=== PATIENT | male | born 1960 | race Caucasian/White ===

== ENCOUNTER 2022-10-16 19:53 | Inpatient (IN) ==
--- NOTE | 2022-10-16 20:25 | XRay Report ---
SINGLE VIEW CHEST CLINICAL HISTORY: Atypical chest pain. FINDINGS: An AP, portable, upright chest radiograph is obtained. No prior studies are available for c omparison at the time of dictation. The patient is status post midline sternotomy. The heart is enlar ged noting atherosclerotic calcification of the thoracic aorta. The pulmonary vasculature is nonconge sted. The lungs and pleural spaces are clear noting bibasilar scarring/atelectasis. No pneumothorax i s seen. The skeletal structures are osteopenic. The bony thorax is grossly intact. IMPRESSION: Cardiomegaly with no acute cardiopulmonary abnormality. ACT 112: Negative or not required by law. Electronically signed by: Willian Landon M.D. 10/16/2022 8:22 PM
[2022-10-16 20:28] LABS: Basophils # (auto) 0.02 K/uL (0-0.2); Basophils % (auto) 0.3 %; Eosinophils # (auto) 0.25 K/uL (0-0.50); Eosinophils % (auto) 3.4 %; Hematocrit (blood only) 34.3 % (40.1-51.0); Hemoglobin 11.5 g/dl (14.0-18.0); Immature Granulocytes # (auto) 0.01 K/uL (0.00-0.02); Immature Granulocytes % (auto) 0.1 %; Lymphocytes # (auto) 0.98 K/uL (1.2-3.4); Lymphocytes % (auto) 13.3 %; Mean Corpuscular Hemoglobin 31.8 pg (25.0-34.0); Mean Corpuscular Hgb Conc 33.5 g/dL (32.0-36.0); Mean Corpuscular Volume 94.8 fL (80.0-100.0); Mean Platelet Volume 10.2 fL (9.4-12.4); Monocytes # (auto) 0.79 K/uL (0.24-0.82); Monocytes % (auto) 10.7 %; Neutrophils # (auto) 5.32 K/uL (1.4-6.5); Neutrophils % (auto) 72.2 %; Platelet Count 237 K/uL (130-400); RDW Coefficient of Variation 17.4 % (11.5-14.5); RDW Standard Deviation 60.7 fL (36.4-46.3); Red Blood Count 3.62 M/uL (4.63-6.08); White Blood Count 7.37 K/ul (4.8-10.8)
[2022-10-16 20:40] LABS: D Dimer 370 ug/L FEU (0-500); INR 1.3 (0.9-1.1); Partial Thromboplastin Ratio 1.5; Partial Thromboplastin Time 40.3 Seconds (21.0-31.0); Prothrombin Time 13.8 Seconds (9.0-12.0)
[2022-10-16 20:46] LABS: Alanine Aminotransferase 18 U/L (7-52); Albumin Level 3.6 gm/dl (3.4-5.0); Alkaline Phosphatase 73 U/L (34-104); Anion Gap 6 (3-11); Aspartate Aminotransferase 25 U/L (13-39); BUN Creatinine Ratio 13.9 (10-20); Bilirubin,Total 0.4 mg/dl (0.2-1.0); Blood Urea Nitrogen 14 mg/dl (6-23); Carbon Dioxide 28 mmol/L (21-32); Chloride 104 mmol/L (98-107); Est GFR (Non-African American) 79.3 ml/min; Globulin 3.7 gm/dl (2.5-4.0); Glucose 101 mg/dl (70-99(Fasting)); Potassium 4.2 mmol/L (3.5-5.1); Sodium 138 mmol/L (136-145); Total Protein 7.3 gm/dl (6.0-8.3)
[2022-10-16 20:52] LABS: Troponin I High Sensitivity 19.6 pg/ml (0-20)
--- NOTE | 2022-10-16 20:57 | CT Scan Report ---
CT SCAN OF THE BRAIN WITHOUT IV CONTRAST CLINICAL HISTORY: Fall. COMPARISON STUDY: No priors. TECHNIQUE: Unenhanced axial CT scan of the brain is performed from the vertex to the skull base. A do se lowering technique was utilized adhering to the principles of ALARA. CT DOSE: 884.08 mGy.cm FINDINGS: Brain parenchyma: There is age-related involutional change noting mild subcortical and periventricula r microangiopathic disease. There is no hemorrhage, mass effect, or evidence of acute territorial isc hemia by CT criteria. Amaral-white matter differentiation is preserved. No extra-axial fluid collection is seen. Ventricles, sulci, cisterns: Prominent secondary to involutional change. Intracranial vasculature: There is atherosclerotic calcification of the cavernous carotid and vertebr al arteries. Calvarium: The skeletal structures are osteopenic. No depressed calvarial fracture is identified. Sinuses and mastoids: There is trace mucosal thickening in the right maxillary antrum. The remaining paranasal sinuses are clear. There is trace right mastoid effusion. The left mastoid air cells are we ll pneumatized. Cerumen is noted in the external auditory canals. Orbits: The bony orbits are grossly intact. IMPRESSION: There is no hemorrhage, mass effect, or evidence of acute territorial ischemia by CT crit trell. ACT 112: Negative or not required by law. Electronically signed by: Willian Landon M.D. 10/16/2022 8:54 PM
[2022-10-16 22:37] LABS: Acetaminophen < 3 ug/ml (10-30); Salicylate < 3.0 mg/dl (3.0-30)
[2022-10-16] MEDS ORDERED: NALOXONE HCL 0.4 MG/1 ML VIAL/CARP ONE (23:16)
--- NOTE | 2022-10-16 23:29 | Emergency Department Note ---
History of Present Illness General Chief complaint: Chest Pain Stated complaint: CHEST PAIN, SOB Time Seen by Provider: 10/16/22 20:08 History of Present Illness Provider complaint: Chest pain shortness of breath Onset (ago): day(s) 1 Maximum Pain Intensity: 7 62-year-old male presents emergency department for chest pain shortness of breat h. Patient reports he recently took a bus from [facility] to here to stay with friends and when he got here they kicked him out. Patient states he is now homeless and is having chest pain and difficulty breathing. Patient states he takes Xarelto for A. fib. He states pain is located in the center of his chest. Patient states he recently fell and hit his head. Patient reports that he is also having thoughts of wanting to kill himself with thoughts to overdose on his Seroquel. Past Med/Surg History Medical History (Updated 10/16/22 @ 23:38 by Walter Chase) Atrial fibrillation HTN (hypertension) No pertinent family history Surgical History (Updated 10/16/22 @ 23:27 by Walter Chase) No pertinent past surgical history Social History Smoking Status: Current every day smoker Preferred Language: Citizen Of [place] Feels Safe at Home: Yes Physical Exam Vital Signs Vital Signs - 24 hr 10/16/22 19:58 10/16/22 21:16 10/16/22 23:07 Temperature 36.5 C Temperature Source Temporal Artery Scan Pulse Rate 86 Pulse Rate [Apical] 67 75 Pulse Rate from SpO2 Sensor Pulse Rhythm Regular Pulse Rhythm [Apical] Regular Pulse Strength Normal Pulse Strength [Apical] Normal Respiratory Rate 18 16 20 Respiratory Effort / Characteristics Non-Labored Spontaneous Non-Labored Respiratory Depth Normal Normal Respiratory Pattern Regular Regular Blood Pressure 139/101 H Blood Pressure [Right Arm] 91/65 L 89/61 L Blood Pressure Mean 113 Blood Pressure Mean [Right Arm] 73 70 Blood Pressure Position Sitting Pulse Oximetry 96 98 Oxygen Delivery Method Room Air Room Air Sepsis Recent Fever Within 48 Hours No Sepsis New/Unexplained Change in Mental Status N/A Sepsis Action Taken by Nursing No Action Required 10/16/22 23:20 10/16/22 20:48 10/16/22 20:50 Temperature Temperature Source Pulse Rate 72 74 Pulse Rate [Apical] 72 Pulse Rate from SpO2 Sensor Pulse Rhythm Pulse Rhythm [Apical] Pulse Strength Pulse Strength [Apical] Respiratory Rate 20 19 16 Respiratory Effort / Characteristics Respiratory Depth Respiratory Pattern Blood Pressure Blood Pressure [Right Arm] 114/77 Blood Pressure Mean Blood Pressure Mean [Right Arm] 89 Blood Pressure Position Pulse Oximetry 96 Oxygen Delivery Method Room Air Sepsis Recent Fever Within 48 Hours Sepsis New/Unexplained Change in Mental Status Sepsis Action Taken by Nursing 10/16/22 21:00 10/16/22 21:10 10/16/22 21:18 Temperature Temperature Source Pulse Rate 71 71 Pulse Rate [Apical] Pulse Rate from SpO2 Sensor Pulse Rhythm Pulse Rhythm [Apical] Pulse Strength Pulse Strength [Apical] Respiratory Rate 17 17 Respiratory Effort / Characteristics Respiratory Depth Respiratory Pattern Blood Pressure 91/65 L Blood Pressure [Right Arm] Blood Pressure Mean 73 Blood Pressure Mean [Right Arm] Blood Pressure Position Pulse Oximetry Oxygen Delivery Method Sepsis Recent Fever Within 48 Hours Sepsis New/Unexplained Change in Mental Status Sepsis Action Taken by Nursing 10/16/22 21:18 10/16/22 21:20 10/16/22 21:30 Temperature Temperature Source Pulse Rate 79 78 77 Pulse Rate [Apical] Pulse Rate from SpO2 Sensor Pulse Rhythm Pulse Rhythm [Apical] Pulse Strength Pulse Strength [Apical] Respiratory Rate 20 20 15 Respiratory Effort / Characteristics Respiratory Depth Respiratory Pattern Blood Pressure Blood Pressure [Right Arm] Blood Pressure Mean Blood Pressure Mean [Right Arm] Blood Pressure Position Pulse Oximetry Oxygen Delivery Method Sepsis Recent Fever Within 48 Hours Sepsis New/Unexplained Change in Mental Status Sepsis Action Taken by Nursing 10/16/22 21:40 10/16/22 21:50 10/16/22 22:00 Temperature Temperature Source Pulse Rate 66 71 Pulse Rate [Apical] Pulse Rate from SpO2 Sensor Pulse Rhythm Pulse Rhythm [Apical] Pulse Strength Pulse Strength [Apical] Respiratory Rate 12 19 Respiratory Effort / Characteristics Respiratory Depth Respiratory Pattern Blood Pressure 88/63 L Blood Pressure [Right Arm] Blood Pressure Mean 71 Blood Pressure Mean [Right Arm] Blood Pressure Position Pulse Oximetry Oxygen Delivery Method Sepsis Recent Fever Within 48 Hours Sepsis New/Unexplained Change in Mental Status Sepsis Action Taken by Nursing 10/16/22 22:00 10/16/22 22:10 10/16/22 22:20 Temperature Temperature Source Pulse Rate 81 73 74 Pulse Rate [Apical] Pulse Rate from SpO2 Sensor 40 L Pulse Rhythm Pulse Rhythm [Apical] Pulse Strength Pulse Strength [Apical] Respiratory Rate 20 16 19 Respiratory Effort / Characteristics Respiratory Depth Respiratory Pattern Blood Pressure Blood Pressure [Right Arm] Blood Pressure Mean Blood Pressure Mean [Right Arm] Blood Pressure Position Pulse Oximetry 80 L Oxygen Delivery Method Sepsis Recent Fever Within 48 Hours Sepsis New/Unexplained Change in Mental Status Sepsis Action Taken by Nursing 10/16/22 22:30 10/16/22 22:40 10/16/22 22:50 Temperature Temperature Source Pulse Rate 78 85 67 Pulse Rate [Apical] Pulse Rate from SpO2 Sensor Pulse Rhythm Pulse Rhythm [Apical] Pulse Strength Pulse Strength [Apical] Respiratory Rate 18 13 16 Respiratory Effort / Characteristics Respiratory Depth Respiratory Pattern Blood Pressure Blood Pressure [Right Arm] Blood Pressure Mean Blood Pressure Mean [Right Arm] Blood Pressure Position Pulse Oximetry Oxygen Delivery Method Sepsis Recent Fever Within 48 Hours Sepsis New/Unexplained Change in Mental Status Sepsis Action Taken by Nursing 10/16/22 23:00 10/16/22 23:00 10/16/22 23:10 Temperature Temperature Source Pulse Rate 65 Pulse Rate [Apical] Pulse Rate from SpO2 Sensor Pulse Rhythm Pulse Rhythm [Apical] Pulse Strength Pulse Strength [Apical] Respiratory Rate 16 Respiratory Effort / Characteristics Respiratory Depth Respiratory Pattern Blood Pressure 89/61 L 114/77 Blood Pressure [Right Arm] Blood Pressure Mean 70 89 Blood Pressure Mean [Right Arm] Blood Pressure Position Pulse Oximetry Oxygen Delivery Method Sepsis Recent Fever Within 48 Hours Sepsis New/Unexplained Change in Mental Status Sepsis Action Taken by Nursing 10/16/22 23:10 10/16/22 23:20 Temperature Temperature Source Pulse Rate 70 73 Pulse Rate [Apical] Pulse Rate from SpO2 Sensor 72 Pulse Rhythm Pulse Rhythm [Apical] Pulse Strength Pulse Strength [Apical] Respiratory Rate 15 17 Respiratory Effort / Characteristics Respiratory Depth Respiratory Pattern Blood Pressure Blood Pressure [Right Arm] Blood Pressure Mean Blood Pressure Mean [Right Arm] Blood Pressure Position Pulse Oximetry 99 Oxygen Delivery Method Sepsis Recent Fever Within 48 Hours Sepsis New/Unexplained Change in Mental Status Sepsis Action Taken by Nursing Labs show physical Exam GENERAL: He is oriented to person, place, and time. He appears well-developed and well-nourished. HENT: Exam performed. - Head: Normocephalic and atraumatic. - Right Ear: External ear normal. No mastoid tenderness. - Left Ear: External ear normal. No mastoid tenderness. - Mouth/Throat: The oropharynx is clear and moist. No trismus in the jaw. No dental abscesses or uvula swelling. No oropharyngeal exudate or tonsillar abscesses. EYES: Conjunctivae and EOM are normal. Pupils are equal, round, and reactive to light. Right eye exhibits no discharge. Left eye exhibits no discharge. No scle ral icterus. NECK: Normal range of motion. Neck supple. No JVD present. No spinous process tenderness present. No carotid bruit present. No rigidity. No tracheal deviation and normal range of motion present. No Brudzinski's sign and no Kernig's sign noted. CV: Normal rate, irregular rhythm, normal heart sounds and intact distal pulses. There is no peripheral edema. Palpable radial pulses bue. PULM/CHEST: Effort normal and breath sounds normal. No respiratory distress. No stridor. He has no wheezes. He has no rales. - Chest Wall: He exhibits no tenderness. ABD: The abdomen is soft. MUSC/SKEL: Normal range of motion. There is no peripheral edema, tenderness or deformity. LYMPH: No cervical adenopathy. NEURO: He is alert and oriented to person, place, and time. He has normal strength. No cranial nerve deficit or sensory deficit. Coordination and gait normal. GCS eye subscore is 4. GCS verbal subscore is 5. GCS motor subscore is 6. Cerebellar tests wnl. SKIN: Skin is warm and dry. He is not diaphoretic. PSYCH: Patient endorsing suicidal ideation. Course Course 2008: The patient was evaluated in room B4. A complete history and physical exam was performed Administered Medications Discontinued Medications Naloxone HCl (Naloxone Hcl 0.4 Mg/1 Ml Vial/Carp) Confirm Administered Dose 0.4 mg .ROUTE .STK-MED ONE Stop: 10/16/22 23:17 Last Admin: 10/16/22 23:22 Dose: 0.4 mg Documented By: [facility] Medical Decision Making Laboratory Data Attestation: I reviewed the patient's lab results. 10/16/22 20:10 10/16/22 20:10 Lab Results 10/16/22 10/16/22 10/16/22 Range/Units 20:10 20:10 20:10 WBC 7.37 (4.8-10.8) K/ul RBC 3.62 L (4.63-6.08) M/uL Hgb 11.5 L (14.0-18.0) g/dl Hct 34.3 L (40.1-51.0) % MCV 94.8 (80.0-100.0) fL MCH 31.8 (25.0-34.0) pg MCHC 33.5 (32.0-36.0) g/dL RDW Std Deviation 60.7 H (36.4-46.3) fL RDW Coeff of Spencer 17.4 H (11.5-14.5) % Plt Count 237 (130-400) K/uL MPV 10.2 (9.4-12.4) fL Immature Gran % (Auto) 0.1 % Neut % (Auto) 72.2 % Lymph % (Auto) 13.3 % [place] % (Auto) 10.7 % Eos % (Auto) 3.4 % Baso % (Auto) 0.3 % Neut # (Auto) 5.32 (1.4-6.5) K/uL Lymph # (Auto) 0.98 L (1.2-3.4) K/uL [place] # (Auto) 0.79 (0.24-0.82) K/uL Eos # (Auto) 0.25 (0-0.50) K/uL Baso # (Auto) 0.02 (0-0.2) K/uL Immature Gran # (Auto) 0.01 (0.00-0.02) K/uL PT 13.8 H (9.0-12.0) Seconds INR 1.3 H (0.9-1.1) APTT 40.3 H (21.0-31.0) Seconds PTT Ratio 1.5 D-Dimer 370 (0-500) ug/L FEU Sodium 138 (136-145) mmol/L Potassium 4.2 (3.5-5.1) mmol/L Chloride 104 (98-107) mmol/L Carbon Dioxide 28 (21-32) mmol/L Anion Gap 6 (3-11) BUN 14 (6-23) mg/dl Creatinine 1.01 (0.6-1.4) mg/dl Est Cr Clr Drug Dosing Not Reportable Est GFR ( Amer) 92.0 ml/min Est GFR (Non-Af Amer) 79.3 ml/min BUN/Creatinine Ratio 13.9 (10-20) Glucose 101 H (70-99(Fasting)) mg/dl POC Glucose (70-99) mg/dl Calcium 9.0 (8.5-10.1) mg/dl Total Bilirubin 0.4 (0.2-1.0) mg/dl AST 25 (13-39) U/L ALT 18 (7-52) U/L Alkaline Phosphatase 73 (34-104) U/L Troponin I High Sens 19.6 (0-20) pg/ml Total Protein 7.3 (6.0-8.3) gm/dl Albumin 3.6 (3.4-5.0) gm/dl Globulin 3.7 (2.5-4.0) gm/dl Albumin/Globulin Ratio 1.0 (0.9-2) Salicylates Acetaminophen Ethyl Alcohol mg/dL 10/16/22 10/16/22 10/16/22 Range/Units 20:27 20:27 21:49 WBC (4.8-10.8) K/ul RBC (4.63-6.08) M/uL Hgb (14.0-18.0) g/dl Hct (40.1-51.0) % MCV (80.0-100.0) fL MCH (25.0-34.0) pg MCHC (32.0-36.0) g/dL RDW Std Deviation (36.4-46.3) fL RDW Coeff of Spencer (11.5-14.5) % Plt Count (130-400) K/uL MPV (9.4-12.4) fL Immature Gran % (Auto) % Neut % (Auto) % Lymph % (Auto) % [place] % (Auto) % Eos % (Auto) % Baso % (Auto) % Neut # (Auto) (1.4-6.5) K/uL Lymph # (Auto) (1.2-3.4) K/uL [place] # (Auto) (0.24-0.82) K/uL Eos # (Auto) (0-0.50) K/uL Baso # (Auto) (0-0.2) K/uL Immature Gran # (Auto) (0.00-0.02) K/uL PT (9.0-12.0) Seconds INR (0.9-1.1) APTT (21.0-31.0) Seconds PTT Ratio D-Dimer (0-500) ug/L FEU Sodium (136-145) mmol/L Potassium (3.5-5.1) mmol/L Chloride (98-107) mmol/L Carbon Dioxide (21-32) mmol/L Anion Gap (3-11) BUN (6-23) mg/dl Creatinine (0.6-1.4) mg/dl Est Cr Clr Drug Dosing Est GFR ( Amer) ml/min Est GFR (Non-Af Amer) ml/min BUN/Creatinine Ratio (10-20) Glucose (70-99(Fasting)) mg/dl POC Glucose (70-99) mg/dl Calcium (8.5-10.1) mg/dl Total Bilirubin (0.2-1.0) mg/dl AST (13-39) U/L ALT (7-52) U/L Alkaline Phosphatase (34-104) U/L Troponin I High Sens (0-20) pg/ml Total Protein (6.0-8.3) gm/dl Albumin (3.4-5.0) gm/dl Globulin (2.5-4.0) gm/dl Albumin/Globulin Ratio (0.9-2) Salicylates Cancelled Acetaminophen Cancelled Ethyl Alcohol mg/dL Cancelled < 10.0 10/16/22 10/16/22 Range/Units 21:49 23:18 WBC (4.8-10.8) K/ul RBC (4.63-6.08) M/uL Hgb (14.0-18.0) g/dl Hct (40.1-51.0) % MCV (80.0-100.0) fL MCH (25.0-34.0) pg MCHC (32.0-36.0) g/dL RDW Std Deviation (36.4-46.3) fL RDW Coeff of Spencer (11.5-14.5) % Plt Count (130-400) K/uL MPV (9.4-12.4) fL Immature Gran % (Auto) % Neut % (Auto) % Lymph % (Auto) % [place] % (Auto) % Eos % (Auto) % Baso % (Auto) % Neut # (Auto) (1.4-6.5) K/uL Lymph # (Auto) (1.2-3.4) K/uL [place] # (Auto) (0.24-0.82) K/uL Eos # (Auto) (0-0.50) K/uL Baso # (Auto) (0-0.2) K/uL Immature Gran # (Auto) (0.00-0.02) K/uL PT (9.0-12.0) Seconds INR (0.9-1.1) APTT (21.0-31.0) Seconds PTT Ratio D-Dimer (0-500) ug/L FEU Sodium (136-145) mmol/L Potassium (3.5-5.1) mmol/L Chloride (98-107) mmol/L Carbon Dioxide (21-32) mmol/L Anion Gap (3-11) BUN (6-23) mg/dl Creatinine (0.6-1.4) mg/dl Est Cr Clr Drug Dosing Est GFR ( Amer) ml/min Est GFR (Non-Af Amer) ml/min BUN/Creatinine Ratio (10-20) Glucose (70-99(Fasting)) mg/dl POC Glucose 95 (70-99) mg/dl Calcium (8.5-10.1) mg/dl Total Bilirubin (0.2-1.0) mg/dl AST (13-39) U/L ALT (7-52) U/L Alkaline Phosphatase (34-104) U/L Troponin I High Sens (0-20) pg/ml Total Protein (6.0-8.3) gm/dl Albumin (3.4-5.0) gm/dl Globulin (2.5-4.0) gm/dl Albumin/Globulin Ratio (0.9-2) Salicylates < 3.0 L Acetaminophen < 3 L Ethyl Alcohol mg/dL Imaging Data Radiologist's Impression: Chest X-Ray 10/16/22 20:02 SINGLE VIEW CHEST CLINICAL HISTORY: Atypical chest pain. FINDINGS: An AP, portable, upright chest radiograph is obtained. No prior studies are available for comparison at the time of dictation. The patient is status post midline sternotomy. The heart is enlarged noting atherosclerotic calcification of the thoracic aorta. The pulmonary vasculature is noncongested. The lungs and pleural spaces are clear noting bibasilar scarring/atelectasis. No pneumothorax is seen. The skeletal structures are osteopenic. The bony thorax is grossly intact. IMPRESSION: Cardiomegaly with no acute cardiopulmonary abnormality. ACT 112: Negative or not required by law. Electronically signed by: Willian Landon M.D. 10/16/2022 8:[address] 10/16/22 20:23 CT SCAN OF THE BRAIN WITHOUT IV CONTRAST CLINICAL HISTORY: Fall. COMPARISON STUDY: No priors. TECHNIQUE: Unenhanced axial CT scan of the brain is performed from the vertex to the skull base. A dose lowering technique was utilized adhering to the principles of ALARA. CT DOSE: 884.08 mGy.cm FINDINGS: Brain parenchyma: There is age-related involutional change noting mild subcortical and periventricular microangiopathic disease. There is no hemorrhage, mass effect, or evidence of acute territorial ischemia by CT criteria. Amaral-white matter differentiation is preserved. No extra-axial fluid collection is seen. Ventricles, sulci, cisterns: Prominent secondary to involutional change. Intracranial vasculature: There is atherosclerotic calcification of the cavernous carotid and vertebral arteries. Calvarium: The skeletal structures are osteopenic. No depressed calvarial fracture is identified. Sinuses and mastoids: There is trace mucosal thickening in the right maxillary antrum. The remaining paranasal sinuses are clear. There is trace right mastoid effusion. The left mastoid air cells are well pneumatized. Cerumen is noted in the external auditory canals. Orbits: The bony orbits are grossly intact. IMPRESSION: There is no hemorrhage, mass effect, or evidence of acute territorial ischemia by CT criteria. ACT 112: Negative or not required by law. Electronically signed by: Willian Landon M.D. 10/16/2022 8:54 PM MDM Narrative Cardiac monitoring: An order was placed for continuous cardiac monitoring. The monitor shows a rate of 80 with atrial fibrilation rhythm Patient was moved back to the mental health area. Vital signs stable. Labs and imaging are within normal limits. While in the mental health area that the patient became more somnolent and did state he took her Seroquel prior to arrival in the emergency department and he is not sure how many he took. Patient will be admitted to the [facility] spitalist team Dr. Elliott notified. Impression & Plan Chest pain, Suicidal ideation Discharge Plan Visit Data Chief Complaint: Chest Pain Stated Complaint: CHEST PAIN, SOB ED Provider: Walter Chase Discharge Problem: Chest pain, Suicidal ideation Patient Disposition: Being Evaluated by Hospitalist Forms Stand Alone Forms: My [facility] Referrals Referrals: PCP,NO [Primary Care Provider] -
--- NOTE | 2022-10-17 02:28 | History & Physical Report ---
Date of Service October 17, 2022 Assessment & Plan (1) Chest pain: Plan: Troponin and EKG do not suggest ischemic origin -Telemetry monitoring -Trend troponin (2) Suicidal ideation: Plan: Patient reports persistent SI. Unable to ascertain if he has plan at this time -Suicide precautions, safe tray -1:1 sitter -Psychiatry evaluation (3) Atrial fibrillation: Plan: Rate controlled. Uncertain which medications he takes -Monitor for now -Attempt to obtain additional medical information F/E/N - LR at 125mL/hr x 1 liter, electroltyes WNL, Heart healthy diet as tolerated Ppx - Lovenox Code - Full Dispo -Admit to medical with telemetry History of Present Illness Chief Complaint: chest pain Primary Care Provider: NO PCP Patient is poor historian. Unable to provide details of events prior to arrival. Is somnolent during exam. Does not answer questions freely or participate with exam. History obtained predominantly through chart review and discussion with ER staff. Patient is a 62yo male with history of AF presenting with chest pain. Patient is from [place], [place]. He took a bus to [place] to visit friends. During the trip he developed chest pain. He then reported suicidal ideation. When asked about the chest pain he was unable to provide specific details. He reports his chest pain is now mostly resolved. Regarding the suicidal ideations - he reports that he always feels like killing himself and he has tried before but did not expand on this. He was unable to tell me if he has any formal psychiatric diagnoses. He did mention taking Seroquel but is unable to tell me if he takes any additional psychiatric medications. He did not have a formal plan for suicide. Unable to be verbally contracted for safety. Allergies Allergy/AdvReac Type Severity Reaction Status Date / Time No Known Allergies Allergy Unverified 10/17/22 02:22 Past Med/Surg History Medical History (Updated 10/17/22 @ 02:22 by Amber Elliott DO) Atrial fibrillation HTN (hypertension) Surgical History No pertinent past surgical history Social History Smoking Status: Current every day smoker Preferred Language: Citizen Of [place] Feels Safe at Home: Yes Review of Systems Review of Systems: Unobtainable due to mental health condition Physical Exam Physical Exam: General: patient somnolent, does not freely answer questions or participate with exam, non-toxic Skin: warm, dry, intact, no rashes or lesions HEENT: NC/AT, PERRL, EOMI, anicteric sclera, conjunctiva without injection, external ear normal to inspection and nontender, nares patent, dry mucus membranes, dentition intact, no oropharyngeal lesions, neck supple, trachea midline, no LAD, no thyromegaly, no JVD Heart: +S1/S2, irregularly irregular, no m/r/g Lungs: equal air entry bilaterally, no rales/rhonchi/wheezes Abd: +BS, soft, NT/ND, no masses/organomegaly/ascites Ext: warm, 2+ pulses in UE/LE bilaterally, no clubbing/cyanosis or edema Neuro: nonfocal, moving all extremities with equal strength Results & Data Results & Data ([facility]) Vital Signs (Past 12 Hours) Vital Signs Temp Pulse Pulse Resp BP BP Pulse Ox 10/17/22 02:00 63 12 10/17/22 02:00 97/70 L 10/17/22 01:50 71 21 10/17/22 01:46 87/58 L 10/17/22 01:46 71 16 10/17/22 01:45 98/70 L 10/17/22 01:45 70 17 10/17/22 01:40 77 15 10/17/22 01:37 81/53 L 10/17/22 01:37 72 14 10/17/22 01:36 80/50 L 10/17/22 01:36 65 15 10/17/22 01:32 85/54 L 10/17/22 01:32 73 14 10/17/22 01:30 67 14 90 10/17/22 01:20 71 14 100 10/17/22 01:10 68 15 96 10/17/22 01:00 69 15 95 10/17/22 01:00 97/60 L 10/17/22 00:50 71 15 99 10/17/22 00:40 78 15 99 10/17/22 00:30 78 13 95 10/17/22 00:20 71 16 95 10/17/22 00:10 76 15 10/17/22 00:00 83 16 10/17/22 00:00 121/97 10/16/22 23:50 84 24 10/16/22 23:40 69 16 10/16/22 23:30 79 12 92 10/17/22 00:34 83 L 10/17/22 00:15 64 20 121/97 97 10/16/22 23:20 73 17 99 10/16/22 23:10 70 15 10/16/22 23:10 114/77 10/16/22 23:00 65 16 10/16/22 23:00 89/61 L 10/16/22 22:50 67 16 10/16/22 22:40 85 13 10/16/22 22:30 78 18 10/16/22 22:20 74 19 10/16/22 22:10 73 16 80 L 10/16/22 22:00 81 20 10/16/22 22:00 88/63 L 10/16/22 21:50 71 19 10/16/22 21:40 66 12 10/16/22 21:30 77 15 10/16/22 21:20 78 20 10/16/22 21:18 79 20 10/16/22 21:18 91/65 L 10/16/22 21:10 71 17 10/16/22 21:00 71 17 10/16/22 20:50 74 16 10/16/22 20:48 72 19 10/16/22 23:20 72 20 114/77 96 10/16/22 23:07 75 20 89/61 L 98 10/16/22 21:16 67 16 91/65 L 10/16/22 19:58 36.5 C 86 18 139/101 H 96 O2 Del Method O2 Flow Rate 10/17/22 02:00 10/17/22 02:00 10/17/22 01:50 10/17/22 01:46 10/17/22 01:46 10/17/22 01:45 10/17/22 01:45 10/17/22 01:40 10/17/22 01:37 10/17/22 01:37 10/17/22 01:36 10/17/22 01:36 10/17/22 01:32 10/17/22 01:32 10/17/22 01:30 10/17/22 01:20 10/17/22 01:10 10/17/22 01:00 10/17/22 01:00 10/17/22 00:50 10/17/22 00:40 10/17/22 00:30 10/17/22 00:20 10/17/22 00:10 10/17/22 00:00 10/17/22 00:00 10/16/22 23:50 10/16/22 23:40 10/16/22 23:30 10/17/22 00:34 Nasal Cannula 4 10/17/22 00:15 Room Air 10/16/22 23:20 10/16/22 23:10 10/16/22 23:10 10/16/22 23:00 10/16/22 23:00 10/16/22 22:50 10/16/22 22:40 10/16/22 22:30 10/16/22 22:20 10/16/22 22:10 10/16/22 22:00 10/16/22 22:00 10/16/22 21:50 10/16/22 21:40 10/16/22 21:30 10/16/22 21:20 10/16/22 21:18 10/16/22 21:18 10/16/22 21:10 10/16/22 21:00 10/16/22 20:50 10/16/22 20:48 10/16/22 23:20 Room Air 10/16/22 23:07 Room Air 10/16/22 21:16 10/16/22 19:58 Room Air Laboratory Results Laboratory Results WBC 7.37 K/ul (4.8-10.8) 10/16/22 20:10 RBC 3.62 M/uL (4.63-6.08) L 10/16/22 20:10 Hgb 11.5 g/dl (14.0-18.0) L 10/16/22 20:10 Hct 34.3 % (40.1-51.0) L 10/16/22 20:10 MCV 94.8 fL (80.0-100.0) 10/16/22 20:10 MCH 31.8 pg (25.0-34.0) 10/16/22 20:10 MCHC 33.5 g/dL (32.0-36.0) 10/16/22 20:10 RDW Std Deviation 60.7 fL (36.4-46.3) H 10/16/22 20:10 RDW Coeff of Spencer 17.4 % (11.5-14.5) H 10/16/22 20:10 Plt Count 237 K/uL (130-400) 10/16/22 20:10 MPV 10.2 fL (9.4-12.4) 10/16/22 20:10 Immature Gran % (Auto) 0.1 % 10/16/22 20:10 Neut % (Auto) 72.2 % 10/16/22 20:10 Lymph % (Auto) 13.3 % 10/16/22 20:10 [place] % (Auto) 10.7 % 10/16/22 20:10 Eos % (Auto) 3.4 % 10/16/22 20:10 Baso % (Auto) 0.3 % 10/16/22 20:10 Neut # (Auto) 5.32 K/uL (1.4-6.5) 10/16/22 20:10 Lymph # (Auto) 0.98 K/uL (1.2-3.4) L 10/16/22 20:10 [place] # (Auto) 0.79 K/uL (0.24-0.82) 10/16/22 20:10 Eos # (Auto) 0.25 K/uL (0-0.50) 10/16/22 20:10 Baso # (Auto) 0.02 K/uL (0-0.2) 10/16/22 20:10 Immature Gran # (Auto) 0.01 K/uL (0.00-0.02) 10/16/22 20:10 PT 13.8 Seconds (9.0-12.0) H 10/16/22 20:10 INR 1.3 (0.9-1.1) H 10/16/22 20:10 APTT 40.3 Seconds (21.0-31.0) H 10/16/22 20:10 PTT Ratio 1.5 10/16/22 20:10 D-Dimer 370 ug/L FEU (0-500) 10/16/22 20:10 Sodium 138 mmol/L (136-145) 10/16/22 20:10 Potassium 4.2 mmol/L (3.5-5.1) 10/16/22 20:10 Chloride 104 mmol/L (98-107) 10/16/22 20:10 Carbon Dioxide 28 mmol/L (21-32) 10/16/22 20:10 Anion Gap 6 (3-11) 10/16/22 20:10 BUN 14 mg/dl (6-23) 10/16/22 20:10 Creatinine 1.01 mg/dl (0.6-1.4) 10/16/22 20:10 Est Cr Clr Drug Dosing Not Reportable 10/16/22 20:10 Est GFR ( Amer) 92.0 ml/min 10/16/22 20:10 Est GFR (Non-Af Amer) 79.3 ml/min 10/16/22 20:10 BUN/Creatinine Ratio 13.9 (10-20) 10/16/22 20:10 Glucose 101 mg/dl (70-99(Fasting)) H 10/16/22 20:10 POC Glucose 95 mg/dl (70-99) 10/16/22 23:18 Calcium 9.0 mg/dl (8.5-10.1) 10/16/22 20:10 Total Bilirubin 0.4 mg/dl (0.2-1.0) 10/16/22 20:10 AST 25 U/L (13-39) 10/16/22 20:10 ALT 18 U/L (7-52) 10/16/22 20:10 Alkaline Phosphatase 73 U/L (34-104) 10/16/22 20:10 Troponin I High Sens 19.6 pg/ml (0-20) 10/16/22 20:10 Total Protein 7.3 gm/dl (6.0-8.3) 10/16/22 20:10 Albumin 3.6 gm/dl (3.4-5.0) 10/16/22 20:10 Globulin 3.7 gm/dl (2.5-4.0) 10/16/22 20:10 Albumin/Globulin Ratio 1.0 (0.9-2) 10/16/22 20:10 Salicylates < 3.0 mg/dl (3.0-30) L 10/16/22 21:49 Acetaminophen < 3 ug/ml (10-30) L 10/16/22 21:49 Ethyl Alcohol mg/dL < 10.0 mg/dl (<10.0) 10/16/22 21:49 SARS-CoV-2, RNA, NAAT NEGATIVE (NEGATIVE) 10/16/22 23:34 Impressions Chest X-Ray 10/16/22 20:02 SINGLE VIEW CHEST CLINICAL HISTORY: Atypical chest pain. FINDINGS: An AP, portable, upright chest radiograph is obtained. No prior studies are available for comparison at the time of dictation. The patient is status post midline sternotomy. The heart is enlarged noting atherosclerotic calcification of the thoracic aorta. The pulmonary vasculature is noncongested. The lungs and pleural spaces are clear noting bibasilar scarring/atelectasis. No pneumothorax is seen. The skeletal structures are osteopenic. The bony thorax is grossly intact. IMPRESSION: Cardiomegaly with no acute cardiopulmonary abnormality. ACT 112: Negative or not required by law. Electronically signed by: Willian Landon M.D. 10/16/2022 8:[address] 10/16/22 20:23 CT SCAN OF THE BRAIN WITHOUT IV CONTRAST CLINICAL HISTORY: Fall. COMPARISON STUDY: No priors. TECHNIQUE: Unenhanced axial CT scan of the brain is performed from the vertex to the skull base. A dose lowering technique was utilized adhering to the principles of ALARA. CT DOSE: 884.08 mGy.cm FINDINGS: Brain parenchyma: There is age-related involutional change noting mild subcortical and periventricular microangiopathic disease. There is no hemorrhage, mass effect, or evidence of acute territorial ischemia by CT criteria. Amaral-white matter differentiation is preserved. No extra-axial fluid collection is seen. Ventricles, sulci, cisterns: Prominent secondary to involutional change. Intracranial vasculature: There is atherosclerotic calcification of the cavernous carotid and vertebral arteries. Calvarium: The skeletal structures are osteopenic. No depressed calvarial fracture is identified. Sinuses and mastoids: There is trace mucosal thickening in the right maxillary antrum. The remaining paranasal sinuses are clear. There is trace right mastoid effusion. The left mastoid air cells are well pneumatized. Cerumen is noted in the external auditory canals. Orbits: The bony orbits are grossly intact. IMPRESSION: There is no hemorrhage, mass effect, or evidence of acute territorial ischemia by CT criteria. ACT 112: Negative or not required by law. Electronically signed by: Willian Landon M.D. 10/16/2022 8:54 PM PG Care Time/CCT Total # of Minutes Spent Total Time Spent with Patient: Total time spent is greater than 50% in coordination of care (as documented) at patient's floor/unit and/or counseling patient: Coding Level of Care Code 01817 INT INP/OBS CARE 2/55MIN Diagnoses Chest pain R07.9 Chest pain type: unspecified Suicidal ideation R45.851 Atrial fibrillation I48.91 (1) Chest pain Chest pain type: unspecified Qualified Code(s): R07.9 - Chest pain, unspecified
[2022-10-17] MEDS ORDERED: ACETAMINOPHEN 325 MG TAB PO PRN (03:18)
[2022-10-17] MEDS: LACTATED RINGER'S 1,000 ML IV SCH ×3 (03:29→17:58)
[2022-10-17 04:11] LABS: Hematocrit (blood only) 34.3 % (40.1-51.0); Hemoglobin 11.6 g/dl (14.0-18.0); Mean Corpuscular Hemoglobin 31.8 pg (25.0-34.0); Mean Corpuscular Hgb Conc 33.8 g/dL (32.0-36.0); Mean Platelet Volume 10.2 fL (9.4-12.4); Platelet Count 230 K/uL (130-400); RDW Coefficient of Variation 17.8 % (11.5-14.5); RDW Standard Deviation 61.2 fL (36.4-46.3); Red Blood Count 3.65 M/uL (4.63-6.08)
[2022-10-17 04:34] LABS: BUN Creatinine Ratio 16.3 (10-20); Calcium 8.5 mg/dl (8.5-10.1); Creatinine Clr Calc Pharmacy 83.2 ml/min; Est GFR (African American) 95.4 ml/min; Est GFR (Non-African American) 82.3 ml/min; Potassium 3.5 mmol/L (3.5-5.1)
[2022-10-17 04:38] LABS: Troponin I High Sensitivity 16.7 pg/ml (0-20)
[2022-10-17 06:05] LABS: Appearance Urine Clear (Clear); Bacteria Urine Automated Negative (Negative); Bilirubin Urine Negative (Negative); Blood Urine Negative (Negative); Color Urine Dark Yellow; Glucose Urine UA Negative (Negative); Ketones Urine Trace (Negative); Leukocyte Esterase Urine Trace (Negative); Nitrite Urine Negative (Negative); Protein Urine 1+ (Negative); RBC Urine Automated 0-4 /hpf (0-4); Specific Gravity Urine 1.022 (1.000-1.030); Urobilinogen Urine Negative (Negative)
[2022-10-17 06:28] LABS: Amphetamines+Metham, Urine Neg (Neg); Barbiturates, Urine Neg (Neg); Benzodiazepine, Urine Neg (Neg); Cocaine, Urine Neg (Neg); MDMA (Ecstacy), Urine Neg (Neg); Methadone, Urine Neg (Neg); Opiate, Urine Neg (Neg); Phencyclidine, Urine Neg (Neg)
[2022-10-17] MEDS ORDERED: ENOXAPARIN INJ 40 MG/0.4 ML SYR SQ SCH (09:00)
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
[2022-10-17] MEDS: PANTOprazole 40 MG TAB PO SCH (12:48)
--- NOTE | 2022-10-17 15:27 | Hospitalist Progress Note ---
Date of Service October 17, 2022 Assessment & Plan (1) Chest pain: Plan: Troponin and EKG do not suggest ischemic origin -Now resolved -Telemetry monitoring -Normal trops (2) Suicidal ideation: Plan: Patient reports persistent SI. -evaluated by Psych, deemed not a danger to self or society -Discontinue 1:1 sitter (3) Atrial fibrillation: Plan: Rate controlled. Uncertain which medications he takes -Monitor for now -Attempt to obtain additional medical information -Elevated [id number] score, will start Eliquis 5mg BID (4) Anxiety disorder, unspecified: Plan: evaluated by psych patient has a long history of unspecified anxiety disorder recently relocated from [place] for better psych facility mgt Will start Seroquel and escitalopram per Psych (5) HTN (hypertension): Plan: BP 150/87 will start on Amlodipine (6) Trauma and stressor-related disorder: Plan F/E/N - Heart healthy diet as tolerated Ppx - Lovenox Code - Full Dispo -patient will need placement or longterm, mireya is currently homeless Admission and Anticipated Discharge Date Admission Date: October 16, 2022 Results & Data Results & Data ([facility]) Vital Signs (Past 12 Hours) Vital Signs Temp Pulse Pulse Resp BP Pulse Ox O2 Del Method 10/17/22 11:03 98.2 F 74 18 150/87 H 98 Room Air 10/17/22 07:24 98.1 F 65 18 130/78 95 Room Air 10/17/22 07:13 67 10/17/22 03:27 59 L 10/17/22 03:48 Room Air PG Care Time/CCT Total # of Minutes Spent Total Time Spent with Patient: Total time spent is greater than 50% in coordination of care (as documented) at patient's floor/unit and/or counseling patient: Coding Level of Care Code 12963 SUB INP/OBS CARE 2/35MIN Diagnoses Chest pain R07.9 Chest pain type: unspecified Suicidal ideation R45.851 Atrial fibrillation I48.91 Anxiety disorder, unspecified F41.9 HTN (hypertension) I10 Trauma and stressor-related disorder F43.9 Time Spent (min) 35 (1) Chest pain Chest pain type: unspecified Qualified Code(s): R07.9 - Chest pain, unspeci fied
[2022-10-17] MEDS ORDERED: amLODIPine BESYLATE 5 MG TAB PO ONE (15:30)
[2022-10-17] MEDS: QUEtiapine FUMARATE 300 MG TABLET PO SCH (21:18)
[2022-10-17] MEDS: APIXABAN 5 MG TABLET PO SCH (21:18)
--- NOTE | 2022-10-17 21:48 | Electrocardiogram Report ---
Test Reason : Blood Pressure : / mmHG Vent. Rate : 078 BPM Atrial Rate : 241 BPM P-R Int : 000 ms QRS Dur : 090 ms QT Int : 376 ms P-R-T Axes : 000 099 067 degrees QTc Int : 428 ms Atrial fibrillation Rightward axis Abnormal ECG No previous ECGs available Confirmed by Alejandro Ruvalcaba ([id number]) on 10/17/2022 9:48:40 PM Referred By: REFERRED SELF Confirmed By:Alejandro Ruvalcaba
[2022-10-18] MEDS: LACTATED RINGER'S 1,000 ML IV SCH ×2 (01:45→10:58)
[2022-10-18 08:00] LABS: BUN Creatinine Ratio 14.1 (10-20); Calcium 8.3 mg/dl (8.5-10.1); Creatinine Clr Calc Pharmacy 104.6 ml/min; Est GFR (African American) 112.1 ml/min; Est GFR (Non-African American) 96.7 ml/min; Potassium 3.6 mmol/L (3.5-5.1)
[2022-10-18] MEDS: amLODIPine BESYLATE 5 MG TAB PO SCH (09:16)
[2022-10-18] MEDS: PANTOprazole 40 MG TAB PO SCH (09:16)
[2022-10-18] MEDS: ESCITALOPRAM OXALATE 20 MG TAB PO SCH (09:16)
[2022-10-18] MEDS: APIXABAN 5 MG TABLET PO SCH ×2 (09:16→20:50)
--- NOTE | 2022-10-18 14:23 | Hospitalist Progress Note ---
Date of Service October 18, 2022 Assessment & Plan (1) Chest pain: Plan: Troponin and EKG do not suggest ischemic origin -Now resolved -Telemetry monitoring -Normal trops (2) Suicidal ideation: Plan: Patient reports persistent SI. -evaluated by Psych, deemed not a danger to self or society -Discontinue 1:1 sitter -Patient came from [place] to [place] to get better psych care -However, he is currently homeless and the shelters here are at capacity (3) Atrial fibrillation: Plan: Rate controlled. Uncertain which medications he takes -Monitor for now -Attempt to obtain additional medical information -Elevated [id number] score, will start Eliquis 5mg BID (4) Anxiety disorder, unspecified: Plan: evaluated by psych patient has a long history of unspecified anxiety disorder recently relocated from [place] for better psych facility mgt Will start Seroquel and escitalopram per Psych (5) HTN (hypertension): Plan: BP 142/100 Increase dose of amlodipine to 10mg (6) Trauma and stressor-related disorder: Plan F/E/N - Heart healthy diet as tolerated Ppx - Lovenox Code - Full Dispo -patient will need placement or snf, he is currently homeless Admission and Anticipated Discharge Date Admission Date: October 16, 2022 Subjective patient seen and examined, no new complaints Review of Systems Review of Systems: All systems reviewed are negative, apart from the ones contained in the history. Physical Exam Physical Exam: The patient is awake, alert and oriented 3, well developed and well nourished, normocephalic and atraumatic, lying in bed and in no acute distress. HEENT--PERRL, EOMI, mucous membranes and oropharynx mildly dry Neck--supple. No JVD. No bruits. Thyroid normal, trachea midline, no adenopathy. Heart--normal S1 and S2. No murmurs, rubs or gallops. Lungs--clear bilaterally, no respiratory distress, no accessory muscle use. Abdomen--normal bowel sounds and soft. Mild epigastric and left sided abdominal pain Extremities--no cyanosis or clubbing. No edema. Dermatologic--normal skin turgor, normal color, no abnormal lymph nodes, no rash. Neurologic--cranial nerves II through XII grossly intact. Rheumatologic--normal range of motion. Psychiatric--normal affect. Results & Data Results & Data ([facility]) Vital Signs (Past 12 Hours) Vital Signs Temp Pulse Pulse Resp BP BP Pulse Ox 10/18/22 11:02 98.1 F 83 19 142/100 H 97 10/18/22 07:34 97.5 F L 84 19 149/96 H 99 10/18/22 02:45 97.9 F 88 18 135/96 97 O2 Del Method 10/18/22 11:02 Room Air 10/18/22 07:34 Room Air 10/18/22 02:45 Room Air PG Care Time/CCT Total # of Minutes Spent Total Time Spent with Patient: Total time spent is greater than 50% in coordination of care (as documented) at patient's floor/unit and/or counseling patient: Coding Level of Care Code 04239 SUB INP/OBS CARE 2/35MIN Diagnoses Chest pain R07.9 Chest pain type: unspecified Suicidal ideation R45.851 Atrial fibrillation I48.91 Anxiety disorder, unspecified F41.9 HTN (hypertension) I10 Trauma and stressor-related disorder F43.9 Time Spent (min) 35 (1) Chest pain Chest pain type: unspecified Qualified Code(s): R07.9 - Chest pain, u nspecified
[2022-10-18] MEDS: QUEtiapine FUMARATE 300 MG TABLET PO SCH (20:50)
[2022-10-19] MEDS: PANTOprazole 40 MG TAB PO SCH (08:43)
[2022-10-19] MEDS: APIXABAN 5 MG TABLET PO SCH ×2 (08:43→20:23)
[2022-10-19] MEDS: ESCITALOPRAM OXALATE 20 MG TAB PO SCH (08:43)
[2022-10-19] MEDS: amLODIPine BESYLATE 5 MG TAB PO SCH (08:43)
--- NOTE | 2022-10-19 11:10 | Hospitalist Progress Note ---
Date of Service October 19, 2022 Assessment & Plan (1) Chest pain: Plan: Troponin and EKG do not suggest ischemic origin -Now resolved -Telemetry monitoring -Normal trops (2) Suicidal ideation: Plan: Patient reports persistent SI. -evaluated by Psych, deemed not a danger to self or society -Discontinue 1:1 sitter -Patient came from [place] to [place] to get better psych care -However, he is currently homeless and the shelters here are at capacity (3) Atrial fibrillation: Plan: Rate controlled. Uncertain which medications he takes -Monitor for now -Attempt to obtain additional medical information -Elevated [id number] score, will start Eliquis 5mg BID (4) Anxiety disorder, unspecified: Plan: evaluated by psych patient has a long history of unspecified anxiety disorder recently relocated from [place] for better psych facility mgt Will start Seroquel and escitalopram per Psych (5) HTN (hypertension): Plan: BP 142/100 Increase dose of amlodipine to 10mg (6) Trauma and stressor-related disorder: Plan F/E/N - Heart healthy diet as tolerated Ppx - Lovenox Code - Full Dispo -patient will need placement or residential, he is currently homeless and the shelters here are at capacity Admission and Anticipated Discharge Date Admission Date: October 18, 2022 Subjective patient seen and examined, no new complaints, he is homeless, no open shelters available Review of Systems Review of Systems: All systems reviewed are negative, apart from the ones contained in the history. Physical Exam Physical Exam: The patient is awake, alert and oriented 3, well developed and well nourished, normocephalic and atraumatic, lying in bed and in no acute distress. HEENT--PERRL, EOMI, mucous membranes and oropharynx mildly dry Neck--supple. No JVD. No bruits. Thyroid normal, trachea midline, no adenopathy. Heart--normal S1 and S2. No murmurs, rubs or gallops. Lungs--clear bilaterally, no respiratory distress, no accessory muscle use. Abdomen--normal bowel sounds and soft. Mild epigastric and left sided abdominal pain Extremities--no cyanosis or clubbing. No edema. Dermatologic--normal skin turgor, normal color, no abnormal lymph nodes, no rash. Neurologic--cranial nerves II through XII grossly intact. Rheumatologic--normal range of motion. Psychiatric--normal affect. Results & Data Results & Data ([facility]) Vital Signs (Past 12 Hours) Vital Signs Temp Pulse Pulse Resp BP Pulse Ox O2 Del Method 10/19/22 07:40 79 10/19/22 07:05 97.9 F 85 18 154/91 H 97 Room Air 10/19/22 02:38 97.9 F 78 18 148/85 H 94 Room Air 10/19/22 00:00 94 H PG Care Time/CCT Total # of Minutes Spent Total Time Spent with Patient: Total time spent is greater than 50% in coordination of care (as documented) at patient's floor/unit and/or counseling patient: Coding Level of Care Code 82853 SUB INP/OBS CARE 2/35MIN Diagnoses Chest pain R07.9 Chest pain type: unspecified Suicidal ideation R45.851 Atrial fibrillation I48.91 Anxiety disorder, unspecified F41.9 HTN (hypertension) I10 Trauma and stressor-related disorder F43.9 Time Spent (min) 35 (1) Chest pain Chest pain type: unspecified Qualified Code(s): R07.9 - Chest pain, unspecified
[2022-10-19 11:48] LABS: Marijuana Quant, GCMS Urine 522 ng/mL (<5)
[2022-10-19] MEDS: QUEtiapine FUMARATE 300 MG TABLET PO SCH (20:23)
[2022-10-20] MEDS: amLODIPine BESYLATE 5 MG TAB PO SCH (10:48)
[2022-10-20] MEDS: PANTOprazole 40 MG TAB PO SCH (10:49)
[2022-10-20] MEDS: ESCITALOPRAM OXALATE 20 MG TAB PO SCH (10:49)
[2022-10-20] MEDS: APIXABAN 5 MG TABLET PO SCH ×2 (10:49→20:00)
--- NOTE | 2022-10-20 11:13 | Hospitalist Progress Note ---
Date of Service October 20, 2022 Assessment & Plan (1) Chest pain: Plan: Troponin and EKG do not suggest ischemic origin -Now resolved -Telemetry monitoring -Normal trops (2) Suicidal ideation: Plan: Patient reported persistent SI. -evaluated by Psych, deemed not a danger to self or society -Discontinue 1:1 sitter -Patient came from [place] to [place] to get better psych care -However, he is currently homeless and the shelters here are at capacity -SW exploring options for jail (3) Atrial fibrillation: Plan: -Rate controlled. -On Eliquis -Will also add a small dose beta jackie (4) Anxiety disorder, unspecified: Plan: evaluated by psych patient has a long history of unspecified anxiety disorder recently relocated from [place] for better psych facility mgt Will start Seroquel and escitalopram per Psych (5) HTN (hypertension): Plan: BP 135/83 On amlodipine 10mg (6) Trauma and stressor-related disorder: Plan F/E/N - Heart healthy diet as tolerated Ppx - Lovenox Code - Full Dispo -patient will need placement or jail, he is currently homeless and the shelters here are at capacity Admission and Anticipated Discharge Date Admission Date: October 18, 2022 Subjective patient seen and examined, in no distress, no new complaints, still exploring options for jail Review of Systems Review of Systems: All systems reviewed are negative, apart from the ones contained in the history. Physical Exam Physical Exam: The patient is awake, alert and oriented 3, well developed and well nourished, normocephalic and atraumatic, lying in bed and in no acute distress. HEENT--PERRL, EOMI, mucous membranes and oropharynx mildly dry Neck--supple. No JVD. No bruits. Thyroid normal, trachea midline, no adenopathy. Heart--normal S1 and S2. No murmurs, rubs or gallops. Lungs--clear bilaterally, no respiratory distress, no accessory muscle use. Abdomen--normal bowel sounds and soft. Mild epigastric and left sided abdominal pain Extremities--no cyanosis or clubbing. No edema. Dermatologic--normal skin turgor, normal color, no abnormal lymph nodes, no rash. Neurologic--cranial nerves II through XII grossly intact. Rheumatologic--normal range of motion. Psychiatric--normal affect. Results & Data Results & Data ([facility]) Vital Signs (Past 12 Hours) Vital Signs Temp Pulse Pulse Resp BP Pulse Ox O2 Del Method 10/20/22 08:04 97.5 F L 89 19 135/83 99 Room Air 10/20/22 02:55 97.9 F 81 16 133/87 96 Room Air PG Care Time/CCT Total # of Minutes Spent Total Time Spent with Patient: Total time spent is greater than 50% in coordination of care (as documented) at patient's floor/unit and/or counseling patient: Coding Level of Care Code 88819 SUB INP/OBS CARE 2/35MIN Diagnoses Chest pain R07.9 Chest pain type: unspecified Suicidal ideation R45.851 Atrial fibrillation I48.91 Anxiety disorder, unspecified F41.9 HTN (hypertension) I10 Trauma and stressor-related disorder F43.9 Time Spent (min) 35 (1) Chest pain Chest pain type: unspecified Qualified Code(s): R07.9 - Chest pain, unspecified
[2022-10-20] MEDS: QUEtiapine FUMARATE 300 MG TABLET PO SCH (20:00)
[2022-10-20] MEDS: METOPROLOL TARTRATE 25 MG TAB PO SCH (20:00)
[2022-10-21] MEDS: APIXABAN 5 MG TABLET PO SCH (07:37)
[2022-10-21] MEDS: amLODIPine BESYLATE 5 MG TAB PO SCH (07:37)
[2022-10-21] MEDS: METOPROLOL TARTRATE 25 MG TAB PO SCH (07:37)
[2022-10-21] MEDS: PANTOprazole 40 MG TAB PO SCH (07:38)
[2022-10-21] MEDS: ESCITALOPRAM OXALATE 20 MG TAB PO SCH (07:38)
--- NOTE | 2022-10-21 14:05 | Discharge Summary ---
Date of Service October 21, 2022 Principal Diagnosis anxiety, afib Discharge Exam The patient is awake, alert and oriented 3, well developed and well nourished, normocephalic and atraumatic, lying in bed and in no acute distress. HEENT--PERRL, EOMI, mucous membranes and oropharynx mildly dry Neck--supple. No JVD. No bruits. Thyroid normal, trachea midline, no adenopathy. Heart--normal S1 and S2. No murmurs, rubs or gallops. Lungs--clear bilaterally, no respiratory distress, no accessory muscle use. Abdomen--normal bowel sounds and soft. Mild epigastric and left sided abdominal pain Extremities--no cyanosis or clubbing. No edema. Dermatologic--normal skin turgor, normal color, no abnormal lymph nodes, no rash. Neurologic--cranial nerves II through XII grossly intact. Rheumatologic--normal range of motion. Psychiatric--normal affect. Discharge Data Allergies Allergy/AdvReac Type Severity Reaction Status Date / Time No Known Allergies Allergy Unverified 10/17/22 02:22 Consultations 10/16/22 22:57 ED Decision to Admit Stat 10/17/22 03:18 Consult Psychiatry Routine Ordered Studies 10/16/22 20:23 CT head/brain wo con Stat Hospital Course (1) Chest pain: Troponin and EKG do not suggest ischemic origin -Now resolved -Telemetry monitoring -Normal trops (2) Suicidal ideation: Patient reported persistent SI. -evaluated by Psych, deemed not a danger to self or society -Discontinue 1:1 sitter -Patient came from [place] to [place] to get better psych care -However, he is currently homeless and the shelters here are at capacity -SW exploring options for care home -However, patient insisted he wanted discharged, that he found a walk in clinic that will accept him (3) Atrial fibrillation: -Rate controlled. -On Eliquis -Will also add a small dose beta jackie (4) Anxiety disorder, unspecified: evaluated by psych patient has a long history of unspecified anxiety disorder recently relocated from [place] for better psych facility mgt Will start Seroquel and escitalopram per Psych (5) HTN (hypertension): BP 135/92 On amlodipine 10mg (6) Trauma and stressor-related disorder: Plan F/E/N - Heart healthy diet as tolerated Ppx - Lovenox Code - Full Dispo -discharged to a walk in clinic Total Time Total Time Spent Total Time Spent (In Minutes): 35 Discharge Plan Discharge Items Patient Disposition: Home - Self-Care Reason For Visit: CHEST PAIN, SI Discharge Diagnosis: chest pain-resolved, Afib Activity: Resume your previous activity Non-emergency contact: Primary Care Provider and Psychiatrist Call non-emergency contact if: you have any medication questions and your symptoms worsen Follow-up/Referrals: PCP,NO [Primary Care Provider] - Diet: Regular Addtl Attending Provider Instructions: please follow up with the walk in clinic as you suggetsed Pending Studies at Discharge: No Stand-Alone Forms: My [employer], Smoking Cessation Medications and DC Order Prescriptions: New quetiapine 300 mg Tablet 300 mg PO HS 30 Days Qty: 30 0RF amlodipine [Norvasc] 5 mg Tablet 5 mg PO QAM 30 Days Qty: 30 0RF escitalopram oxalate 20 mg Tablet 20 mg PO QAM 30 Days Qty: 30 0RF metoprolol tartrate 25 mg Tablet 12.5 mg PO BID 30 Days Qty: 30 0RF Eliquis 5 mg Tablet 5 mg PO BID 30 Days Qty: 60 0RF Discharge Orders: Discharge Order (Routine); Ordered 10/21/22 Ordered By: Marcus Herrera Admission Data Admit Date/Time: 10/18/22 14:15 Attending Provider: Marcus Herrera Admit Provider: Amber Elliott Primary Care Provider: PCP,NO Other Providers: Amber Elliott ; Blossom Vanessa ; Henny Kwong Other Interventions: Discharge Summary Assessment (RN) Last Done: 10/21/22 12:25 Coding Level of Care Code HOSP INP/OBS DISCH >30 MIN Diagnoses Chest pain R07.9 Chest pain type: unspecified Suicidal ideation R45.851 Atrial fibrillation I48.91 Anxiety disorder, unspecified F41.9 HTN (hypertension) I10 Trauma and stressor-related disorder F43.9 Time Spent (min) 35
== END 2022-10-21 13:34 | disposition home or self-care (01) | DRG 309 ==
LOC: ED 19:53 → 2S 19:53 → SUATTDRO 23:25 → 2S 10-17 02:52
DX: R45.851 Suicidal ideations; I48.91 Unspecified atrial fibrillation; Z59.00 Homelessness unspecified; Z79.899 Other long term (current) drug therapy; F41.9 Anxiety disorder, unspecified; F17.200 Nicotine dependence, unspecified, uncomplicated; F43.9 Reaction to severe stress, unspecified; I10 Essential (primary) hypertension

== ENCOUNTER 2023-08-10 18:21 | Inpatient (IN) ==
[2023-08-10] MEDS ORDERED: SODIUM CHLORIDE 0.9% 1,000 ML IV SCH (18:30)
[2023-08-10] MEDS ORDERED: dilTIAZem HCl 5 MG/ML 5 ML VIAL IV STA (18:32)
[2023-08-10 18:58] LABS: Basophils # (auto) 0.02 K/uL (0.00-0.20); Basophils % (auto) 0.3 %; Eosinophils # (auto) 0.15 K/uL (0.00-0.50); Eosinophils % (auto) 2.4 %; Hematocrit (blood only) 38.8 % (42.0-52.0); Hemoglobin 13.2 g/dl (14.0-18.0); Immature Granulocytes # (auto) 0.02 K/uL (0.01-0.20); Immature Granulocytes % (auto) 0.3 %; Lymphocytes # (auto) 1.05 K/uL (1.20-3.40); Lymphocytes % (auto) 16.9 %; Mean Corpuscular Hemoglobin 33.4 pg (25.0-34.0); Mean Corpuscular Volume 98.2 fL (80.0-100.0); Mean Platelet Volume 10.1 fL (9.4-12.4); Monocytes # (auto) 0.67 K/uL (0.11-0.59); Monocytes % (auto) 10.8 %; Neutrophils % (auto) 69.3 %; Platelet Count 164 K/uL (130-400); RDW Coefficient of Variation 14.9 % (11.5-14.5); RDW Standard Deviation 54.4 fL (36.4-46.3); Red Blood Count 3.95 M/uL (4.70-6.10); White Blood Count 6.21 K/ul (4.8-10.8)
[2023-08-10 19:13] LABS: Albumin Globulin Ratio 1.1 (0.9-2); Albumin Level 3.9 gm/dl (3.4-5.0); BUN Creatinine Ratio 16.9 (10-20); Bilirubin,Total 0.7 mg/dl (0.2-1.0); Calcium 8.8 mg/dl (8.6-10.3); Creatinine Clr Calc Pharmacy 98.3 ml/min; Est GFR (African American) 109.3 ml/min; Est GFR (Non-African American) 94.3 ml/min; Globulin 3.7 gm/dl (2.5-4.0); Magnesium 1.7 mg/dl (1.7-2.4); Potassium 3.3 mmol/L (3.5-5.1); Total Protein 7.6 gm/dl (6.0-8.3)
[2023-08-10 19:18] LABS: Acetaminophen < 3 ug/ml (10-30); Salicylate < 3.0 mg/dl (3.0-30)
[2023-08-10 19:20] LABS: Troponin I High Sensitivity 14.7 pg/ml (0-20)
[2023-08-10 19:23] LABS: Appearance Urine Clear (Clear); Bacteria Urine Automated Negative (Negative); Bilirubin Urine Negative (Negative); Blood Urine Trace (Negative); Cast Urine Automated 0 /lpf (0-5); Color Urine Yellow; Epithelial Cell Urine Auto 0-5 /lpf (0-5); Glucose Urine UA Negative (Negative); Ketones Urine Negative (Negative); Leukocyte Esterase Urine Negative (Negative); Nitrite Urine Negative (Negative); Protein Urine 2+ (Negative); Specific Gravity Urine 1.014 (1.000-1.030); Urobilinogen Urine Negative (Negative)
--- NOTE | 2023-08-10 19:23 | XRay Report ---
XR chest 1V portable CLINICAL HISTORY: arrythmia TECHNIQUE: Single frontal radiograph of the chest was obtained. Comparison: Comparison is made to chest radiograph 07/14/2020 FINDINGS: Median sternotomy wires are unchanged. Cardiomegaly is noted. The aortic arch is calcified. The lungs are clear. No evidence of pleural effusion or pneumothorax. IMPRESSION: No acute chest disease. Cardiomegaly is noted. ACT 112: Negative or not required by law. Electronically signed by: Andrea Whitman M.D. 08/10/2023 7:22 PM
[2023-08-10 19:29] LABS: Thyroid Stimulating Hormone 2.476 uIu/ml (0.300-4.500)
[2023-08-10] MEDS ORDERED: STAT IV Infusion **Titration per Protocol STA (19:46)
[2023-08-10 19:54] LABS: INR 1.1 (0.9-1.1); Partial Thromboplastin Ratio 1.1; Partial Thromboplastin Time 30.6 Seconds (21.0-31.0); Prothrombin Time 12.1 Seconds (9.0-12.0)
[2023-08-10 19:58] LABS: Amphetamines+Metham, Urine Neg (Neg); Barbiturates, Urine Neg (Neg); Benzodiazepine, Urine Neg (Neg); Cocaine, Urine Neg (Neg); MDMA (Ecstacy), Urine Neg (Neg); Methadone, Urine Neg (Neg); Opiate, Urine Neg (Neg); Phencyclidine, Urine Neg (Neg)
[2023-08-10] MEDS ORDERED: dilTIAZem HCL 125 MG in DEXTROSE 5% 100 ML IV SCH (20:00)
--- NOTE | 2023-08-10 20:30 | CT Scan Report ---
Exam(s): CT HEAD Without Contrast EXAM: CT Head Without Intravenous Contrast CLINICAL HISTORY: Reason for exam: od. TECHNIQUE: Axial computed tomography images of the head/brain without intravenous contrast. CTDI is 35.22 mGy and DLP is 702.46 mGy-cm. Automated exposure control was utilized for the study. A dose lowering technique was utilized adhering to the principles of ALARA. COMPARISON: No relevant prior studies available. FINDINGS: No acute intracranial hemorrhage. No midline shift or mass effect. The territorial perea-white matter differentiation is maintained throughout. Age-related cerebral volume loss. Periventricular and subcortical white matter hypoattenuation, consistent with chronic microangiopathy. The visualized orbits appear grossly unremarkable. The calvarium is intact. The visualized paranasal sinuses and mastoid air cells are grossly clear. IMPRESSION: No acute intracranial hemorrhage, midline shift, or mass effect. Electronically signed by: Arturo Bennett MD 08/10/23 20:30 PM
--- NOTE | 2023-08-10 21:41 | History & Physical Report ---
Date of Service August 10, 2023 Assessment & Plan (1) Suicide attempt by drug overdose: Plan: Intentional overdose on 08/10 using Seroquel (reportedly 1800 mg) Patient is lethargic, snoring, and does not respond to questioning/waking on physical exam Patient is reportedly homeless 1:1 ordered Appreciate psychiatry consult Suicide precautions in place Safe tray with meals Tox screen: Positive for marijuana, negative for acetaminophen/salicylates/alcohol Head CT NAF CXR NAF Treatment for atypical antipsychotic overdose is primarily supportive Continue IVF resus; NSS with 20mEq K Monitor electrolytes daily; keep K>4, Mag>2 Magnesium sulfate 2g started in the ED A.m. CBC, BMP (2) Atrial fibrillation with RVR: Plan: EKG showed atrial fibrillation with RVR at 116 bpm; was 141bpm per EMS TSH WNL at 2.476 On Xarelto for anticoag; unknown when patient last took 1 dose of Lovenox 40 mg SQ ordered in the ED Continue Xarelto QPM Continue metoprolol Hold lisinopril Discontinue diltiazem drip Lopressor 5 mg IV q6h as needed for HR >110 Continuous telemetry monitoring (3) Hypokalemia: Plan: K 3.3 on arrival Krider 10mEq IV x 2 bags NSS with 20mEq to be given after Kriders Monitor with a.m. BMP (4) Depression: Plan: Hx of suicidal ideations Continue escitalopram (5) CAD, multiple vessel: (6) Bipolar disorder: (7) Anxiety disorder, unspecified: (8) GERD (gastroesophageal reflux disease): (9) HTN (hypertension): Plan Disposition: Admit to PCU telemetry Full code 1:1 precautions AHA diet, safe tray VTE PPx: Xarelto History of Present Illness Chief Complaint: Overdose (intentional) Primary Care Provider: DO Timmy Tse is a 62-year-old male with PMH of suicidal ideations, CAD s/p CABG x3, bipolar disorder, GERD, dyslipidemia, anxiety, depression, HTN, and A-fib. He presented via EMS following an intentional overdose at 1740 on 08/10 of Seroquel 1800 mg. Patient is somnolent, lethargic, snoring and does not respond to questioning. Hx of suicidal ideations; [facility] admssion 10/2022. Patient is reportedly homeless. EKG en route showed atrial fibrillation with RVR in the 140bpms. Patient exhibited tachycardia peaking at 143 bpm in the ED; other vitals stable at time of admission. ED course: Diltiazem 125 mg IV, IVF ROS: Unable to to obtain as patient is sleeping, unresponsive Please see Dr. Esquivel's attestation for any changes to treatment plan. Allergies Allergy/AdvReac Type Severity Reaction Status Date / Time haloperidol [From Haldol] AdvReac Intermediate muscle Verified 08/02/23 08:56 cramping Home Medications Medication Instructions Recorded Confirmed Type nitroglycerin 0.4 mg sublingual 0.4 mg sublingual Q5M PRN Chest 12/23/22 08/10/23 History tablet Pain Medical Marijuana 1 dose inhalation UD 02/02/23 08/10/23 History atorvastatin 40 mg tablet 40 mg PO QAM 07/11/23 08/10/23 History metoprolol tartrate 50 mg tablet 50 mg PO BID 90 days #60 tabs 07/17/23 08/10/23 Rx pantoprazole 40 mg tablet,delayed See Rx Instructions .Route 07/17/23 08/10/23 Rx release .COMPLEX #30 tabs quetiapine 300 mg tablet (Seroquel) 300 mg PO HS #30 tabs 07/17/23 08/10/23 Rx escitalopram oxalate 10 mg tablet 15 mg PO QAM 08/10/23 08/10/23 History lisinopril 10 mg tablet 10 mg PO QAM 08/10/23 08/10/23 History rivaroxaban 20 mg tablet (Xarelto) 20 mg PO QPM 08/10/23 08/10/23 History Past Med/Surg History Medical History Medical marijuana use Lives in homeless alf History of COVID-19 11/2022- home test done at homeless alf- no symptoms Seasonal allergies COPD (chronic obstructive pulmonary disease) Hx of myocardial infarction 2013 Poor historian Dyslipidemia Depression GERD (gastroesophageal reflux disease) Trauma and stressor-related disorder Anxiety disorder, unspecified HTN (hypertension) Atrial fibrillation managed w/ xarelto- unsure who cardio is Surgical History Hx of colonoscopy History of open reduction and internal fixation (ORIF) procedure elbow Hx of cardiac catheterization x2 stents - unsure when; sometime after 2014 in [place], [place] S/P CABG x 3 2014- unsure who cardio is- done in [place], [place] Family History Mother Cancer Myocardial infarction Ovarian cancer Father Prostate cancer Myocardial infarction Denies family history of Diabetes Breast cancer Lung cancer Colorectal cancer Stroke Social History Smoking Status: Current every day smoker Tobacco Type: Cigarettes packs per day: 1; Cigarettes Per Day: 20; Second Hand Exposure: Yes; Do You Dip or Chew Tobacco: No; Tobacco Cessation Education Requested by Patient: No Hx Alcohol Use: No Hx Substance Use: Yes Prescribed Medications: Marijuana Last Used Substance: Unknown Substance Use Type Other:: medical marijuana Preferred Language: Sammarinese Communication Ability: Effective Visual Impairment: Diminished Hearing Ability: Normal Garland Maker Required: No Beliefs That Will Affect Care: None marital status: Single Current Living Situation: Other Current Living Situation Comment: out of the cold current occupational status: disabled How many Children do You have: 0 Other Information That Helps Us Care for You: No Feels Safe at Home: Yes Safety Concerns: Feels Safe At This Time Childhood Exposure to Second-Hand Smoke: Yes caffeine: Yes Dental Care, Regularly: No Physical Activity Frequency: Daily Seatbelt Use: always Sunscreen Use: Yes Assistive Devices: Denture - Upper, Denture - Lower and Glasses Review of Systems Review of Systems: See HPI above Physical Exam Physical Exam: General: Patient sleeping; unresponsive to questioning; does not open eyes; snoring; no acute distress; 90 bpm in a fib during exam; 100% SPO2 on RA HEENT: normocephalic, atraumatic; dry mucus membrane Neck: supple; no lymphadenopathy; trachea midline Skin: warm, dry without signs of tenting; no cyanosis CV: chest wall NTP; irregularly irregular rhythm; S1/S2 normal; no murmurs/rubs/gallops; pulses intact and symmetric at radial, DP, and PT Lungs: no acute respiratory distress; symmetrical chest wall expansion; clear breath sounds across all lung black w/o adventitious sounds; no wheezing ABD: Soft, NTP; BS present; no rebound/guarding; no distention MSK: no tics or fasciculations; no edema noted in the LEs b/l Neuro: Unable to assess orientation; lethargic; somnolent; unresponsive to questioning Results & Data Results & Data Vital Signs (Past 12 Hours) Vital Signs Temp Pulse Pulse Resp BP BP Pulse Ox 08/10/23 21:10 121 H 15 155/90 H 99 08/10/23 21:00 107 H 27 H 98 08/10/23 20:45 97 H 20 100 08/10/23 20:30 112 H 18 98 08/10/23 20:17 121/88 08/10/23 20:17 122 H 18 100 08/10/23 20:16 98 08/10/23 19:45 110 H 18 96 08/10/23 19:30 116/86 08/10/23 19:30 118 H 19 96 08/10/23 19:15 130 H 18 97 08/10/23 19:13 102 H 16 109/65 100 08/10/23 19:12 143 H 19 98 08/10/23 19:12 109/65 08/10/23 19:00 100 H 12 99 08/10/23 19:00 98/67 L 08/10/23 18:53 108 H 16 107/78 99 08/10/23 18:52 117 H 18 99 08/10/23 18:52 107/78 08/10/23 18:45 105 H 19 94 08/10/23 18:42 112 H 12 96/75 L 97 08/10/23 18:41 98 H 14 94 08/10/23 18:41 96/75 L 08/10/23 18:30 105/72 08/10/23 18:30 124 H 15 95 08/10/23 18:27 138 H 16 96 08/10/23 18:26 129 H 21 95 08/10/23 18:25 119/78 08/10/23 18:25 116 H 08/10/23 18:21 36.6 C 132 H 18 119/78 95 O2 Del Method 08/10/23 21:10 08/10/23 21:00 08/10/23 20:45 08/10/23 20:30 08/10/23 20:17 08/10/23 20:17 08/10/23 20:16 08/10/23 19:45 08/10/23 19:30 08/10/23 19:30 08/10/23 19:15 08/10/23 19:13 Room Air 08/10/23 19:12 08/10/23 19:12 08/10/23 19:00 08/10/23 19:00 08/10/23 18:53 Room Air 08/10/23 18:52 08/10/23 18:52 08/10/23 18:45 08/10/23 18:42 08/10/23 18:41 08/10/23 18:41 08/10/23 18:30 08/10/23 18:30 08/10/23 18:27 Room Air 08/10/23 18:26 08/10/23 18:25 08/10/23 18:25 08/10/23 18:21 Room Air Laboratory Results Abnormal lab results 08/10/23 08/10/23 08/10/23 Range/Units 18:31 19:10 Unknown RBC 3.95 L (4.70-6.10) M/uL Hgb 13.2 L (14.0-18.0) g/dl Hct 38.8 L (42.0-52.0) % RDW Std Deviation 54.4 H (36.4-46.3) fL RDW Coeff of Spencer 14.9 H (11.5-14.5) % Lymph # (Auto) 1.05 L (1.20-3.40) K/uL [place] # (Auto) 0.67 H (0.11-0.59) K/uL PT 12.1 H (9.0-12.0) Seconds Potassium 3.3 L (3.5-5.1) mmol/L Glucose 112 H (70-99(Fasting)) mg/dl Urine Protein 2+ H (Negative) Urine Blood Trace H (Negative) Urine RBC (Auto) 5-10 H (0-4) /hpf Salicylates < 3.0 L (3.0-30) mg/dl Acetaminophen < 3 L (10-30) ug/ml U Marijuana (THC) Screen Pos H (Neg) Diagnostic Findings Head CT 08/10/23 18:26 Exam(s): CT HEAD Without Contrast EXAM: CT Head Without Intravenous Contrast CLINICAL HISTORY: Reason for exam: od. TECHNIQUE: Axial computed tomography images of the head/brain without intravenous contrast. CTDI is 35.22 mGy and DLP is 702.46 mGy-cm. Automated exposure control was utilized for the study. A dose lowering technique was utilized adhering to the principles of ALARA. COMPARISON: No relevant prior studies available. FINDINGS: No acute intracranial hemorrhage. No midline shift or mass effect. The territorial perea-white matter differentiation is maintained throughout. Age-related cerebral volume loss. Periventricular and subcortical white matter hypoattenuation, consistent with chronic microangiopathy. The visualized orbits appear grossly unremarkable. The calvarium is intact. The visualized paranasal sinuses and mastoid air cells are grossly clear. IMPRESSION: No acute intracranial hemorrhage, midline shift, or mass effect. Electronically signed by: Arturo Bennett MD 08/10/23 20:30 PM Chest X-Ray 08/10/23 18:27 XR chest 1V portable CLINICAL HISTORY: arrythmia TECHNIQUE: Single frontal radiograph of the chest was obtained. Comparison: Comparison is made to chest radiograph 07/14/2020 FINDINGS: Median sternotomy wires are unchanged. Cardiomegaly is noted. The aortic arch is calcified. The lungs are clear. No evidence of pleural effusion or pneumothorax. IMPRESSION: No acute chest disease. Cardiomegaly is noted. ACT 112: Negative or not required by law. Electronically signed by: Andrea Whitman M.D. 08/10/2023 7:22 PM Code Status & VTE Plan Code Status Full code VTE Prophylaxis Plan VTE Prophylaxis will be ordered: Yes Supervising Physician Co-Signing Physician Notes Attending addendum: I have physically seen this patient, have supervised the ERIC's activities, and agree with the H&P unless as otherwise noted. Assessment and Plan: Suicide attempt/intentional drug overdose- Patient reportedly took a total of 1800 mg of Seroquel Patient is lethargic and unresponsive One-to-one observation ordered Suicide precautions Consult psychiatry Urine drug screen positive for marijuana, negative for acetaminophen, salicylates and alcohol CT head negative Chest x-ray negative Placed on IV fluids normal saline with 20 mEq of potassium at 80 mils per hour x1 L Atrial fibrillation with RVR/hypertension- The patient will be admitted to telemetry for serial cardiac enzymes, serial EKG's, cardiac rhythm monitoring and a 2-D echocardiogram with Dopplers. Hold oral medications until patient is more alert Lovenox 80 mg subcu therapeutic dose this evening, and will hopefully be able to resume Xarelto in the morning Lopressor 5 mg IV every 6 hours as needed for heart rate greater than 110 Discontinue diltiazem drip Continue metoprolol and lisinopril when patient is more responsive Electrolyte disturbances/hypokalemia/hypomagnesemia- Potassium 3.3 on admission Magnesium 1.7 on admission Give potassium chloride 10 mEq IV riders x2 Give magnesium sulfate 1 g IV Recheck laboratories in a.m. PG Care Time/CCT Total # of Minutes Spent Total Time Spent with Patient: Total time spent is greater than 50% in coordination of care (as documented) at patient's floor/unit and/or counseling patient: Coding [place] [address] INT INP/OBS CARE 3/75MIN Patient Type Established Medical Decision Making Moderate Complexity Diagnoses Suicide attempt by drug overdose T50.902A Atrial fibrillation with RVR I48.91 Hypokalemia E87.6 Depression F32.A CAD, multiple vessel I25.10 Bipolar disorder F31.9 Anxiety disorder, unspecified F41.9 GERD (gastroesophageal reflux disease) K21.9 HTN (hypertension) I10
[2023-08-10] MEDS ORDERED: ENOXAPARIN INJ 40 MG/0.4 ML SYR SQ ONE (23:00)
[2023-08-10] MEDS ORDERED: ENOXAPARIN 80 MG/0.8 ML SYR SQ ONE (23:12)
--- NOTE | 2023-08-10 23:32 | Emergency Department Note ---
History of Present Illness General Chief complaint: Overdose (Intentional) Stated complaint: OVERDOSE Time Seen by Provider: 08/10/23 18:24 History of Present Illness Provider complaint: Overdose 62-year-old male presents emergency department for intentional overdose. Patient states "his life sucks" and he wants to . Patient states that at 1740 he attempted to take 6 tablets of his 300 mg Seroquel. EMS confirms this. EMS brought the patient's medications and there are multiple medications in a pillbox that are not labeled. Home Medications Medication Instructions Recorded Confirmed Type nitroglycerin 0.4 mg sublingual 0.4 mg sublingual Q5M PRN Chest 12/23/22 08/10/23 History tablet Pain Medical Marijuana 1 dose inhalation UD 02/02/23 08/10/23 History atorvastatin 40 mg tablet 40 mg PO QAM 07/11/23 08/10/23 History metoprolol tartrate 50 mg tablet 50 mg PO BID 90 days #60 tabs 07/17/23 08/10/23 Rx pantoprazole 40 mg tablet,delayed See Rx Instructions .Route 07/17/23 08/10/23 Rx release .COMPLEX #30 tabs quetiapine 300 mg tablet (Seroquel) 300 mg PO HS #30 tabs 07/17/23 08/10/23 Rx escitalopram oxalate 10 mg tablet 15 mg PO QAM 08/10/23 08/10/23 History lisinopril 10 mg tablet 10 mg PO QAM 08/10/23 08/10/23 History rivaroxaban 20 mg tablet (Xarelto) 20 mg PO QPM 08/10/23 08/10/23 History Allergies Allergy/AdvReac Type Severity Reaction Status Date / Time haloperidol [From Haldol] AdvReac Intermediate muscle Verified 08/02/23 08:56 cramping Past Med/Surg History Medical History Medical marijuana use Lives in homeless half-way History of COVID-19 11/2022- home test done at homeless half-way- no symptoms Seasonal allergies COPD (chronic obstructive pulmonary disease) Hx of myocardial infarction 2013 Poor historian Dyslipidemia Depression GERD (gastroesophageal reflux disease) Trauma and stressor-related disorder Anxiety disorder, unspecified HTN (hypertension) Atrial fibrillation managed w/ xarelto- unsure who cardio is Surgical History Hx of colonoscopy History of open reduction and internal fixation (ORIF) procedure elbow Hx of cardiac catheterization x2 stents - unsure when; sometime after 2013 in [place], [place] S/P CABG x 3 2014- unsure who cardio is- done in [place], [place] Family History Mother Cancer Myocardial infarction Ovarian cancer Father Prostate cancer Myocardial infarction Denies family history of Diabetes Breast cancer Lung cancer Colorectal cancer Stroke Social History Smoking Status: Unknown if ever smoked Tobacco Type: Cigarettes packs per day: 1; Cigarettes Per Day: 40; Second Hand Exposure: No; Do You Dip or Chew Tobacco: No; Hx Alcohol Use: No Hx Substance Use: Yes Prescribed Medications: Marijuana Last Used Substance: Unknown Substance Use Type Other:: med marijuana- vape daily-advised Preferred Language: Danish Communication Ability: Effective Visual Impairment: Diminished Hearing Ability: Normal Oyster Culler Required: No Beliefs That Will Affect Care: None marital status: Single Current Living Situation: Homeless Current Living Situation Comment: currently living at a half-way current occupational status: disabled How many Children do You have: 0 Feels Safe at Home: Yes Childhood Exposure to Second-Hand Smoke: Yes caffeine: Yes Dental Care, Regularly: No Physical Activity Frequency: Daily Seatbelt Use: always Sunscreen Use: Yes Assistive Devices: Denture - Upper, Denture - Lower and Glasses Physical Exam Vital Signs Vital Signs - 24 hr 08/10/23 18:21 08/10/23 18:25 08/10/23 18:25 Temperature 36.6 C Temperature Source Rectal Pulse Rate 132 H 116 H Pulse Rate [Right Finger] Pulse Rate from SpO2 Sensor Respiratory Rate 18 Respiratory Effort / Characteristics Non-Labored Blood Pressure 119/78 119/78 Blood Pressure [Right Arm] Blood Pressure Mean 91 90 Blood Pressure Mean [Right Arm] Pulse Oximetry 95 Oxygen Delivery Method Room Air Sepsis Recent Fever Within 48 Hours No Sepsis New/Unexplained Change in Mental Status N/A Sepsis Action Taken by Nursing No Action Required 08/10/23 18:26 08/10/23 18:27 08/10/23 18:30 Temperature Temperature Source Pulse Rate 129 H 138 H 124 H Pulse Rate [Right Finger] Pulse Rate from SpO2 Sensor 119 H 122 H Respiratory Rate 21 16 15 Respiratory Effort / Characteristics Blood Pressure Blood Pressure [Right Arm] Blood Pressure Mean Blood Pressure Mean [Right Arm] Pulse Oximetry 95 96 95 Oxygen Delivery Method Room Air Sepsis Recent Fever Within 48 Hours Sepsis New/Unexplained Change in Mental Status Sepsis Action Taken by Nursing 08/10/23 18:30 08/10/23 18:41 08/10/23 18:41 Temperature Temperature Source Pulse Rate 98 H Pulse Rate [Right Finger] Pulse Rate from SpO2 Sensor 107 H Respiratory Rate 14 Respiratory Effort / Characteristics Blood Pressure 105/72 96/75 L Blood Pressure [Right Arm] Blood Pressure Mean 78 81 Blood Pressure Mean [Right Arm] Pulse Oximetry 94 Oxygen Delivery Method Sepsis Recent Fever Within 48 Hours Sepsis New/Unexplained Change in Mental Status Sepsis Action Taken by Nursing 08/10/23 18:42 08/10/23 18:45 08/10/23 18:52 Temperature Temperature Source Pulse Rate 105 H Pulse Rate [Right Finger] 112 H Pulse Rate from SpO2 Sensor 102 H Respiratory Rate 12 19 Respiratory Effort / Characteristics Blood Pressure 107/78 Blood Pressure [Right Arm] 96/75 L Blood Pressure Mean 94 Blood Pressure Mean [Right Arm] 82 Pulse Oximetry 97 94 Oxygen Delivery Method Sepsis Recent Fever Within 48 Hours Sepsis New/Unexplained Change in Mental Status Sepsis Action Taken by Nursing 08/10/23 18:52 08/10/23 18:53 08/10/23 19:00 Temperature Temperature Source Pulse Rate 117 H Pulse Rate [Right Finger] 108 H Pulse Rate from SpO2 Sensor 109 H Respiratory Rate 18 16 Respiratory Effort / Characteristics Non-Labored Blood Pressure 98/67 L Blood Pressure [Right Arm] 107/78 Blood Pressure Mean 80 Blood Pressure Mean [Right Arm] 87 Pulse Oximetry 99 99 Oxygen Delivery Method Room Air Sepsis Recent Fever Within 48 Hours Sepsis New/Unexplained Change in Mental Status Sepsis Action Taken by Nursing 08/10/23 19:00 08/10/23 19:12 08/10/23 19:12 Temperature Temperature Source Pulse Rate 100 H 143 H Pulse Rate [Right Finger] Pulse Rate from SpO2 Sensor 104 H 129 H Respiratory Rate 12 19 Respiratory Effort / Characteristics Blood Pressure 109/65 Blood Pressure [Right Arm] Blood Pressure Mean 87 Blood Pressure Mean [Right Arm] Pulse Oximetry 99 98 Oxygen Delivery Method Sepsis Recent Fever Within 48 Hours Sepsis New/Unexplained Change in Mental Status Sepsis Action Taken by Nursing 08/10/23 19:13 08/10/23 19:15 08/10/23 19:30 Temperature Temperature Source Pulse Rate 130 H 118 H Pulse Rate [Right Finger] 102 H Pulse Rate from SpO2 Sensor 117 H 131 H Respiratory Rate 16 18 19 Respiratory Effort / Characteristics Blood Pressure Blood Pressure [Right Arm] 109/65 Blood Pressure Mean Blood Pressure Mean [Right Arm] 79 Pulse Oximetry 100 97 96 Oxygen Delivery Method Room Air Sepsis Recent Fever Within 48 Hours Sepsis New/Unexplained Change in Mental Status Sepsis Action Taken by Nursing 08/10/23 19:30 08/10/23 19:45 08/10/23 20:16 Temperature Temperature Source Pulse Rate 110 H Pulse Rate [Right Finger] Pulse Rate from SpO2 Sensor 114 H 143 H Respiratory Rate 18 Respiratory Effort / Characteristics Blood Pressure 116/86 Blood Pressure [Right Arm] Blood Pressure Mean 101 Blood Pressure Mean [Right Arm] Pulse Oximetry 96 98 Oxygen Delivery Method Sepsis Recent Fever Within 48 Hours Sepsis New/Unexplained Change in Mental Status Sepsis Action Taken by Nursing 08/10/23 20:17 08/10/23 20:17 08/10/23 20:30 Temperature Temperature Source Pulse Rate 122 H 112 H Pulse Rate [Right Finger] Pulse Rate from SpO2 Sensor 124 H 102 H Respiratory Rate 18 18 Respiratory Effort / Characteristics Blood Pressure 121/88 Blood Pressure [Right Arm] Blood Pressure Mean 106 Blood Pressure Mean [Right Arm] Pulse Oximetry 100 98 Oxygen Delivery Method Sepsis Recent Fever Within 48 Hours Sepsis New/Unexplained Change in Mental Status Sepsis Action Taken by Nursing 08/10/23 20:45 08/10/23 21:00 08/10/23 21:10 Temperature Temperature Source Pulse Rate 97 H 107 H 121 H Pulse Rate [Right Finger] Pulse Rate from SpO2 Sensor 101 H 104 H 116 H Respiratory Rate 20 27 H 15 Respiratory Effort / Characteristics Blood Pressure 155/90 H Blood Pressure [Right Arm] Blood Pressure Mean 111 Blood Pressure Mean [Right Arm] Pulse Oximetry 100 98 99 Oxygen Delivery Method Sepsis Recent Fever Within 48 Hours Sepsis New/Unexplained Change in Mental Status Sepsis Action Taken by Nursing 08/10/23 21:15 08/10/23 21:30 08/10/23 21:45 Temperature Temperature Source Pulse Rate 101 H 100 H Pulse Rate [Right Finger] 90 Pulse Rate from SpO2 Sensor 92 H 97 H Respiratory Rate 16 17 22 Respiratory Effort / Characteristics Blood Pressure Blood Pressure [Right Arm] 106/79 Blood Pressure Mean Blood Pressure Mean [Right Arm] 88 Pulse Oximetry 98 95 95 Oxygen Delivery Method Sepsis Recent Fever Within 48 Hours Sepsis New/Unexplained Change in Mental Status Sepsis Action Taken by Nursing 08/10/23 21:45 08/10/23 22:00 08/10/23 22:15 Temperature Temperature Source Pulse Rate 93 H 94 H 87 Pulse Rate [Right Finger] Pulse Rate from SpO2 Sensor 92 H 93 H 90 Respiratory Rate 16 19 13 Respiratory Effort / Characteristics Blood Pressure 106/79 124/78 Blood Pressure [Right Arm] Blood Pressure Mean 88 93 Blood Pressure Mean [Right Arm] Pulse Oximetry 94 98 98 Oxygen Delivery Method Sepsis Recent Fever Within 48 Hours Sepsis New/Unexplained Change in Mental Status Sepsis Action Taken by Nursing 08/10/23 22:22 08/10/23 23:00 Temperature Temperature Source Pulse Rate 81 95 H Pulse Rate [Right Finger] Pulse Rate from SpO2 Sensor 91 H Respiratory Rate 16 Respiratory Effort / Characteristics Blood Pressure 125/82 Blood Pressure [Right Arm] Blood Pressure Mean 96 Blood Pressure Mean [Right Arm] Pulse Oximetry 96 Oxygen Delivery Method Room Air Sepsis Recent Fever Within 48 Hours Sepsis New/Unexplained Change in Mental Status Sepsis Action Taken by Nursing Physical Exam HENT: Exam performed. - Head: Normocephalic and atraumatic. EYES: Conjunctivae and EOM are normal. Pupils are equal, round, and reactive to light. Right eye exhibits no discharge. Left eye exhibits no discharge. No scleral icterus. NECK: Normal range of motion. Neck supple. No JVD present. CV: Tachycardic rate rate, irregular rhythm, normal heart sounds and intact distal pulses. There is no peripheral edema. Palpable radial pulses bue. PULM/CHEST: Effort normal and breath sounds normal. No respiratory distress. No stridor. He has no wheezes. He has no rales. ABD: The abdomen is soft. MUSC/SKEL: Normal range of motion. There is no peripheral edema, tenderness or deformity. LYMPH: No cervical adenopathy. NEURO: He is alert and oriented to person, place, and time. He has normal strength. GCS eye subscore is 3. GCS verbal subscore is 5. GCS motor subscore is 6. Cerebellar tests wnl. PSYCH: Bizarre affect depression suicidal ideation. Course Course 182: The patient was evaluated in room A4. A complete history and physical exam was performed Cardiac monitoring: An order was placed for continuous cardiac monitoring. The monitor shows a rate of 130-150 with atrial fibrilation rhythm interpreted by me 183: Spoke with Alana from poison control. Metoprolol is listed in the patient's home medications. Will avoid metoprolol at the advice of poison control in case there is any coingestions with that although unlikely given the patient's A-fib RVR. Will give Cardizem to control ventricular rate, small dose given 10 mg. Care and poison control is in agreement with Robertam. 1844: Status post Cardizem 10 mg IV push the patient's ventricular rate improved. 1999: Nursing informs me that the patient ventricular rate is going up into the 130s. Patient was started on Cardizem drip. 2134: Vital signs stable on Cardizem drip. Patient labs and imaging are within normal limits. [facility] and intentional overdose. Dr. Mackenzie's team notified. Administered Medications Discontinued Medications Diltiazem HCl (Diltiazem Hcl 5 Mg/Ml 5 Ml Vial) 10 mg IV NOW STA Stop: 08/10/23 18:33 Last Admin: 08/10/23 18:36 Dose: 10 mg Documented By: SHIRA Co-signed By: CAMMIE Enoxaparin Sodium (Enoxaparin Inj 40 Mg/0.4 Ml Syr) 40 mg SQ NOW ONE Stop: 08/10/23 23:01 Last Admin: 08/10/23 23:15 Dose: Not Given Documented By: LILY Sodium Chloride (Nss) 1,000 mls @ 999 mls/hr IV .Q1H1M [facility] Stop: 08/10/23 19:30 Last Infusion: 08/10/23 19:48 Dose: Infused Documented By: Admin: 08/10/23 18:41 Dose: 999 mls/hr Documented By: SHIRA Diltiazem HCl 125 mg/ Dextrose 125 mls @ 5 mls/hr IV .Q24H [facility]; Protocol Stop: 09/09/23 19:59 Last Admin: 08/10/23 20:18 Dose: 5 mg/hr, 5 mls/hr Documented By: YANETH Co-signed By: SELINA Miscellaneous (Stat Iv Infusion Titration Per Protocol) 1 each N/A NOW STA Stop: 08/10/23 19:47 Last Admin: 08/10/23 21:11 Dose: Not Given Documented By: ROBERT Critical Care Time Critical Care Time: Yes Total Critical Care Time: 62 I have personally spent greater than 62 minutes of critical care time in the direct management of this patient. This includes bedside care, interpretation of diagnostic studies, and testing, discussion with consultants, patient, and family members, and other required patient management activities. This 62 minutes is in excess of all separately billable procedures. Medical Decision Making Laboratory Data Attestation: I reviewed the patient's lab results. 08/10/23 18:31 08/10/23 18:31 Lab Results 08/10/23 08/10/23 08/10/23 Range/Units 18:31 19:10 19:12 WBC 6.21 (4.8-10.8) K/ul RBC 3.95 L (4.70-6.10) M/uL Hgb 13.2 L (14.0-18.0) g/dl Hct 38.8 L (42.0-52.0) % MCV 98.2 (80.0-100.0) fL MCH 33.4 (25.0-34.0) pg MCHC 34.0 (32.0-36.0) g/dL RDW Std Deviation 54.4 H (36.4-46.3) fL RDW Coeff of Spencer 14.9 H (11.5-14.5) % Plt Count 164 (130-400) K/uL MPV 10.1 (9.4-12.4) fL Immature Gran % (Auto) 0.3 % Neut % (Auto) 69.3 % Lymph % (Auto) 16.9 % [place] % (Auto) 10.8 % Eos % (Auto) 2.4 % Baso % (Auto) 0.3 % Neut # (Auto) 4.30 (1.40-6.50) K/uL Lymph # (Auto) 1.05 L (1.20-3.40) K/uL [place] # (Auto) 0.67 H (0.11-0.59) K/uL Eos # (Auto) 0.15 (0.00-0.50) K/uL Baso # (Auto) 0.02 (0.00-0.20) K/uL Immature Gran # (Auto) 0.02 (0.01-0.20) K/uL PT 12.1 H (9.0-12.0) Seconds INR 1.1 (0.9-1.1) APTT 30.6 (21.0-31.0) Seconds PTT Ratio 1.1 Sodium 137 (136-145) mmol/L Potassium 3.3 L (3.5-5.1) mmol/L Chloride 106 (98-107) mmol/L Carbon Dioxide 23 (21-32) mmol/L Anion Gap 8 (3-11) BUN 14 (6-23) mg/dl Creatinine 0.83 (0.6-1.4) mg/dl Est Cr Clr Drug Dosing 98.3 ml/min Est GFR ( Amer) 109.3 ml/min Est GFR (Non-Af Amer) 94.3 ml/min BUN/Creatinine Ratio 16.9 (10-20) Glucose 112 H (70-99(Fasting)) mg/dl Calcium 8.8 (8.6-10.3) mg/dl Magnesium 1.7 (1.7-2.4) mg/dl Total Bilirubin 0.7 (0.2-1.0) mg/dl AST 23 (13-39) U/L ALT 19 (7-52) U/L Alkaline Phosphatase 83 (34-104) U/L Troponin I High Sens 14.7 (0-20) pg/ml Total Protein 7.6 (6.0-8.3) gm/dl Albumin 3.9 (3.4-5.0) gm/dl Globulin 3.7 (2.5-4.0) gm/dl Albumin/Globulin Ratio 1.1 (0.9-2) TSH 2.476 (0.300-4.500) uIu/ml Urine Color Yellow Urine Appearance Clear (Clear) Urine pH 7.0 (4.5-7.5) Ur Specific [place] 1.014 (1.000-1.030) Urine Protein 2+ H (Negative) Urine Glucose (UA) Negative (Negative) Urine Ketones Negative (Negative) Urine Blood Trace H (Negative) Urine Nitrite Negative (Negative) Urine Bilirubin Negative (Negative) Urine Urobilinogen Negative (Negative) Ur Leukocyte Esterase Negative (Negative) Urine WBC (Auto) 1-5 (0-5) /hpf Urine RBC (Auto) 5-10 H (0-4) /hpf U Hyaline Cast (Auto) 0 (0-5) /lpf U Epithel Cells (Auto) 0-5 (0-5) /lpf Urine Bacteria (Auto) Negative (Negative) Salicylates < 3.0 L (3.0-30) mg/dl Urine Opiates Screen (Neg) Ur Methadone, Qual (Neg) Acetaminophen < 3 L (10-30) ug/ml Urine Barbiturates (Neg) Ur Phencyclidine (PCP) (Neg) U Amphetamin/Meth Scrn (Neg) MDMA (Ecstasy) Screen (Neg) U Benzodiazepines Scrn (Neg) Ur Cocaine Metabolite (Neg) U Marijuana (THC) Screen (Neg) Ethyl Alcohol mg/dL < 10.0 (<10.0) mg/dl SARS-CoV-2, RNA, NAAT NEGATIVE (NEGATIVE) 08/10/23 Range/Units Unknown WBC (4.8-10.8) K/ul RBC (4.70-6.10) M/uL Hgb (14.0-18.0) g/dl Hct (42.0-52.0) % MCV (80.0-100.0) fL MCH (25.0-34.0) pg MCHC (32.0-36.0) g/dL RDW Std Deviation (36.4-46.3) fL RDW Coeff of Spencer (11.5-14.5) % Plt Count (130-400) K/uL MPV (9.4-12.4) fL Immature Gran % (Auto) % Neut % (Auto) % Lymph % (Auto) % [place] % (Auto) % Eos % (Auto) % Baso % (Auto) % Neut # (Auto) (1.40-6.50) K/uL Lymph # (Auto) (1.20-3.40) K/uL [place] # (Auto) (0.11-0.59) K/uL Eos # (Auto) (0.00-0.50) K/uL Baso # (Auto) (0.00-0.20) K/uL Immature Gran # (Auto) (0.01-0.20) K/uL PT (9.0-12.0) Seconds INR (0.9-1.1) APTT (21.0-31.0) Seconds PTT Ratio Sodium (136-145) mmol/L Potassium (3.5-5.1) mmol/L Chloride (98-107) mmol/L Carbon Dioxide (21-32) mmol/L Anion Gap (3-11) BUN (6-23) mg/dl Creatinine (0.6-1.4) mg/dl Est Cr Clr Drug Dosing ml/min Est GFR ( Amer) ml/min Est GFR (Non-Af Amer) ml/min BUN/Creatinine Ratio (10-20) Glucose (70-99(Fasting)) mg/dl Calcium (8.6-10.3) mg/dl Magnesium (1.7-2.4) mg/dl Total Bilirubin (0.2-1.0) mg/dl AST (13-39) U/L ALT (7-52) U/L Alkaline Phosphatase (34-104) U/L Troponin I High Sens (0-20) pg/ml Total Protein (6.0-8.3) gm/dl Albumin (3.4-5.0) gm/dl Globulin (2.5-4.0) gm/dl Albumin/Globulin Ratio (0.9-2) TSH (0.300-4.500) uIu/ml Urine Color Urine Appearance (Clear) Urine pH (4.5-7.5) Ur Specific [place] (1.000-1.030) Urine Protein (Negative) Urine Glucose (UA) (Negative) Urine Ketones (Negative) Urine Blood (Negative) Urine Nitrite (Negative) Urine Bilirubin (Negative) Urine Urobilinogen (Negative) Ur Leukocyte Esterase (Negative) Urine WBC (Auto) (0-5) /hpf Urine RBC (Auto) (0-4) /hpf U Hyaline Cast (Auto) (0-5) /lpf U Epithel Cells (Auto) (0-5) /lpf Urine Bacteria (Auto) (Negative) Salicylates (3.0-30) mg/dl Urine Opiates Screen Neg (Neg) Ur Methadone, Qual Neg (Neg) Acetaminophen (10-30) ug/ml Urine Barbiturates Neg (Neg) Ur Phencyclidine (PCP) Neg (Neg) U Amphetamin/Meth Scrn Neg (Neg) MDMA (Ecstasy) Screen Neg (Neg) U Benzodiazepines Scrn Neg (Neg) Ur Cocaine Metabolite Neg (Neg) U Marijuana (THC) Screen Pos H (Neg) Ethyl Alcohol mg/dL (<10.0) mg/dl SARS-CoV-2, RNA, NAAT (NEGATIVE) Imaging Data Attestation: I personally reviewed and interpreted this imaging study as follows: My Impression: Chest x-ray negative. Airway clear. No pneumothorax. No consolidation. Mild cardiomegaly no cephalization.. No free air under the diaphragm. No fractures of the skeletal structures. Radiologist's Impression: Head CT 08/10/23 18:26 Exam(s): CT HEAD Without Contrast EXAM: CT Head Without Intravenous Contrast CLINICAL HISTORY: Reason for exam: od. TECHNIQUE: Axial computed tomography images of the head/brain without intravenous contrast. CTDI is 35.22 mGy and DLP is 702.46 mGy-cm. Automated exposure control was utilized for the study. A dose lowering technique was utilized adhering to the principles of ALARA. COMPARISON: No relevant prior studies available. FINDINGS: No acute intracranial hemorrhage. No midline shift or mass effect. The territorial perea-white matter differentiation is maintained throughout. Age-related cerebral volume loss. Periventricular and subcortical white matter hypoattenuation, consistent with chronic microangiopathy. The visualized orbits appear grossly unremarkable. The calvarium is intact. The visualized paranasal sinuses and mastoid air cells are grossly clear. IMPRESSION: No acute intracranial hemorrhage, midline shift, or mass effect. Electronically signed by: Arturo Bennett MD 08/10/23 20:30 PM Chest X-Ray 08/10/23 18:27 XR chest 1V portable CLINICAL HISTORY: arrythmia TECHNIQUE: Single frontal radiograph of the chest was obtained. Comparison: Comparison is made to chest radiograph 07/14/2020 FINDINGS: Median sternotomy wires are unchanged. Cardiomegaly is noted. The aortic arch is calcified. The lungs are clear. No evidence of pleural effusion or pneumothorax. IMPRESSION: No acute chest disease. Cardiomegaly is noted. ACT 112: Negative or not required by law. Electronically signed by: Andrea Whitman M.D. 08/10/2023 7:22 PM ECG Data Attestation: I personally reviewed and interpreted this ECG as follows: Prescription Drug Monitoring Prescription Drug Findings: EKG #1 at 1825: Atrial fibrillation with a rate of 137. QRS and QTc intervals within normal limits. No ST elevation or ST depression. EKG #2 at 184 status post Cardizem 10 mg IV bolus: Atrial fibrillation with rate 116. QRS [address] elevation or ST depression. [facility] Narrative 1823: The patient was evaluated in room A4. A complete history and physical exam was performed Cardiac monitoring: An order was placed for continuous cardiac monitoring. The monitor shows a rate of 130-150 with atrial fibrilation rhythm interpreted by me 183: Spoke with Alana from poison control. Metoprolol is listed in the patient's home medications. Will avoid metoprolol at the advice of poison control in case there is any coingestions with that although unlikely given the patient's A-fib RVR. Will give Cardizem to control ventricular rate, small dose given 10 mg. Care and poison control is in agreement with Cardizem. 1844: Status post Cardizem 10 mg IV push the patient's ventricular rate improved. 1999: Nursing informs me that the patient ventricular rate is going up into the 130s. Patient was started on Cardizem drip. 2134: Vital signs stable on Cardizem drip. Patient labs and imaging are within normal limits. Patient be admitted to the [facility] hospitalist team for A- fib RVR and intentional overdose. Dr. Mackenzie's team notified. Impression & Plan Atrial fibrillation, Suicide attempt by drug overdose Discharge Plan Visit Data Chief Complaint: Overdose (Intentional) Stated Complaint: OVERDOSE ED Provider: Walter Chase Discharge Problem: Atrial fibrillation, Suicide attempt by drug overdose Patient Disposition: Admitted As Inpatient Forms Stand Alone Forms: [facility], Suicide Prevention Resources Prescriptions Prescriptions: No Action nitroglycerin 0.4 mg tablet, sublingual 0.4 mg sublingual Q5M PRN (Reason: Chest Pain) Rx Instructions: do not exceed 3 doses per episode metoprolol tartrate 50 mg tablet 50 mg PO BID 90 Days Qty: 60 2RF pantoprazole 40 mg tablet,delayed release (DR/EC) See Rx Instructions .ROUTE .COMPLEX Qty: 30 2RF Dose Instruction: TAKE 1 TABLET BY MOUTH EVERY DAY Rx Instructions: TAKE 1 TABLET BY MOUTH EVERY MORNING quetiapine [Seroquel] 300 mg tablet 300 mg PO HS Qty: 30 2RF atorvastatin 40 mg tablet 40 mg PO QAM escitalopram oxalate 10 mg tablet 15 mg PO QAM Rx Instructions: TAKE 1 & 1/2 TABLETS BY MOUTH EVERY MORNING lisinopril 10 mg tablet 10 mg PO QAM Rx Instructions: TAKE 1 TABLET BY MOUTH EVERY QAM Xarelto 20 mg tablet 20 mg PO QPM Rx Instructions: TAKE 1 TABLET ORALLY DAILY FOR 30 DAYS MUST ADMINISTER WITH EVENING MEAL Medical Marijuana 1 dose inhalation UD Referrals Referrals: Riley Ernst DO [Primary Care Provider] -
[2023-08-11] MEDS ORDERED: METOPROLOL TARTRATE 1 MG/ML VIAL IV PRN (00:48)
[2023-08-11] MEDS ORDERED: NITROGLYCERIN SL 0.4 MG/TAB TAB SL PRN (00:48)
[2023-08-11] MEDS ORDERED: ACETAMINOPHEN 325 MG TAB PO PRN (00:48)
[2023-08-11] MEDS: MAGNESIUM SULFATE / D5W 1 GM/100 ML BAG IV SCH ×5 (01:34→21:42)
[2023-08-11] MEDS: POTASSIUM CHLORIDE / WTR 10 MEQ/100 ML PLCT IV SCH ×2 (01:35→02:44)
[2023-08-11] MEDS: NSS + 20MEQ KCL 20 MEQ/1,000 ML BAG IV SCH ×2 (03:37→15:27)
[2023-08-11 05:08] LABS: Basophils # (auto) 0.02 K/uL (0.00-0.20); Basophils % (auto) 0.3 %; Eosinophils # (auto) 0.21 K/uL (0.00-0.50); Eosinophils % (auto) 3.2 %; Hematocrit (blood only) 37.6 % (42.0-52.0); Hemoglobin 12.8 g/dl (14.0-18.0); Immature Granulocytes # (auto) 0.02 K/uL (0.01-0.20); Immature Granulocytes % (auto) 0.3 %; Lymphocytes # (auto) 1.22 K/uL (1.20-3.40); Lymphocytes % (auto) 18.7 %; Mean Corpuscular Hemoglobin 33.3 pg (25.0-34.0); Mean Corpuscular Volume 97.9 fL (80.0-100.0); Monocytes # (auto) 0.64 K/uL (0.11-0.59); Monocytes % (auto) 9.8 %; Neutrophils % (auto) 67.7 %; Platelet Count 160 K/uL (130-400); RDW Coefficient of Variation 15.2 % (11.5-14.5); RDW Standard Deviation 54.8 fL (36.4-46.3); Red Blood Count 3.84 M/uL (4.70-6.10); White Blood Count 6.51 K/ul (4.8-10.8)
[2023-08-11 05:20] LABS: Calcium 8.5 mg/dl (8.6-10.3); Creatinine Clr Calc Pharmacy 108.8 ml/min; Est GFR (African American) 113.9 ml/min; Est GFR (Non-African American) 98.3 ml/min; Potassium 3.6 mmol/L (3.5-5.1)
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
[2023-08-11] MEDS ORDERED: POTASSIUM CHLORIDE CRTAB 20 MEQ TABCR PO STA (09:46)
[2023-08-11] MEDS: PANTOprazole 40 MG TAB PO SCH (09:58)
[2023-08-11] MEDS: ATORVASTATIN 40 MG TAB PO SCH (09:58)
[2023-08-11] MEDS: METOPROLOL TARTRATE 50 MG TAB PO SCH ×3 (09:58→23:01)
[2023-08-11] MEDS: ESCITALOPRAM OXALATE 10 MG TAB PO SCH (09:59)
[2023-08-11] MEDS: FOLIC ACID 1 MG TAB PO SCH (10:58)
[2023-08-11] MEDS: THIAMINE HCL 100 MG TAB PO SCH (10:58)
--- NOTE | 2023-08-11 12:58 | Electrocardiogram Report ---
Test Reason : Blood Pressure : / mmHG Vent. Rate : 137 BPM Atrial Rate : 000 BPM P-R Int : 000 ms QRS Dur : 084 ms QT Int : 320 ms P-R-T Axes : 000 095 -75 degrees QTc Int : 483 ms Poor data quality, interpretation may be adversely affected Atrial fibrillation with rapid ventricular response Rightward axis Marked ST abnormality, possible inferolateral subendocardial injury Abnormal ECG When compared with ECG of 14-JUL-2023 15:36, Significant changes have occurred Confirmed by Koko Woodard ([id number]) on 08/11/2023 12:57:34 PM Referred By: REFERRED SELF Confirmed By:Koko Woodard
--- NOTE | 2023-08-11 13:00 | Electrocardiogram Report ---
Test Reason : Blood Pressure : / mmHG Vent. Rate : 116 BPM Atrial Rate : 000 BPM P-R Int : 000 ms QRS Dur : 094 ms QT Int : 362 ms P-R-T Axes : 000 104 -37 degrees QTc Int : 503 ms Atrial fibrillation with rapid ventricular response Rightward axis Abnormal ECG When compared with ECG of 14-JUL-2023 15:36, Inverted T waves have replaced nonspecific T wave abnormality in Inferior leads Confirmed by Koko Woodard ([id number]) on 08/11/2023 1:00:05 PM Referred By: REFERRED SELF Confirmed By:Koko Woodard
--- NOTE | 2023-08-11 13:02 | Electrocardiogram Report ---
Test Reason : Blood Pressure : / mmHG Vent. Rate : 083 BPM Atrial Rate : 000 BPM P-R Int : 000 ms QRS Dur : 092 ms QT Int : 398 ms P-R-T Axes : 000 102 058 degrees QTc Int : 467 ms Atrial fibrillation Rightward axis Abnormal ECG When compared with ECG of 10-AUG-2023 18:43, (unconfirmed) ST no longer depressed in Lateral leads T wave inversion no longer evident in Inferior leads Confirmed by Koko Woodard ([id number]) on 08/11/2023 1:02:04 PM Referred By: REFERRED SELF Confirmed By:Koko Woodard
--- NOTE | 2023-08-11 13:09 | Electrocardiogram Report ---
Test Reason : Blood Pressure : / mmHG Vent. Rate : 081 BPM Atrial Rate : 053 BPM P-R Int : 000 ms QRS Dur : 096 ms QT Int : 400 ms P-R-T Axes : 000 104 031 degrees QTc Int : 464 ms Atrial fibrillation Rightward axis Septal infarct , age undetermined Abnormal ECG When compared with ECG of 11-AUG-2023 00:01, (unconfirmed) Septal infarct is now Present Nonspecific T wave abnormality now evident in Inferior leads Confirmed by Koko Woodard ([id number]) on 08/11/2023 1:08:55 PM Referred By: REFERRED SELF Confirmed By:Koko Woodard
[2023-08-11] MEDS: ACETAMINOPHEN 500 MG TAB PO SCH (16:42)
[2023-08-11] MEDS: CHOLECALCIFEROL 5,000 UNITS 125 MCG TAB PO SCH (17:20)
[2023-08-11] MEDS: DICLOFENAC SOD 1% GEL 100 GM TUBE EXT SCH ×2 (17:20→23:12)
[2023-08-11] MEDS: LACTATED RINGER'S 1,000 ML IV SCH (18:19)
--- NOTE | 2023-08-11 20:04 | Billing Data ---
Date of Service August 11, 2023 Coding Level of Care Code 57414 SUB INP/OBS CARE MIN
--- NOTE | 2023-08-11 20:05 | Hospitalist Progress Note ---
Date of Service August 11, 2023 Assessment & Plan Admission and Anticipated Discharge Date Admission Date: August 10, 2023 Results & Data Results & Data Vital Signs (Past 12 Hours) Vital Signs Temp Pulse Pulse Pulse Resp BP Pulse Ox 08/11/23 19:12 98.1 F 65 18 117/85 98 08/11/23 15:00 97.5 F L 64 14 120/85 100 08/11/23 14:54 67 08/11/23 11:00 98.4 F 76 23 129/92 96 08/11/23 09:39 83 08/11/23 08:23 96.6 F L 89 20 168/128 H 99 08/11/23 08:20 96.6 F L 82 16 150/121 H 99 O2 Del Method 08/11/23 19:12 Room Air 08/11/23 15:00 Room Air 08/11/23 14:54 08/11/23 11:00 Room Air 08/11/23 09:39 08/11/23 08:23 Room Air 08/11/23 08:20 Room Air PG Care Time/CCT Total # of Minutes Spent Total Time Spent with Patient: Total time spent is greater than 50% in coordination of care (as documented) at patient's floor/unit and/or counseling patient: Coding Level of Care Code None CPT Codes Musculoskeletal - Musculoskeletal: [address] 1-2 Body regions ([id number])
[2023-08-11] MEDS: CALCIUM 600MG + VIT D 400 IU TAB PO SCH (20:52)
[2023-08-11] MEDS: RIVAROXABAN 20 MG TAB PO SCH (20:52)
[2023-08-11] MEDS: diazePAM 5 MG TABLET PO SCH (23:11)
[2023-08-12] MEDS: MAGNESIUM SULFATE / D5W 1 GM/100 ML BAG IV SCH (00:25)
[2023-08-12] MEDS: ACETAMINOPHEN 500 MG TAB PO SCH ×4 (00:33→23:37)
[2023-08-12] MEDS: LACTATED RINGER'S 1,000 ML IV SCH (02:03)
--- NOTE | 2023-08-12 06:54 | Hospitalist Progress Note ---
Date of Service August 12, 2023 Assessment & Plan (1) Suicide attempt by drug overdose: Plan: #Intentional Drug Overdose #Suicidal Ideations #Depression #History of Suicide Attempts Patient reportedly physically removed from homeless retirement. Took 1800 mg Seroquel 08/10 with intent to as he was unhoused with no where to go. Regretted his actions. Tox screen + marijuana, negative for EtOH, salicylates, acetaminophen. CXR and Head CT - no acute findings. Continued suicidal ideation. Supportive care, monitor for somnolence Psych on board, appreciate recs Suicide precautions - safe tray, 1:1 #Malnutrition #Dehydration Patient malnourished and osteopenic. Start thiamine, folate, vit D, and calcium. Monitor refeeding labs - Mg, Phos, K. Fluid status significantly improved. Cut fluids to maintenance, d/c if adequate PO. Vitamin repletion Mg supplementation #A fib with RVR #Pauses EKG showed a fib with RVR likely in the setting of acute overdose and dehydration. Now in NSR after dilt drip. Unclear on timing of last dose of Xarelto so Lovenox was given on admission. Continue home anticoagulation. TSH WNL. Hold lisinopril for now can restart if persistently hypertensive. Patient with frequent pauses, longest 3.1 seconds. Electrolytes without significant abnormality. EKG without obvious heart block or Mobitz II. Tele reviewed - non- diagnostic. May need eval for pacer. Cardiology consult - appreciate recs. Lopressor 5 mg IV Q6H PRN for HR >110 Tele #Right Finger Fracture Patient reportedly fell when removed from the homeless retirement he had been living at. He injured his right wrist at this time. Probable proximal 5th digit fracture Consult ortho for splinting #Piriformis Syndrome, Left Side OMT while inpatient. Voltaren gel. Diazepam 10 mg QHS for muscle relaxant properties. Tylenol 1 g Q8H scheduled. Mag load 10 mEq x4 bags Code status: full DVT ppx: Xarelto FENGI: LR 125 mL/hr Dispo: PCU/Telemetry, inpatient psych (2) Atrial fibrillation with RVR: (3) Hypokalemia: (4) Depression: (5) CAD, multiple vessel: (6) Bipolar disorder: (7) Anxiety disorder, unspecified: (8) GERD (gastroesophageal reflux disease): (9) HTN (hypertension): Admission and Anticipated Discharge Date Admission Date: August 10, 2023 Supervising Physician Co-Signing Physician Notes I personally examined the patient and verified all byrnes points of history and exam, discussed case, and agree with decision making with Dr Ingram Tried to see 3 separate times today. First time he was sleeping, allowed him to rest. The second time he was awake but had to pee, and I told him I would be back in a little bit. The third time he was asleep again, and I allowed him to rest. Vitals noted, whenever he was awake he was pleasant no distress. HEENT normocephalic atraumatic mucous membranes moist. Breathing unlabored. Skin without overt pallor or icterus. Depression with suicidalityappears to be stable. Medically acceptable for transfer to inpatient psych. Appreciate psychiatry assistance. Hip pain/pelvic somatic dysfunction Based on yesterday's history and exam, it seems consistent with a piriformis mediated left sided biomechanical pain syndromeOMT done yesterday, Voltaren gel, magnesium givento affect greater muscle relaxation, Valium at bedtime for now while inpatient medically. Would probably benefit from ongoing OMT as an outpatient if the pain continues. On further review of old records, it seems that he has had a little bit of wandering low back and leg pain that would probably benefit from ongoing outpatient follow-up with his PCP. otherwise as above, anticoagulated for DVT proph Subjective Seen at bedside this AM. Feeling much improved. Review of Systems 2 Review of Systems: See HPI above Physical Exam 2 Physical Exam: General: Awakes to voice, no acute distress HEENT: normocephalic, atraumatic; MMM Neck: supple; trachea midline Skin: warm, no cyanosis CV: RRR; S1/S2 normal; no murmurs/rubs/gallops; clinically well perfused Lungs: no acute respiratory distress; CTAB no wheezing ABD: no distention MSK: no tics or fasciculations; no edema noted in the LEs b/l Neuro: alert and oriented Psych: poor eye contact Results & Data Results & Data Vital Signs (Past 12 Hours) Vital Signs Temp Pulse Resp BP Pulse Ox O2 Del Method 08/12/23 03:30 36.9 C 68 16 132/65 97 Room Air 08/11/23 23:02 36.7 C 70 16 134/89 96 Room Air 08/11/23 19:12 36.7 C 65 18 117/85 98 Room Air Laboratory Results 08/12/23 08:39 08/12/23 08:39 Resident Activity Tracking Resident Involvement: Resident Care Provided Care Provided: Adult Hospital Medicine
[2023-08-12] MEDS: METOPROLOL TARTRATE 50 MG TAB PO SCH ×2 (08:46→20:44)
[2023-08-12] MEDS: ESCITALOPRAM OXALATE 10 MG TAB PO SCH (08:52)
[2023-08-12] MEDS: PANTOprazole 40 MG TAB PO SCH (08:53)
[2023-08-12] MEDS: ATORVASTATIN 40 MG TAB PO SCH (08:53)
[2023-08-12] MEDS: CALCIUM 600MG + VIT D 400 IU TAB PO SCH ×2 (08:53→20:43)
[2023-08-12] MEDS: FOLIC ACID 1 MG TAB PO SCH (08:54)
[2023-08-12] MEDS: THIAMINE HCL 100 MG TAB PO SCH (08:54)
[2023-08-12] MEDS: DICLOFENAC SOD 1% GEL 100 GM TUBE EXT SCH ×4 (08:56→20:44)
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
[2023-08-12 09:26] LABS: Basophils # (auto) 0.02 K/uL (0.00-0.20); Basophils % (auto) 0.3 %; Eosinophils # (auto) 0.25 K/uL (0.00-0.50); Eosinophils % (auto) 3.7 %; Hematocrit (blood only) 40.3 % (42.0-52.0); Hemoglobin 13.1 g/dl (14.0-18.0); Immature Granulocytes # (auto) 0.03 K/uL (0.01-0.20); Immature Granulocytes % (auto) 0.4 %; Lymphocytes # (auto) 1.11 K/uL (1.20-3.40); Lymphocytes % (auto) 16.5 %; Mean Corpuscular Hemoglobin 32.6 pg (25.0-34.0); Mean Corpuscular Hgb Conc 32.5 g/dL (32.0-36.0); Mean Corpuscular Volume 100.2 fL (80.0-100.0); Mean Platelet Volume 10.7 fL (9.4-12.4); Monocytes # (auto) 0.45 K/uL (0.11-0.59); Monocytes % (auto) 6.7 %; Neutrophils # (auto) 4.85 K/uL (1.40-6.50); Neutrophils % (auto) 72.4 %; Platelet Count 177 K/uL (130-400); RDW Coefficient of Variation 15.2 % (11.5-14.5); RDW Standard Deviation 56.5 fL (36.4-46.3); Red Blood Count 4.02 M/uL (4.70-6.10); White Blood Count 6.71 K/ul (4.8-10.8)
[2023-08-12 09:27] LABS: BUN Creatinine Ratio 13.9 (10-20); Calcium 8.7 mg/dl (8.6-10.3); Creatinine Clr Calc Pharmacy 113.3 ml/min; Est GFR (African American) 115.9 ml/min; Magnesium 2.1 mg/dl (1.7-2.4); Phosphorus 2.7 mg/dl (2.5-4.9); Potassium 3.6 mmol/L (3.5-5.1)
[2023-08-12] MEDS: CHOLECALCIFEROL 5,000 UNITS 125 MCG TAB PO SCH (10:26)
[2023-08-12] MEDS ORDERED: LACTATED RINGER'S 1,000 ML IV SCH (10:45)
[2023-08-12] MEDS: RIVAROXABAN 20 MG TAB PO SCH (16:44)
--- NOTE | 2023-08-12 18:08 | Billing Data ---
Date of Service August 12, 2023 Coding Level of Care Code 49608 SUB INP/OBS CARE
[2023-08-12] MEDS: lisinopril 10 MG TAB PO SCH (18:16)
[2023-08-12] MEDS: diazePAM 5 MG TABLET PO SCH (20:43)
--- NOTE | 2023-08-13 06:44 | Hospitalist Progress Note ---
Date of Service August 13, 2023 Assessment & Plan (1) Suicide attempt by drug overdose: Plan: #Intentional Drug Overdose #Suicidal Ideations #Depression #History of Suicide Attempts Patient reportedly physically removed from homeless longterm. Took ~1800 mg Seroquel 08/10 with intent to as he was unhoused with no where to go. Regretted his actions. Tox screen + marijuana, negative for EtOH, salicylates, acetaminophen. CXR and Head CT - no acute findings. Continued suicidal ideation. Supportive care, monitor for somnolence Psych on board, appreciate recs Suicide precautions - safe tray, 1:1 #Malnutrition #Dehydration Patient malnourished and osteopenic. Start thiamine, folate, vit D, and calcium. Monitor refeeding labs - Mg, Phos, K. Fluid status significantly improved. Tolerating PO. Vitamin repletion Mg supplementation #A fib with RVR #Pauses EKG showed a fib with RVR likely in the setting of acute overdose and dehydration. Now in NSR after dilt drip. Unclear on timing of last dose of Xarelto so Lovenox was given on admission. Continue home anticoagulation. TSH WNL. Hold lisinopril for now can restart if persistently hypertensive. Patient with frequent pauses, longest 3.1 seconds. Electrolytes without significant abnormality. EKG without obvious heart block or Mobitz II. Tele reviewed - non- diagnostic. May need eval for pacer. Cardiology consult - appreciate recs. Lopressor 5 mg IV Q6H PRN for HR >110 Tele Cards consult #Right Finger Fracture Patient reportedly fell when removed from the homeless longterm he had been living at. He injured his right wrist at this time. Probable proximal 5th digit fracture. Ortho recommend kaiser tape. #Piriformis Syndrome, Left Side OMT while inpatient. Voltaren gel. Diazepam 10 mg QHS for muscle relaxant properties. Tylenol 1 g Q8H scheduled. Mag load 10 mEq x4 bags. Replete as indicated. Code status: full DVT ppx: Xarelto FENGI: LR 125 mL/hr Dispo: PCU/Telemetry, inpatient psych (2) Atrial fibrillation with RVR: (3) Hypokalemia: (4) Depression: (5) CAD, multiple vessel: (6) Bipolar disorder: (7) Anxiety disorder, unspecified: (8) GERD (gastroesophageal reflux disease): (9) HTN (hypertension): Admission and Anticipated Discharge Date Admission Date: August 10, 2023 Supervising Physician Co-Signing Physician Notes I personally examined the patient and verified all byrnes points of history and exam, discussed case, and agree with decision making with Dr Ingram feels ok hip pain better no new complaints. vitals noted nad heent nc at mmm breathing unlabored no accessory muscles good effort skin no rashes no pallor or icterus. Depression with suicidalitystable. Medically acceptable for transfer to inpatient psych. Appreciate psychiatry assistance. Hip pain/pelvic somatic dysfunction Based on prior history and exam, it seems consistent with a piriformis mediated left sided biomechanical pain syndromeOMT done prior, Voltaren gel, magnesium was given to affect greater muscle relaxation, Valium at bedtime for now while inpatient medically. Would probably benefit from ongoing OMT as an outpatient if the pain continues. On further review of old records, it seems that he has had a little bit of wandering low back and leg pain that would probably benefit from ongoing outpatient follow-up with his PCP. bradycardia w pauses - reduce beta jackie, appreciate cardiology input otherwise as above, anticoagulated for DVT proph Subjective Seen at bedside this AM. Feeling better. Continued intrusive thoughts of SI. Improved. Review of Systems 2 Review of Systems: See HPI above Physical Exam 2 Physical Exam: General: Awakes to voice, no acute distress HEENT: normocephalic, atraumatic; MMM Neck: supple; trachea midline Skin: warm, no cyanosis CV: RRR; S1/S2 normal; no murmurs/rubs/gallops; clinically well perfused Lungs: no acute respiratory distress; CTAB no wheezing ABD: no distention MSK: no tics or fasciculations; no edema noted in the LEs b/l Neuro: alert and oriented Psych: poor eye contact Results & Data Results & Data Vital Signs (Past 12 Hours) Vital Signs Temp Pulse Pulse Resp BP Pulse Ox O2 Del Method 08/13/23 02:14 36.7 C 56 L 20 131/68 97 Room Air 08/12/23 23:00 63 08/12/23 22:04 36.7 C 55 L 20 123/83 97 Room Air 08/12/23 21:00 53 L Laboratory Results 08/13/23 06:49 08/13/23 06:49 Resident Activity Tracking Resident Involvement: Resident Care Provided Care Provided: Adult [facility]
[2023-08-13 07:41] LABS: Basophils # (auto) 0.03 K/uL (0.00-0.20); Basophils % (auto) 0.4 %; Eosinophils # (auto) 0.27 K/uL (0.00-0.50); Eosinophils % (auto) 3.5 %; Hematocrit (blood only) 42.5 % (42.0-52.0); Immature Granulocytes # (auto) 0.03 K/uL (0.01-0.20); Immature Granulocytes % (auto) 0.4 %; Lymphocytes # (auto) 1.25 K/uL (1.20-3.40); Lymphocytes % (auto) 16.2 %; Mean Corpuscular Hemoglobin 32.9 pg (25.0-34.0); Mean Corpuscular Hgb Conc 32.9 g/dL (32.0-36.0); Mean Platelet Volume 10.9 fL (9.4-12.4); Monocytes # (auto) 0.72 K/uL (0.11-0.59); Monocytes % (auto) 9.4 %; Neutrophils % (auto) 70.1 %; Platelet Count 176 K/uL (130-400); Red Blood Count 4.25 M/uL (4.70-6.10)
[2023-08-13 08:04] LABS: BUN Creatinine Ratio 10.5 (10-20); Calcium 9.2 mg/dl (8.6-10.3); Creatinine Clr Calc Pharmacy 94.9 ml/min; Est GFR (African American) 107.7 ml/min; Est GFR (Non-African American) 92.9 ml/min; Magnesium 1.6 mg/dl (1.7-2.4); Phosphorus 3.6 mg/dl (2.5-4.9)
[2023-08-13] MEDS: THIAMINE HCL 100 MG TAB PO SCH (09:12)
[2023-08-13] MEDS: ESCITALOPRAM OXALATE 10 MG TAB PO SCH (09:12)
[2023-08-13] MEDS: CALCIUM 600MG + VIT D 400 IU TAB PO SCH ×2 (09:12→20:02)
[2023-08-13] MEDS: ATORVASTATIN 40 MG TAB PO SCH (09:12)
[2023-08-13] MEDS: ACETAMINOPHEN 500 MG TAB PO SCH ×2 (09:12→16:13)
[2023-08-13] MEDS: CHOLECALCIFEROL 5,000 UNITS 125 MCG TAB PO SCH (09:12)
[2023-08-13] MEDS: FOLIC ACID 1 MG TAB PO SCH (09:13)
[2023-08-13] MEDS: METOPROLOL TARTRATE 50 MG TAB PO SCH (09:13)
[2023-08-13] MEDS: DICLOFENAC SOD 1% GEL 100 GM TUBE EXT SCH ×4 (09:13→19:54)
[2023-08-13] MEDS: PANTOprazole 40 MG TAB PO SCH (09:13)
[2023-08-13] MEDS: lisinopril 10 MG TAB PO SCH (09:13)
--- NOTE | 2023-08-13 09:19 | Cardiology Consultation ---
Date of Consultation August 13, 2023 Assessment & Plan (1) Atrial fibrillation with RVR: (2) CAD, multiple vessel: (3) HTN (hypertension): (4) Dyslipidemia: Plan 1. Atrial fibrillation: He presented in atrial fibrillation with rapid heart rate, although he quickly had slowing of his heart rate and is now somewhat bradycardic. He tells me that he is compliant with his medication but also tells me that he only takes his metoprolol in the morning. I would probably reduce his beta-jackie, it would probably be better for him to be on once a day not twice a day metoprolol as well. I am going to change it to 50 mg metoprolol succinate daily. He should remain on anticoagulation which he tells me he is compliant and tells me he takes his Xarelto in the evening. This should be acceptable. 2. Coronary artery disease: He has known coronary artery disease, his prese nting electrocardiogram suggested inferolateral ischemia not present when his rate slowed. His initial cardiac enzymes were negative. He tells me that he has had progression of his disease but they wanted to treat it medically, this is consistent and his symptoms are stable so I would not further investigate. 3. Hypertension: His blood pressure appears quite labile on review of his records, but I do not know how compliant he is with medications. 4. Dyslipidemia: He has coronary artery disease and is supposed to be on atorvastatin, I do not see a cholesterol determination in his records. History of Present Illness Reason for Consultation: Atrial fibrillation, coronary artery disease Attending Physician: Kimo Wynne DO History of Present Illness This is a 62-year-old male who follows in our office with Eliceo Chao under direction of Dr. Woodard. She has a history of multivessel coronary artery disease and had bypass surgery in [place] in 2013. She also has a history of hypertension, dyslipidemia, tobacco abuse and bipolar disorder as well as a history of atrial fibrillation. He arrived here from [place] September 2022 but became homeless and although he was seen in our office December 26, 2022 he has not been seen since. He has had a number of emergency room visits. He presented August 10, 2023 with an attempted suicide attempt. At home he is supposed to be taking metoprolol tartrate 50 mg twice a day, Xarelto 20 mg daily as well as atorvastatin 40 mg daily and lisinopril 10 mg daily. He tells me that he is compliant with his medications. He thinks that he has paroxysmal atrial fibrillation but does not know when he was last in it, he does not feel palpitations so does not have a specific awareness of his arrhythmia. He does not typically get angina however with emotional upset he w ill (this occurred 3 to 4 days ago), when he does get he tries to relax and it goes away relatively quickly. He used to get angina with bicycle riding but has not been doing that lately and does not get it with other forms of exercise. It appears to be quite stable. His presenting electrocardiogram August 10, 2023 showed atrial fibrillation with a heart rate of [address] depression. By the next day his rate was very well controlled at 83 bpm. On August 12, 2023 his heart rate was little bit slower at 67 bpm, his recent electrocardiograms did not show ST depression. 1 troponin done in the emergency room on presentation was normal at 14.7. Others were not done. Chest x-ray is generally unremarkable. I do not see an echocardiogram in his records. Allergies Allergy/AdvReac Type Severity Reaction Status Date / Time haloperidol [From Haldol] AdvReac Intermediate muscle Verified 08/02/23 08:56 cramping Home Medications Medication Instructions Recorded Confirmed Type nitroglycerin 0.4 mg sublingual 0.4 mg sublingual Q5M PRN Chest 12/23/22 08/10/23 History tablet Pain Medical Marijuana 1 dose inhalation UD 02/02/23 08/10/23 History atorvastatin 40 mg tablet 40 mg PO QAM 07/11/23 08/10/23 History metoprolol tartrate 50 mg tablet 50 mg PO BID 90 days #60 tabs 07/17/23 08/10/23 Rx pantoprazole 40 mg tablet,delayed See Rx Instructions .Route 07/17/23 08/10/23 Rx release .COMPLEX #30 tabs quetiapine 300 mg tablet (Seroquel) 300 mg PO HS #30 tabs 07/17/23 08/10/23 Rx escitalopram oxalate 10 mg tablet 15 mg PO QAM 08/10/23 08/10/23 History lisinopril 10 mg tablet 10 mg PO QAM 08/10/23 08/10/23 History rivaroxaban 20 mg tablet (Xarelto) 20 mg PO QPM 08/10/23 08/10/23 History Patient History Medical History Medical marijuana use Lives in homeless [facility] History of COVID-19 11/2022- home test done at homeless [facility]- no symptoms Seasonal allergies COPD (chronic obstructive pulmonary disease) Hx of myocardial infarction 2013 Poor historian Dyslipidemia Depression GERD (gastroesophageal reflux disease) Trauma and stressor-related disorder Anxiety disorder, unspecified HTN (hypertension) Atrial fibrillation managed w/ xarelto- unsure who cardio is Surgical History Hx of colonoscopy History of open reduction and internal fixation (ORIF) procedure elbow Hx of cardiac catheterization x2 stents - unsure when; sometime after 2013 in [place], [place] S/P CABG x 3 2013- unsure who cardio is- done in [place], [place] Family History Mother Cancer Myocardial infarction Ovarian cancer Father Prostate cancer Myocardial infarction Denies family history of Diabetes Breast cancer Lung cancer Colorectal cancer Stroke Social History Smoking Status: Current every day smoker Tobacco Type: Cigarettes packs per day: 1; Cigarettes Per Day: 20; Second Hand Exposure: Yes; Do You Dip or Chew Tobacco: No; Tobacco Cessation Education Requested by Patient: No Hx Alcohol Use: No Hx Substance Use: Yes Prescribed Medications: Marijuana Last Used Substance: Unknown Substance Use Type Other:: medical marijuana Preferred Language: Andorran Communication Ability: Effective Visual Impairment: Diminished Hearing Ability: Normal 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 Beliefs That Will Affect Care: None marital status: Single Current Living Situation: Other Current Living Situation Comment: out of the cold current occupational status: disabled How many Children do You have: 0 Other Information That Helps Us Care for You: No Feels Safe at Home: Yes Safety Concerns: Feels Safe At This Time Childhood Exposure to Second-Hand Smoke: Yes caffeine: Yes Dental Care, Regularly: No Physical Activity Frequency: Daily Seatbelt Use: always Sunscreen Use: Yes Assistive Devices: Denture - Upper, Denture - Lower and Glasses Review of Systems Review of Systems: All systems reviewed & are unremarkable except as noted in HPI & below Physical Exam Physical Exam: Constitutional: Alert, cooperative and in no distress. HEENT: Unremarkable Neck: No jugular venous distention, carotid pulses are irregular but otherwise normal and equal bilaterally without bruits. Pulmonary: Clear to auscultation bilaterally. Cardiac: Irregular rhythm with no murmur, gallop or rub. Abdomen: Soft, nontender with normal bowel sounds. Extremities: No edema. Distal pulses intact. Neurologic: No focal findings. Gait is steady. Skin: No rash, ecchymoses or petechiae. Results & Data Vital Signs (Past 12 Hours) Vital Signs Temp Pulse Pulse Resp BP Pulse Ox O2 Del Method 08/13/23 07:27 61 08/13/23 07:21 36.4 C L 66 17 129/97 97 Room Air 08/13/23 02:14 36.7 C 56 L 20 131/68 97 Room Air 08/12/23 23:00 63 08/12/23 22:04 36.7 C 55 L 20 123/83 97 Room Air Diagnostic Findings CBC 08/12/23 08/13/23 Range/Units 08:39 06:49 WBC 6.71 7.70 (4.8-10.8) K/ul RBC 4.02 L 4.25 L (4.70-6.10) M/uL Hgb 13.1 L 14.0 (14.0-18.0) g/dl Hct 40.3 L 42.5 (42.0-52.0) % Plt Count 177 176 (130-400) K/uL Neut # (Auto) 4.85 5.40 (1.40-6.50) K/uL Lymph # (Auto) 1.11 L 1.25 (1.20-3.40) K/uL [place] # (Auto) 0.45 0.72 H (0.11-0.59) K/uL Eos # (Auto) 0.25 0.27 (0.00-0.50) K/uL Baso # (Auto) 0.02 0.03 (0.00-0.20) K/uL Comprehensive Metabolic Panel 08/12/23 08/13/23 Range/Units 08:39 06:49 Sodium 136 135 L (136-145) mmol/L Potassium 3.6 4.0 (3.5-5.1) mmol/L Chloride 108 H 105 (98-107) mmol/L Carbon Dioxide 23 25 (21-32) mmol/L BUN 10 9 (6-23) mg/dl Creatinine 0.72 0.86 (0.6-1.4) mg/dl Glucose 125 H 84 (70-99(Fasting)) mg/dl Calcium 8.7 9.2 (8.6-10.3) mg/dl Intake and Output 08/12/23 08/13/23 08/13/23 22:59 06:59 14:59 Intake Total 250 / 2650 1400 / 2650 Output Total 1976 Balance -551 / 673 1050 / 673 Intake: IV 1000 / 1999 Lactated Ringer's 1,000 ml @ 80 1000 / 1000 mls/hr IV .[id number] KENIA Rx#: [id number] Oral 250 / 650 400 / 650 Output: Urine 1974 # Bowel Movements Telemetry: Atrial fibrillation with a somewhat slow overall heart rate and pauses generally in the 2-second range with at least 1 of 3 seconds. No symptomatic bradycardia. PG Care Time/CCT Total # of Minutes Spent Total Time Spent with Patient: Total time spent is greater than 50% in coordination of care (as documented) at patient's floor/unit and/or counseling patient: Coding Level of Care Code 28529 INT INP/OBS CARE MIN Diagnoses Atrial fibrillation with RVR I48.91 CAD, multiple vessel I25.10 Primary hypertension I10 Hypertension type: primary hypertension Dyslipidemia E78.5 (3) HTN (hypertension) Hypertension type: primary hypertension Qualified Code(s): I10 - Essential (primary) hypertension
[2023-08-13] MEDS: MAGNESIUM SULFATE / D5W 1 GM/100 ML BAG IV SCH ×2 (09:33→11:14)
--- NOTE | 2023-08-13 14:05 | XCELERA ---
[id number]
--- NOTE | 2023-08-13 15:05 | Psychiatric Progress Note ---
Date of Service August 13, 2023 Impression / Recommendations Impression 62 yo man with long hx of chronic intermittent SI, possibly due to childhood trauma/PTSD component versus from personality traits, anxiety and now worsening depression in the context of homelessness with suicide attempt via overdose now medically stable. Diagnostically consistent with unspecified depressive disorder likely combination of worsened depression due to psychosocial stressor of lack of housing. He is now medically stable so will start inpatient psychiatry bed search given acute risk of self-harm remains elevated and high given suicide attempt requiring medical admission, history of prior attempts, impulsivity, social isolation, limited insight. Given elevated risk of harm to self they meet criteria for inpatient psychiatric care for diagnostic clarification, safety/stabilization, development of additional coping skills, medication management and disposition/safety planning. If he changes his mind about voluntary treatment they will meet criteria for 302 status based on severity of suicide attempt and ongoing modifiable risk factors. Overall, I spent a total of 60 minutes with this case including review of chart records, review of labwork, direct evaluation of the patient at bedside, counseling the patient, discussion of the patient with the Nurse and with the hospitalist provider, discussion with the psychiatric liason during clinical rounds and documentation in the electronic health record. (1) Suicide attempt by drug overdose: (2) Trauma and stressor-related disorder: (3) Depression: (4) Anxiety disorder, unspecified: Plan -Now medically stable, start inpatient psychiatry bed search -Continue 1-on-1 for risk of harm to self -Do not discharge or allow to leave AMA, would meet 302 criteria -Hold psych medications for now Interval History Identifying Information 62 yo man who who is currently homeless with a history of trauma, anxiety, depression with multiple prior suicide attempts and psychiatric hospitalizations admitted medically following suicide attempt via overdose of Seroquel. Psychiatry consulted for risk assessment. Chief Complaint "I don't like it because when all is said and done I'm going to be on the street". Subjective Subjective Patient was seen & assessed and interval progress reviewed. Timmy reports ongoing SI and feels "I don't like it" about being alive due to psychosocial stressor of losing acces to living at [facility]. 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 Describes having a rep payee to help him manage his money and wishes he did not have this person. Thinks he would like to move back toward [facility] eventually versus staying in [place]. Physical Exam Psychiatric Orientation: alert and oriented x 3 Apperance: appropriately dressed and appropriately groomed Eye Contact: good eye contact Motor Behavior: no abnormal motor movements Speech: normal rate/rhythm/volume of speech Affect: + depressed affect Mood: + depressed mood Thought Process: goal directed thought process Thought Content: reality based without delusions Suicidal Thoughts: denies suicidal plan; + reports suicidal thoughts (intermittent, ambivalent about surviving attempt) Homicidal Thoughts: denies homicidal thoughts Hallucinations: no auditory hallucinations and no visual hallucinations Cognition: attention grossly intact and language grossly intact Estimated Intelligence: consistent with education level Insight: + limited insight Judgment: + limited judgement Vital Signs (Past 24 Hours) Last Vital Signs Temp 36.4 C L 08/13/23 07:21 Pulse 49 L 08/13/23 12:50 Resp 17 08/13/23 07:21 BP 142/85 H 08/13/23 12:50 Pulse Ox 98 08/13/23 12:50 O2 Del Method Room Air 08/13/23 12:50 Results & Data ([facility]) Laboratory Results Laboratory Results - last 24 hr 08/13/23 06:49 WBC 7.70 RBC 4.25 L Hgb 14.0 Hct 42.5 MCV 100.0 MCH 32.9 MCHC 32.9 RDW Std Deviation 55.0 H RDW Coeff of [place] 15.0 H Plt Count 176 MPV 10.9 Immature Gran % (Auto) 0.4 Neut % (Auto) 70.1 Lymph % (Auto) 16.2 [place] % (Auto) 9.4 Eos % (Auto) 3.5 Baso % (Auto) 0.4 Neut # (Auto) 5.40 Lymph # (Auto) 1.25 [place] # (Auto) 0.72 H Eos # (Auto) 0.27 Baso # (Auto) 0.03 Immature Gran # (Auto) 0.03 Sodium 135 L Potassium 4.0 Chloride 105 Carbon Dioxide 25 Anion Gap 5 BUN 9 Creatinine 0.86 Est Cr Clr Drug Dosing 94.9 Est GFR ( Amer) 107.7 Est GFR (Non-Af Amer) 92.9 BUN/Creatinine Ratio 10.5 Glucose 84 Calcium 9.2 Phosphorus 3.6 Magnesium 1.6 L Current Inpatient Medications Current Inpatient Medications: Current Inpatient Medications Acetaminophen (Acetaminophen 500 Mg Tab) 1,000 mg PO Q8H [facility] Stop: 09/10/23 15:59 Last Admin: 08/13/23 09:12 Dose: 1,000 mg Atorvastatin Calcium (Atorvastatin 40 Mg Tab) 40 mg PO [facility] Stop: 09/10/23 08:59 Last Admin: 08/13/23 09:12 Dose: 40 mg Calcium/Vitamin D (Calcium 600mg + Vit D 400 Iu Tab) 1 tab PO BID [facility] Stop: 09/10/23 20:59 Last Admin: 08/13/23 09:12 Dose: 1 tab Diazepam (Diazepam 5 Mg Tablet) 10 mg PO HS [facility] Stop: 09/10/23 20:59 Last Admin: 08/12/23 20:43 Dose: 10 mg Diclofenac Sodium (Diclofenac Sod 1% Gel 100 Gm Tube) 2 gm EXT QID [facility]; Protocol Stop: 09/10/23 16:59 Last Admin: 08/13/23 13:19 Dose: Not Given Escitalopram Oxalate (Escitalopram Oxalate 10 Mg Tab) 15 mg PO [facility] Stop: 09/10/23 08:59 Last Admin: 08/13/23 09:12 Dose: 15 mg Folic Acid (Folic Acid 1 Mg Tab) 1 mg PO [facility] Stop: 09/10/23 10:14 Last Admin: 08/13/23 09:13 Dose: 1 mg Lisinopril (Lisinopril 10 Mg Tab) 10 mg PO [facility] Stop: 09/11/23 17:44 Last Admin: 08/13/23 09:13 Dose: 10 mg Metoprolol Succinate (Metoprolol Succ 50mg Ext Rel Tab) 50 mg PO [facility] Stop: 09/13/23 08:59 Metoprolol Tartrate (Metoprolol Tartrate 1 Mg/Ml Vial) 5 mg IV Q4H PRN PRN Reason: HR >110 with afib Stop: 09/10/23 00:47 Nitroglycerin (Nitroglycerin Sl 0.4 Mg/Tab Tab) 0.4 mg SL Q5M PRN PRN Reason: Chest Pain Stop: 09/10/23 00:47 [facility]oprazole S[facility] ([facility] 40 Mg Tab) [facility] Stop: 09/10/23 08:59 Last Admin: 08/13/23 09:13 Dose: 40 mg Rivaroxaban (Rivaroxaban 20 Mg Tab) 20 mg PO QDD [facility] Stop: 09/10/23 20:59 Last Admin: 08/12/23 16:44 Dose: 20 mg Thiamine HCl (Thiamine Hcl 100 Mg Tab) 100 mg PO [facility] Stop: 09/10/23 10:14 Last Admin: 08/13/23 09:12 Dose: 100 mg Vitamin D (Cholecalciferol 5,000 Units 125 Mcg Tab) [facility] Stop: 09/10/23 16:14 Last Admin: 08/13/23 09:12 Dose: 5,000 units
[2023-08-13] MEDS: RIVAROXABAN 20 MG TAB PO SCH (16:13)
--- NOTE | 2023-08-13 17:36 | Billing Data ---
Date of Service August 13, 2023 Coding Level of Care Code 02979 SUB INP/OBS CARE
--- NOTE | 2023-08-13 19:56 | Electrocardiogram Report ---
Test Reason : Blood Pressure : / mmHG Vent. Rate : 067 BPM Atrial Rate : 300 BPM P-R Int : 000 ms QRS Dur : 100 ms QT Int : 448 ms P-R-T Axes : 000 091 060 degrees QTc Int : 473 ms Atrial fibrillation Rightward axis Abnormal ECG When compared with ECG of 11-AUG-2023 09:55, Criteria for Septal infarct are no longer Present Nonspecific T wave abnormality no longer evident in Inferior leads Confirmed by Amilcar Nieves ([id number]) on 08/13/2023 7:56:13 PM Referred By: REFERRED SELF Confirmed By:Amilcar Nieves
[2023-08-13] MEDS: diazePAM 5 MG TABLET PO SCH (20:02)
[2023-08-14] MEDS: ACETAMINOPHEN 500 MG TAB PO SCH ×2 (00:12→08:13)
[2023-08-14] MEDS: MAGNESIUM SULFATE / D5W 1 GM/100 ML BAG IV SCH ×2 (08:11→09:29)
[2023-08-14] MEDS: CALCIUM 600MG + VIT D 400 IU TAB PO SCH (08:11)
[2023-08-14] MEDS: ESCITALOPRAM OXALATE 10 MG TAB PO SCH (08:12)
[2023-08-14] MEDS: THIAMINE HCL 100 MG TAB PO SCH (08:12)
[2023-08-14] MEDS: PANTOprazole 40 MG TAB PO SCH (08:12)
[2023-08-14] MEDS: lisinopril 10 MG TAB PO SCH (08:12)
[2023-08-14] MEDS: ATORVASTATIN 40 MG TAB PO SCH (08:12)
[2023-08-14] MEDS: FOLIC ACID 1 MG TAB PO SCH (08:12)
[2023-08-14] MEDS: DICLOFENAC SOD 1% GEL 100 GM TUBE EXT SCH ×2 (08:13→13:21)
[2023-08-14 08:31] LABS: BUN Creatinine Ratio 11.7 (10-20); Creatinine Clr Calc Pharmacy 86.8 ml/min; Est GFR (African American) 100.3 ml/min; Est GFR (Non-African American) 86.5 ml/min; Magnesium 1.7 mg/dl (1.7-2.4); Phosphorus 3.4 mg/dl (2.5-4.9); Potassium 4.2 mmol/L (3.5-5.1)
[2023-08-14] MEDS ORDERED: METOPROLOL SUCC 50MG EXT REL TAB PO SCH (09:00)
--- NOTE | 2023-08-14 09:05 | Cardiology Progress Note ---
Date of Service August 14, 2023 Assessment & Plan (1) Atrial fibrillation with RVR: (2) CAD, multiple vessel: (3) HTN (hypertension): (4) Dyslipidemia: Plan 1. Atrial fibrillation: He presented in atrial fibrillation with rapid heart rate, although he quickly had slowing of his heart rate and became somewhat bradycardic. He tells me that he is compliant with his medication but also tells me that he only takes his metoprolol in the morning. I did reduce his beta-jackie, it would probably be better for him to be on once a day not twice a day metoprolol as well. His heart rate is better on 50 mg metoprolol succinate daily but he received his first dose today. He should remain on anticoagulation which he tells me he is compliant and tells me he takes his Xarelto in the evening. This should be acceptable. 2. Coronary artery disease: He has known coronary artery disease, his presenting electrocardiogram suggested inferolateral ischemia not present when his rate slowed. His initial cardiac enzymes were negative. He tells me that he was told before he moved here that he has had progression of his disease but they wanted to treat it medically, this is consistent and his symptoms are stable so I would not further investigate. 3. Hypertension: His blood pressure appears quite labile on review of his records and here. If we go up on his medications I would not use AV ratna blocking medications other than the 50 mg of metoprolol succinate. 4. Dyslipidemia: He has coronary artery disease and is supposed to be on atorvastatin, I do not see a cholesterol determination in his records. He indicated that he would like to follow-up with us so I will arrange a follow- up in 1 month. Admission and Anticipated Discharge Date Admission Date: August 10, 2023 Subjective He is feeling very well today, he has no cardiovascular complaints. He remains free of atrial fibrillation symptoms. Physical Exam Physical Exam: Constitutional: Alert, cooperative and in no distress. HEENT: Unremarkable Neck: No jugular venous distention, carotid pulses are irregular but otherwise normal and equal bilaterally without bruits. Pulmonary: Clear to auscultation bilaterally. Cardiac: Irregular rhythm with no murmur, gallop or rub. Abdomen: Soft, nontender with normal bowel sounds. Extremities: No edema. Distal pulses intact. Neurologic: No focal findings. Gait is steady. Skin: No rash, ecchymoses or petechiae. Results & Data Vital Signs (Past 12 Hours) Vital Signs Temp Pulse Resp BP Pulse Ox O2 Del Method 08/14/23 07:24 36.9 C 68 20 152/106 H 94 Room Air 08/14/23 03:08 36.5 C 54 L 12 148/100 H 98 Room Air 08/13/23 23:16 36.4 C L 55 L 15 154/101 H 96 Room Air Laboratory Results Comprehensive Metabolic Panel 08/14/23 Range/Units 07:30 Sodium 135 L (136-145) mmol/L Potassium 4.2 (3.5-5.1) mmol/L Chloride 102 (98-107) mmol/L Carbon Dioxide 29 (21-32) mmol/L BUN 11 (6-23) mg/dl Creatinine 0.94 (0.6-1.4) mg/dl Glucose 87 (70-99(Fasting)) mg/dl Calcium 9.0 (8.6-10.3) mg/dl Intake and Output 08/13/23 08/14/23 08/14/23 22:59 06:59 14:59 Intake Total 150 / 550 200 / 550 Output Total 175 / 525 350 / 525 100 / 100 Balance -25 / 25 -150 / 25 -100 / -100 Intake: Oral 150 / 350 200 / 350 Output: Urine 175 / 525 350 / 525 100 / 100 Other: # Unmeasured Voids 1 1 PG Care Time/CCT Total # of Minutes Spent Total Time Spent with Patient: Total time spent is greater than 50% in coordination of care (as documented) at patient's floor/unit and/or counseling patient: Coding Level of Care Code 53582 SUB INP/OBS CARE 3/50MIN Diagnoses Atrial fibrillation with RVR I48.91 CAD, multiple vessel I25.10 Primary hypertension I10 Hypertension type: primary hypertension Dyslipidemia E78.5 (3) HTN (hypertension) Hypertension type: primary hypertension Qualified Code(s): I10 - Essential (primary) hypertension
[2023-08-14] MEDS: CHOLECALCIFEROL 5,000 UNITS 125 MCG TAB PO SCH (09:33)
[2023-08-14 10:02] LABS: Marijuana Quant, GCMS Urine 526 ng/mL (<5)
--- NOTE | 2023-08-14 11:52 | Psychiatric Progress Note ---
Date of Service August 14, 2023 Impression / Recommendations Impression 62 yo man with long hx of chronic intermittent SI, possibly due to childhood trauma/PTSD component versus from personality traits, anxiety and now worsening depression in the context of homelessness with suicide attempt via overdose now medically stable. Diagnostically consistent with unspecified depressive disorder likely combination of worsened depression due to psychosocial stressor of lack of housing. 08/14/2023: Plan for inpatient psychiatric admission on [facility] pending negative COVID test. Overall, I spent a total of 35 minutes with this case including review of chart records, review of labwork, direct evaluation of the patient at bedside, counseling the patient, discussion of the patient with the Nurse and with the hospitalist provider, discussion with the psychiatric liason during clinical rou nds and documentation in the electronic health record. (1) Suicide attempt by drug overdose: (2) Trauma and stressor-related disorder: (3) Depression: (4) Anxiety disorder, unspecified: Plan -Now medically stable, plan for [facility] admission pending negative COVID test -Continue 1-on-1 for risk of harm to self -Do not discharge or allow to leave AMA, would meet 302 criteria -Hold psych medications for now Interval History Identifying Information 62 yo man who who is currently homeless with a history of trauma, anxiety, depression with multiple prior suicide attempts and psychiatric hospitalizations admitted medically following suicide attempt via overdose of Seroquel. Psychiatry consulted for risk assessment. Chief Complaint "My heart medications were adjusted and are much better". Subjective Subjective Patient was seen & assessed and interval progress reviewed. Medically stable, agreeable to inpatient psychiatric treatment with focus on short stay to help with depression and safety planning after recent suicide attempt. Physical Exam Psychiatric Orientation: alert and oriented x 3 Apperance: appropriately dressed and appropriately groomed Eye Contact: good eye contact Motor Behavior: no abnormal motor movements Speech: normal rate/rhythm/volume of speech Affect: + constricted affect Mood: + anxious mood Thought Process: goal directed thought process Thought Content: reality based without delusions Suicidal Thoughts: denies suicidal plan and denies suicidal intent; + reports suicidal thoughts (intermittent, less today) Homicidal Thoughts: denies homicidal thoughts Hallucinations: no auditory hallucinations and no visual hallucinations Cognition: attention grossly intact and language grossly intact Estimated Intelligence: consistent with education level Insight: + limited insight Judgment: + limited judgement Vital Signs (Past 24 Hours) Last Vital Signs Temp 36.9 C 08/14/23 07:24 Pulse 68 08/14/23 07:24 Resp 20 08/14/23 07:24 BP 152/106 H 08/14/23 07:24 Pulse Ox 94 08/14/23 07:24 O2 Del Method Room Air 08/14/23 07:24 Results & Data ([facility]) Laboratory Results Laboratory Results - last 24 hr 08/10/23 08/14/23 Unknown 07:30 Sodium 135 L Potassium 4.2 Chloride 102 Carbon Dioxide 29 Anion Gap 4 BUN 11 Creatinine 0.94 Est Cr Clr Drug Dosing 86.8 Est GFR ( Amer) 100.3 Est GFR (Non-Af Amer) 86.5 BUN/Creatinine Ratio 11.7 Glucose 87 Calcium 9.0 Phosphorus 3.4 Magnesium 1.7 U Marijuana THC Carboxy 526 H Drug Screen Comment SEE NOTE Current Inpatient Medications Current Inpatient Medications: Current Inpatient Medications Acetaminophen (Acetaminophen 500 Mg Tab) 1,000 mg PO Q8H [facility] Stop: 09/10/23 15:59 Last Admin: 08/14/23 08:13 Dose: 1,000 mg Atorvastatin Calcium (Atorvastatin 40 Mg Tab) 40 mg PO [facility] Stop: 09/10/23 08:59 Last Admin: 08/14/23 08:12 Dose: 40 mg Calcium/Vitamin D (Calcium 600mg + Vit D 400 Iu Tab) 1 tab PO BID [facility] Stop: 09/10/23 20:59 Last Admin: 08/14/23 08:11 Dose: 1 tab Diazepam (Diazepam 5 Mg Tablet) 10 mg PO [facility] Stop: 09/10/23 20:59 Last Admin: 08/13/23 20:02 Dose: 10 mg Diclofenac Sodium (Diclofenac Sod 1% Gel 100 Gm Tube) 2 gm EXT QID [facility]; Protocol Stop: 09/10/23 16:59 Last Admin: 08/14/23 08:13 Dose: 2 gm Escitalopram Oxalate (Escitalopram Oxalate 10 Mg Tab) 15 mg PO [facility] Stop: 09/10/23 08:59 Last Admin: 08/14/23 08:12 Dose: 15 mg Folic Acid (Folic Acid 1 Mg Tab) 1 mg PO [facility] Stop: 09/10/23 10:14 Last Admin: 08/14/23 08:12 Dose: 1 mg Lisinopril (Lisinopril 10 Mg Tab) 10 mg PO [facility] Stop: 09/11/23 17:44 Last Admin: 08/14/23 08:12 Dose: 10 mg Metoprolol Succinate (Metoprolol Succ 50mg Ext Rel Tab) [facility] [place]: 09/13/23 08:59 Last Admin: 08/14/23 08:12 Dose: 50 mg Metoprolol Tartrate (Metoprolol Tartrate 1 Mg/Ml Vial) 5 mg IV Q4H PRN PRN Reason: HR >110 with afib Stop: 09/10/23 00:47 Nitroglycerin (Nitroglycerin Sl 0.4 Mg/Tab Tab) 0.4 mg SL Q5M PRN PRN Reason: Chest Pain Stop: 09/10/23 00:47 Pantoprazole Sodium (Pantoprazole 40 Mg Tab) 40 mg PO [facility] Stop: 09/10/23 08:59 Last Admin: 08/14/23 08:12 Dose: 40 mg Rivaroxaban (Rivaroxaban 20 Mg Tab) 20 mg PO QDD [facility] Stop: 09/10/23 20:59 Last Admin: 08/13/23 16:13 Dose: 20 mg Thiamine HCl (Thiamine Hcl 100 Mg Tab) 100 mg PO [facility] Stop: 09/10/23 10:14 Last Admin: 08/14/23 08:12 Dose: 100 mg Vitamin D (Cholecalciferol 5,000 Units 125 Mcg Tab) 5,000 units PO [facility] Stop: 09/10/23 16:14 Last Admin: 08/14/23 09:33 Dose: 5,000 units
--- NOTE | 2023-08-14 12:26 | Discharge Summary ---
Date of Service August 14, 2023 Admission HPI Per Admitting Provider Timmy is a 62-year-old male with PMH of suicidal ideations, CAD s/p CABG x3, bipolar disorder, GERD, dyslipidemia, anxiety, depression, HTN, and A-fib. He presented via EMS following an intentional overdose at 1740 on 08/10 of Seroquel 1800 mg. Patient is somnolent, lethargic, snoring and does not respond to questioning. Hx of suicidal ideations; [facility] admssion 10/2022. Patient is reportedly homeless. EKG en route showed atrial fibrillation with RVR in the 140bpms. Patient exhibited tachycardia peaking at 143 bpm in the ED; other vitals stable at time of admission. ED course: Diltiazem 125 mg IV, IVF ROS: Unable to to obtain as patient is sleeping, unresponsive Please see Dr. Esquivel's attestation for any changes to treatment plan. Principal Diagnosis intentional overdose Discharge Exam General: Awakes to voice, no acute distress HEENT: normocephalic, atraumatic; MMM Neck: supple; trachea midline Skin: warm, no cyanosis CV: RRR; S1/S2 normal; no murmurs/rubs/gallops; clinically well perfused Lungs: no acute respiratory distress; CTAB no wheezing ABD: no distention MSK: no tics or fasciculations; no edema noted in the LEs b/l Neuro: alert and oriented Psych: poor eye contact Discharge Data Allergies Allergy/AdvReac Type Severity Reaction Status Date / Time haloperidol [From Haldol] AdvReac Intermediate muscle Verified 08/02/23 08:56 cramping Consultations 08/10/23 21:38 ED Decision to Admit Stat 08/11/23 00:48 Consult Psychiatry Routine 08/11/23 16:10 Consult Orthopedic Surgery Routine 08/12/23 09:05 Consult Cardiology Routine Ordered Studies Head CT 08/10/23 18:26 FINDINGS: No acute intracranial hemorrhage. No midline shift or mass effect. The territorial perea-white matter differentiation is maintained throughout. Age-related cerebral volume loss. Periventricular and subcortical white matter hypoattenuation, consistent with chronic microangiopathy. The visualized orbits appear grossly unremarkable. The calvarium is intact. The visualized paranasal sinuses and mastoid air cells are grossly clear. IMPRESSION: No acute intracranial hemorrhage, midline shift, or mass effect. Chest X-Ray 08/10/23 18:27 FINDINGS: Median sternotomy wires are unchanged. Cardiomegaly is noted. The aortic arch is calcified. The lungs are clear. No evidence of pleural effusion or pneumothorax. IMPRESSION: No acute chest disease. Cardiomegaly is noted. Hospital Course (1) Suicide attempt by drug overdose: #Intentional Drug Overdose #Chronic intermittent SI, possibly due to childhood trauma/PTSD component versus from personality traits, anxiety and now worsening depression Patient reportedly physically [facility] from [facility] after using a racial slur. Took ~1800 mg Seroquel 08/10 with intent to as he was unhoused with no where to go. Regretted his actions. Tox screen + marijuana, negative for EtOH, salicylates, acetaminophen. CXR and Head CT - no acute findings. Patient now stable from a medical standpoint and amenable to going to [facility] #Malnutrition #Dehydration Patient malnourished and osteopenic. Started thiamine, folate, vit D, and calcium. Monitored electrolyte closely - Mg, Phos, K. Fluid status significantly improved. Tolerating PO. Continue with vitamin supplementation with multivitamin, vitamin D, and calcium. #A fib with RVR - resolved; followed by Bradycardia with Pauses A fib with RVR likely in the setting of acute overdose and dehydration. TSH WNL Converted to NSR with dilt drip. Continue home anticoagulation. Frequent pauses, longest 3.1 seconds. Electrolytes Normal. Cardiology consulted - Decreased metoprolol to 50 mg QD (from bid dose) HR improved. Will f/u with cards in about a month. #HTN BP consistently elevated - increase lisinopril to 20mgs 08/14 (home dose 10mgs). #Right Finger Fracture Patient reportedly fell when removed from the [facility] been living at. He injured his right wrist at this time. Probable proximal 5th digit fracture. Ortho recommend kaiser tape. #Piriformis Syndrome, Left Side OMT while inpatient. Voltaren gel. Received Diazepam 10 mg QHS for muscle relaxant properties. Tylenol 1 g Q8H scheduled. To d/c diazepam on discharge to psych unit. (2) Atrial fibrillation with RVR: (3) Hypokalemia: (4) Depression: (5) CAD, multiple vessel: (6) Bipolar disorder: (7) Anxiety disorder, unspecified: (8) GERD (gastroesophageal reflux disease): (9) HTN (hypertension): Total Time Total Time Spent Total Time Spent (In Minutes): See attending attestation Discharge Plan Discharge Items Patient Disposition: Transfer Behavioral Health Fac Reason For Visit: OVERDOSE (INTENTIONAL) Discharge Diagnosis: intentional overdose Activity: Per Instructions section Non-emergency contact: Primary Care Provider Call non-emergency contact if: you have any medication questions Follow-up/Referrals: Riley Ernst DO [Primary Care Provider] - Diet: Heart Healthy Addtl Attending Provider Instructions: #Intentional Drug Overdose #Suicidal Ideations #Depression #History of Suicide Attempts Patient reportedly physically removed from [facility] after using a racial slur. Took ~1800 mg Seroquel 08/10 with intent to as he was unhoused with no where to go. Regretted his actions. Tox screen + marijuana, negative for EtOH, salicylates, acetaminophen. CXR and Head CT - no acute findings. Patient now stable from a medical standpoint and amenable to going to the [facility]. Would defer to psychiatric team on medication resumption/dosing. #Malnutrition #Dehydration Patient malnourished and osteopenic. Start thiamine, folate, vit D, and calcium. Monitor refeeding labs - Mg, Phos, K. Fluid status significantly improved. Tolerating PO. Continue with vitamin supplementation with multivitamin, vitamin D, and calcium. #A fib with RVR #Pauses EKG showed a fib with RVR likely in the setting of acute overdose and dehydration. Now in NSR after dilt drip. Unclear on timing of last dose of Xarelto so Lovenox was given on admission. Continue home anticoagulation. TSH WNL. Hold lisinopril for now can restart if persistently hypertensive. Patient with frequent pauses, longest 3.1 seconds. Electrolytes without significant abnormality. EKG without obvious heart block or Mobitz II. Tele reviewed - non- diagnostic. May need eval for pacer. Cardiology consult - appreciate recs. Decreased metoprolol to 50 mg QD. HR improved. #Right Finger Fracture Patient reportedly fell when removed from the [facility] been living at. He injured his right wrist at this time. Probable proximal 5th digit fracture. Ortho recommend kaiser tape. #Piriformis Syndrome, Left Side OMT while inpatient. Voltaren gel. Diazepam 10 mg QHS for muscle relaxant pro perties. Tylenol 1 g Q8H scheduled. Mag load 10 mEq x4 bags. Replete as indicated. Pending Studies at Discharge: No Stand-Alone Forms: My [facility] Medications and DC Order Prescriptions: New metoprolol succinate 50 mg Tablet Extended Release 24 Hr 50 mg PO QAM Qty: 30 0RF thiamine HCl (vitamin B1) 100 mg Tablet 100 mg PO QAM Qty: 30 0RF folic acid 1 mg Tablet 1 mg PO QAM Qty: 30 0RF diclofenac sodium [Voltaren Arthritis Pain] 1 % Gel 2 g EXT QID Qty: 25 0RF cholecalciferol (vitamin D3) 125 mcg (5,000 unit) Tablet 5,000 unit PO QAM Qty: 30 0RF Caltrate 600-D Plus Minerals 600 mg calcium- 800 unit-50 mg Tablet 1 tab PO BID Qty: 30 0RF lisinopril 20 mg Tablet 20 mg PO QAM Qty: 30 0RF Continued nitroglycerin 0.4 mg tablet, sublingual 0.4 mg sublingual Q5M PRN (Reason: Chest Pain) Rx Instructions: do not exceed 3 doses per episode pantoprazole 40 mg tablet,delayed release (DR/EC) See Rx Instructions .ROUTE .COMPLEX Qty: 30 2RF Dose Instruction: TAKE 1 TABLET BY MOUTH EVERY DAY Rx Instructions: TAKE 1 TABLET BY MOUTH EVERY MORNING quetiapine [Seroquel] 300 mg tablet 300 mg PO HS Qty: 30 2RF atorvastatin 40 mg tablet 40 mg PO QAM escitalopram oxalate 10 mg tablet 15 mg PO QAM Rx Instructions: TAKE 1 & 1/2 TABLETS BY MOUTH EVERY MORNING Xarelto 20 mg tablet 20 mg PO QPM Rx Instructions: TAKE 1 TABLET ORALLY DAILY FOR 30 DAYS MUST ADMINISTER WITH EVENING MEAL Medical Marijuana 1 dose inhalation UD Discontinued metoprolol tartrate 50 mg tablet 50 mg PO BID 90 Days Qty: 60 2RF lisinopril 10 mg tablet 10 mg PO QAM Rx Instructions: TAKE 1 TABLET BY MOUTH EVERY QAM Discharge Orders: Discharge Order (Routine); Ordered 08/14/23 Ordered By: Vicki Ingram Admission Data Admit Date/Time: 08/10/23 22:27 Attending Provider: Radha Pillai Admit Provider: Ziggy Esquivel Primary Care Provider: Riley Ernst Other Providers: Ziggy Esquivel; Blossom Vanessa; Henny Kwong; Arjun Thomas; Brett Dickinson; Eliceo Chao; Jean Abdi; William Woodard; Suman Eldridge; Amilcar Nieves; Jose Hartley Jr; Alejandro Ruvalcaba; Latoya Castellano; Ngoc Dowd; Serafin Zhang; Serafin Gupta; Juan Ramon Garcia; Mary Alice Perez; Sofy Smith; Earl Jones; Tree Ventura; Suman Saleem V.; Bob Villanueva; Kimo Wynne Supervising Physician Co-Signing Physician Notes Resident Physician Supervision Note: I independently interviewed and examined the patient and verified the byrnes history and physical, reviewed labs and image studies and agree with resident findings and care plan. Resident Activity Tracking Resident Involvement: Resident Care Provided Care Provided: Adult [facility] Medicine
[2023-08-14] MEDS ORDERED: lisinopril 20 MG TAB PO SCH (16:00)
== END 2023-08-14 16:25 | DRG 918 ==
LOC: ED 18:21 → SUATTDRO 22:27 → EDINP 22:27 → 2E 08-11 00:49

== ENCOUNTER 2023-08-14 14:44 | Inpatient (IN) ==
[2023-08-14] MEDS ORDERED: hydrOXYzine HCl 25 MG TAB PO PRN (14:52)
[2023-08-14] MEDS ORDERED: ALUMINUM/MAGNESIUM SUSP 30 ML UDC PO PRN (14:52)
[2023-08-14] MEDS ORDERED: SODIUM CHLORIDE 0.65% NA SOLN 45 ML (OCEAN) PRN (14:52)
[2023-08-14] MEDS ORDERED: BISMUTH SUBSALICYLATE LIQD 236 ML PO PRN (14:52)
[2023-08-14] MEDS ORDERED: MAGNESIUM HYDROXIDE SUSP 30 ML UDC PO PRN (14:52)
[2023-08-14] MEDS ORDERED: NITROGLYCERIN SL 0.4 MG/TAB TAB SL PRN (17:19)
[2023-08-14] MEDS ORDERED: NICOTINE POLACRILEX 2 MG GUM MT PRN (17:36)
[2023-08-14] MEDS: PANTOprazole 40 MG TAB PO SCH (19:07)
[2023-08-14] MEDS: RIVAROXABAN 20 MG TAB PO SCH (19:07)
[2023-08-14] MEDS: DICLOFENAC SOD 1% GEL 100 GM TUBE EXT SCH (21:27)
[2023-08-14] MEDS: CALCIUM 600MG + VIT D 400 IU TAB PO SCH (21:27)
[2023-08-14] MEDS ORDERED: diazePAM 5 MG TABLET PO SCH (22:00)
[2023-08-15] MEDS: hydrOXYzine HCl 25 MG TAB PO PRN (01:00)
[2023-08-15] MEDS: CALCIUM 600MG + VIT D 400 IU TAB PO SCH ×2 (08:33→20:49)
[2023-08-15] MEDS: ATORVASTATIN 40 MG TAB PO SCH (08:33)
[2023-08-15] MEDS: DICLOFENAC SOD 1% GEL 100 GM TUBE EXT SCH ×4 (08:34→20:50)
[2023-08-15] MEDS: CHOLECALCIFEROL 5,000 UNITS 125 MCG TAB PO SCH (08:34)
[2023-08-15] MEDS: ESCITALOPRAM OXALATE 10 MG TAB PO SCH (08:35)
--- NOTE | 2023-08-15 08:35 | History & Physical ---
Date of Service August 15, 2023 Impression / Recommendations Impression 62 yo man with long history of chronic intermittent SI, possibly due to childhood trauma/PTSD component versus from cluster B personality traits, anxiety, worsening depression, multiple prior psychiatric hospitalizations (he estimates >100 over the last 10 years), multiple prior suicide attempts and chronic health conditions including afib with suicide attempt via overdose on Seroquel. Diagnostically consistent with unspecified depressive disorder likely combination of worsened depression due to psychosocial stressor of lack of housing and personality traits with significant externalization of blame to oth ers/difficulty taking responsibility for his actions and impulsivity. Discussed medication treatment options in detail. Discussed risks, benefits and alternatives. Patient would like to continue and consented to escitalopram for depression and anxiety as well as trial of olanzapine for mood stabilization and off-label for insomnia. Reviewed side effects including but not limited to: GI, SALAZAR, sexual side effects with escitalopram as well as movement (TD, NMS), cardiac (QTc prolongation), and metabolic (stroke, insulin resistance) and necessity for fasting lipid and glucose labwork and AIMS done with score of 0. MNPR due to history of aggression, verbal insults Overall I spent a total of 75 minutes for this admission including review of chart records, review of labwork, direct evaluation of the patient, counseling the patient, ordering medication, risk assessment, discussion with the psychiatric liason RN and treatment team and documentation in the electronic health record. (1) Suicide attempt by drug overdose: (2) Depression, unspecified: Depression Type: reactive depression Qualified Code(s): F32.9 - Major depressive disorder, single episode, unspecified (3) Cluster B personality disorder: (4) Trauma and stressor-related disorder: (5) Anxiety disorder, unspecified: Plan 08/15/2023: The patient was admitted to the [facility] ([facility]) on q15 min checks (behavioral with suicide precautions) for safety. The patient will participate in group, recreational, and milieu therapies and will be offered additional individual and family sessions as clinically appropriate. -Continue escitalopram 15mg daily -Taper to discontinue Valium started on the medical floor (tapered from 10mg to 5mg last night, will discontinue today) -Start olanzapine 5mg HS po -Discontinued Seroquel (has not gotten since the overdose) -fasting lipid panel and glucose in AM Inventory Assets Strengths: resourceful, seeks medical care when in crisis Needs: safety and stabilization, medication adjustment, additional coping skills, increased outpatient services Suicide Risk Level Suicide Risk Level: High-Moderate (q15 min suicide checks) (suicide attempt prior to admission but feels safe in the hospital, mood starting to improve, able to safety contract and agrees to let nursing/staff know should they develop plan, intent or feel unable to remain safe.) Suicide Risk Level Comments: Risk Factors Assessment Male: Yes : Yes Do You Have Access To A Gun?: No Health Problems: Yes Mental Health Diagnoses: Yes Previous Attempt: Yes Family History of Suicide: No Previous Psychiatric Hospitalization: Yes Protective Factors Assessment : No Responsible for Young Children: No Employed: No Stable Relationships: No Supportive Family: No Psychiatric History Identifying Data PALUY THORNTON is a 62-year-old man who is currently homeless, has a history of chronic intermittent SI, childhood trauma/PTSD, likely cluster B personality disorder, anxiety, depression and reports history of various other diagnoses over time including bipolar disorder or schizophrenia (but denies history of psychosis), and was admitted on 08/14/23 16:25 on a 201 voluntary commitment for suicide attempt via overdose of Seroquel 1,800mg. Chief Complaint "They had me upset". History of Present Illness Pauly was admitted medically following a suicide attempt via overdose of Seroquel 1,800mg in the context of psychosocial stressors particularly being kicked out of his local [place] [facility], [facility], after making a racial slur to another resident there. Following medical stability in noted some improvement in his mood but still with periods of SI related to his homelessness noting "when all is said and done I'm going to be back on the street". Describes his suicide attempt occurring the context of feeling "betrayed" by the spooling supervisor at [facility] when he was asked to leave and "embarrassment" from an event earlier that day when he tried to buy some medical marijuana paraphernalia and his account was overdrawn and again when he had to "stand on the side of the street with all of my stuff". He remains very frustrated by a peer at the [facility] and feels they are to blame for his departure. He has been struggling with insomnia, found the Valium he got the medical floor to be very helpful. He is currently prescribed psychiatric medications of Seroquel 300mg po HS and escitalopram 15mg daily. Psychiatric ROS notable for no current nor history of symptoms of beatriz nor psychosis. Past Psychiatric History Current Psychiatric Diagnosis: Unspecified depressive disorder Outpatient Services: [facility], rep MAYDA chung Previous Psych Admissions: many-he reports >100 times over the last 10 years most recently hospitalized In [place] in September 2023 Reports most hospitalizations occurred in [place] via [facility] Do You Have Access To A Gun?: No History of Previous Suicide Attempt: Yes (5 times) Describe Attempts in the Past: via overdose, 2021 via 900 mg of Seroquel prior to most recent attempt Past Medication Trials: multiple he cannot recall all of them, reported EPS side effects from haldol trial Past Head Trauma/Neuro History History of Concussion/Seizure: No Allergies Allergy/AdvReac Type Severity Reaction Status Date / Time haloperidol [From Haldol] AdvReac Intermediate muscle Verified 08/02/23 08:56 cramping Home Medications Medication Instructions Recorded Confirmed Type nitroglycerin 0.4 mg sublingual 0.4 mg sublingual Q5M PRN Chest 12/23/22 08/10/23 History tablet Pain Medical Marijuana 1 dose inhalation UD 02/02/23 08/10/23 History atorvastatin 40 mg tablet 40 mg PO QAM 07/11/23 08/10/23 History pantoprazole 40 mg tablet,delayed See Rx Instructions .Route 07/17/23 08/10/23 Rx release .COMPLEX #30 tabs quetiapine 300 mg tablet (Seroquel) 300 mg PO HS #30 tabs 07/17/23 08/10/23 Rx escitalopram oxalate 10 mg tablet 15 mg PO QAM 08/10/23 08/10/23 History rivaroxaban 20 mg tablet (Xarelto) 20 mg PO QPM 08/10/23 08/10/23 History calcium 600 mg-D3 800 unit-mag11 1 tab PO BID #30 tabs 08/14/23 Rx 50 ti-wsqo-twbuhu-irvin-s.borat tablet (Caltrate 600-D Plus Minerals) cholecalciferol (vitamin D3) 125 5,000 unit PO QAM #30 tabs 08/14/23 Rx mcg (5,000 unit) tablet diclofenac sodium 1 % topical gel 2 g EXT QID #25 grams 08/14/23 Rx (Voltaren Arthritis Pain) folic acid 1 mg tablet 1 mg PO QAM #30 tabs 08/14/23 Rx lisinopril 20 mg tablet 20 mg PO QAM #30 tabs 08/14/23 Rx metoprolol succinate 50 mg 50 mg PO QAM #30 tabs 08/14/23 Rx tablet,extended release 24 hr thiamine HCl (vitamin B1) 100 mg 100 mg PO QAM #30 tabs 08/14/23 Rx tablet Family History Family History of: Doesn't Know Alcohol History Hx of Alcohol Use Over the Past 12 Months: No AUDIT Total Score: 0 Smoking Use Have You Smoked or Used Tobacco Products in the Last 30 Days: Yes tobacco type: cigarettes Smoking Status: Current every day smoker Smoking packs per day: 20 Substance History Hx of Prescription Med Misuse Over the Past 12 Months: Yes (seroquel OD 08/10/23) Hx of Over the Counter Med Misuse Over the Past 12 Months: No Hx of Inhalent Misuse Over the Past 12 Months: No Hx of Organic Substance Use Over the Past 12 Months: No Hx of Illegal Substances/Street Drug Use Over Past 12 Months: No Problems as a Result of Past Substance Use: None Identified Uses medical marijuana for anxiety/depression/pain Personal History Living Arrangements: Homeless Employment Status: Disabled Marital Status: Single Beliefs That Will Affect Care: None Current Legal Problems: Yes (on parole for bike theft ) Hx Legal Problems: Yes Hx Traumatic Life Events: Yes Patient History Medical History Medical marijuana use [facility] [place] [facility] History of COVID-19 11/2022- home test [place] [facility] [place] [facility]- no symptoms Seasonal allergies COPD (chronic obstructive pulmonary disease) Hx of myocardial infarction 2013 Poor historian Dyslipidemia Depression GERD (gastroesophageal reflux disease) Trauma and stressor-related disorder Anxiety disorder, unspecified HTN (hypertension) Atrial fibrillation managed w/ xarelto- unsure who cardio is Surgical History Hx of colonoscopy History of open reduction and internal fixation (ORIF) procedure elbow Hx of cardiac catheterization x2 stents - unsure when; sometime after 2013 in [place], [place] S/P CABG x 3 2014- unsure who cardio is- done in [place], [place] Family History Mother Cancer Myocardial infarction Ovarian cancer Father Prostate cancer Myocardial infarction Denies family history of Diabetes Breast cancer Lung cancer Colorectal cancer Stroke Social History Smoking Status: Current every day smoker Tobacco Type: Cigarettes packs per day: 1; Cigarettes Per Day: 20; Second Hand Exposure: Yes; Do You Dip or Chew Tobacco: No; Hx Alcohol Use: No Hx Substance Use: Yes Prescribed Medications: Marijuana Last Used Substance: Unknown Substance Use Type Other:: medical marijuana Preferred Language: Thai Communication Ability: Effective Visual Impairment: Diminished Hearing Ability: Normal Manager [employer] Required: No Beliefs That Will Affect Care: None marital status: Single Current Living Situation: Other Current Living Situation Comment: [facility] current occupational status: disabled How many Children do You have: 0 Feels Safe at Home: Yes Childhood Exposure to Second-Hand Smoke: Yes caffeine: Yes Dental Care, Regularly: No Physical Activity Frequency: Daily Seatbelt Use: always Sunscreen Use: Yes Gender Identity: Male Assistive Devices: Denture - Upper, Denture - Lower and Glasses Review of Systems Review of Systems: All systems reviewed & are unremarkable except as noted in HPI & below Physical Exam Psychiatric: Orientation: alert and oriented x 3 Apperance: appropriately dressed and appropriately groomed Eye Contact: + fair eye contact Motor Behavior: no abnormal motor movements (but does have significant posture issues) Speech: normal rate/rhythm/volume of speech Affect: + labile affect Mood: + depressed mood and + anxious mood Thought Process: + circumstantial thought process Thought Content: reality based without delusions Suicidal Thoughts: denies suicidal intent; + reports suicidal thoughts (intermittent) and + reports suicidal plan (none for in the hospital, s/p attempt) Homicidal Thoughts: denies homicidal thoughts Hallucinations: no auditory hallucinations and no visual hallucinations Cognition: recent memory grossly intact, remote memory grossly intact, attention grossly intact and language grossly intact Estimated Intelligence: consistent with education level Insight: + limited insight Judgment: + limited judgement Vital Signs (Past 24 Hours): Last Vital Signs Temp 36.6 C 08/15/23 06:58 Pulse 75 08/15/23 07:00 Resp 16 08/15/23 06:58 BP 142/109 H 08/15/23 07:00 Pulse Ox 98 08/14/23 16:55 O2 Del Method Room Air 08/14/23 16:55 Exam Statement: A physical exam was performed on the medical floor by Dr. Pillai for the purposes of medical clearance. I accept that physical as correct and adequate for the purposes of the inpatient physical exam. Results & Data ([facility]) Current Inpatient Medications Current Inpatient Medications: Current Inpatient Medications Acetaminophen (Acetaminophen 325 Mg Tab) 650 mg PO Q4H PRN PRN Reason: Headache or Minor Fever Stop: 09/13/23 14:51 Al Hydrox/Mg Hydrox/Simethicone (Aluminum/Magnesium Susp 30 Ml Udc) 30 ml PO Q4H PRN PRN Reason: GI Upset Stop: 09/13/23 14:51 Atorvastatin Calcium (Atorvastatin 40 Mg Tab) 40 mg PO QAM [facility]EN[facility] Stop: 09/14/23 08:59 Bismuth Subsalicylate (Bismuth Subsalicylate Liqd 236 Ml) 15 ml PO PRN PRN PRN Reason: Loose Stool Stop: 09/13/23 14:51 Calcium/Vitamin D (Calcium 600mg + Vit D 400 Iu Tab) 1 tab PO BID KENIA Stop: 09/13/23 20:59 Last Admin: 08/14/23 21:27 Dose: 1 tab Diazepam (Diazepam 5 Mg Tablet) 5 mg PO HS KENIA Stop: 09/13/23 21:59 Last Admin: 08/14/23 21:26 Dose: 5 mg Diclofenac Sodium (Diclofenac Sod 1% Gel 100 Gm Tube) 2 gm EXT QID KENIA; Protocol Stop: 09/13/23 20:59 Last Admin: 08/14/23 21:27 Dose: 2 gm Escitalopram Oxalate (Escitalopram Oxalate 10 Mg Tab) 15 mg PO QAM KEN[facility] Stop: 09/14/23 08:59 Folic Acid (Folic Acid 1 Mg Tab) 1 mg PO QAM KENIA Stop: 09/14/23 08:59 Hydroxyzine HCl (Hydroxyzine Hcl 25 Mg Tab) 50 mg PO HSZ PRN PRN Reason: Insomnia Stop: 09/13/23 14:51 Last Admin: 08/15/23 01:00 Dose: 50 mg Hydroxyzine HCl (Hydroxyzine Hcl 25 Mg Tab) 25 mg PO Q4H PRN PRN Reason: Anxiety Stop: 09/13/23 14:51 Lisinopril (Lisinopril 20 Mg Tab) 20 mg PO QAM KENIA Stop: 09/14/23 08:59 Magnesium Hydroxide (Magnesium Hydroxide Susp 30 Ml Udc) 30 ml PO DAILY PRN PRN Reason: Constipation Stop: 09/13/23 14:51 Metoprolol Succinate (Metoprolol Succ 50mg Ext Rel Tab) 50 mg PO QAM [facility] Stop: 09/14/23 08:59 Miscellaneous (Remove Nicoderm Patch) 1 each N/A DAILY@0859 [facility] Stop: 09/14/23 08:58 Nicotine (Nicotine 21 Mg/24 Hr Tdsy) 21 mg TD QAM [facility] Stop: 09/14/23 08:59 Nicotine Polacrilex (Nicotine Polacrilex 2 Mg Gum) 2 piece MT PRN PRN PRN Reason: tobacco withdrawal Stop: 09/13/23 17:35 Nitroglycerin (Nitroglycerin Sl 0.4 Mg/Tab Tab) 0.4 mg SL Q5M PRN PRN Reason: Chest Pain Stop: 09/13/23 17:18 Pantoprazole Sodium (Pantoprazole 40 Mg Tab) 40 mg PO DAILY [facility] Stop: 09/13/23 17:59 Last Admin: 08/14/23 19:07 Dose: 40 mg Rivaroxaban (Rivaroxaban 20 Mg Tab) 20 mg PO QDD [facility] Stop: 09/13/23 17:44 Last Admin: 08/14/23 19:07 Dose: 20 mg Sodium Chloride (Sodium Chloride 0.65% Na Soln 45 Ml ([place])) 1 - 2 sprays NA PRN PRN PRN Reason: Nasal Dryness/Congestion Stop: 09/13/23 14:51 Thiamine HCl ([facility] Hcl 100 Mg Tab) [facility] Stop: 09/14/23 08:59 Vitamin D (Cholecalciferol 5,000 Units 125 Mcg Tab) 5,000 units [facility] Stop: 09/14/23 08:59
[2023-08-15] MEDS: lisinopril 20 MG TAB PO SCH (08:36)
[2023-08-15] MEDS: FOLIC ACID 1 MG TAB PO SCH (08:36)
[2023-08-15] MEDS: METOPROLOL SUCC 50MG EXT REL TAB PO SCH (08:37)
[2023-08-15] MEDS: PANTOprazole 40 MG TAB PO SCH (08:37)
[2023-08-15] MEDS: THIAMINE HCL 100 MG TAB PO SCH (08:37)
[2023-08-15] MEDS: NICOTINE 21 MG/24 HR TDSY TD SCH (08:37)
[2023-08-15] MEDS: RIVAROXABAN 20 MG TAB PO SCH (17:29)
[2023-08-15] MEDS ORDERED: OLANZapine 5 MG TABLET PO SCH (22:00)
[2023-08-16] MEDS: hydrOXYzine HCl 25 MG TAB PO PRN (02:56)
[2023-08-16 08:56] LABS: Chol HDL Ratio 3.5 (0-5)
[2023-08-16] MEDS: CALCIUM 600MG + VIT D 400 IU TAB PO SCH ×2 (09:14→21:34)
[2023-08-16] MEDS: ATORVASTATIN 40 MG TAB PO SCH (09:14)
[2023-08-16] MEDS: CHOLECALCIFEROL 5,000 UNITS 125 MCG TAB PO SCH (09:14)
[2023-08-16] MEDS: FOLIC ACID 1 MG TAB PO SCH (09:15)
[2023-08-16] MEDS: ESCITALOPRAM OXALATE 10 MG TAB PO SCH (09:15)
[2023-08-16] MEDS: lisinopril 20 MG TAB PO SCH (09:16)
[2023-08-16] MEDS: METOPROLOL SUCC 50MG EXT REL TAB PO SCH (09:17)
[2023-08-16] MEDS: PANTOprazole 40 MG TAB PO SCH (09:17)
[2023-08-16] MEDS: THIAMINE HCL 100 MG TAB PO SCH (09:18)
[2023-08-16] MEDS: NICOTINE 21 MG/24 HR TDSY TD SCH (09:24)
--- NOTE | 2023-08-16 09:26 | Psychiatric Progress Note ---
Date of Service August 16, 2023 Impression / Recommendations Impression 62 yo man with long history of chronic intermittent SI, possibly due to childhood trauma/PTSD component versus from cluster B personality traits, anxiety, worsening depression, multiple prior psychiatric hospitalizations (he estimates >100 over the last 10 years), multiple prior suicide attempts and chronic health conditions including afib with suicide attempt via overdose on Seroquel. Diagnostically consistent with unspecified depressive disorder likely combination of worsened depression due to psychosocial stressor of lack of housing and personality traits with significant externalization of blame to oth ers/difficulty taking responsibility for his actions and impulsivity. MNPR due to history of aggression, verbal insults 08/16/2023: Mood remains variable but more engaged with groups today and denies SI. Did not sleep well with transition to olanzapine, reviewed option to try higher dose for mood stabilization and insomnia and he consents to this. fasting labwork reviewed and notable for normal glucose and normal fasting lipid panel which is reassuring in setting of use of olanzapine. Overall, I spent a total of 25 minutes with this case including review of chart records, direct evaluation of the patient at bedside, counseling the patient, discussion during interdisciplinary treatment rounds, risk assessment, ordering medication, and documentation in the electronic health record. (1) Suicide attempt by drug overdose: (2) Depression, unspecified: (3) Cluster B personality disorder: (4) Trauma and stressor-related disorder: (5) Anxiety disorder, unspecified: Plan 08/16/2023: * Increase olanzapine to 10mg HS po * Continue escitalopram 15mg daily 08/15/2023: The patient was admitted to the [facility] ([facility] mental health unit) on q15 min checks (behavioral with suicide precautions) for safety. The patient will participate in group, recreational, and milieu therapies and will be offered additional individual and family sessions as clinically appropriate. -Continue escitalopram 15mg daily -Taper to discontinue Valium started on the medical floor (tapered from 10mg to 5mg last night, will discontinue today) -Start olanzapine 5mg HS po -Discontinued Seroquel (has not gotten since the overdose) -fasting lipid panel and glucose in AM Inventory Assets Strengths: resourceful, seeks medical care when in crisis Needs: safety and stabilization, medication adjustment, additional coping skills, increased outpatient services Suicide Risk Level Suicide Risk Level: Moderate (q15 min suicide checks) (suicide attempt prior to admission but feels safe in the hospital, mood starting to improve, denies SI today, and is able to safety contract and agrees to let nursing/staff know should they develop plan, intent or feel unable to remain safe.) Suicide Risk Level Comments: Risk Factors Assessment Male: Yes : Yes Do You Have Access To A Gun?: No Health Problems: Yes Mental Health Diagnoses: Yes Previous Attempt: Yes Family History of Suicide: No Previous Psychiatric Hospitalization: Yes Protective Factors Assessment : No Responsible for Young Children: No Employed: No Stable Relationships: No Supportive Family: No Interval History Identifying Information PAULY THORNTON is a 62-year-old man who is currently homeless, has a history of chronic intermittent SI, childhood trauma/PTSD, likely cluster B personality disorder, anxiety, depression and reports history of various other diagnoses over time including bipolar disorder or schizophrenia (but denies history of psychosis), and was admitted on 08/14/23 16:25 on a 201 voluntary commitment for suicide attempt via overdose of Seroquel 1,800mg. Chief Complaint "I'm ok". Review of Systems Sleep Information Total Hours of Sleep: 6.75 Sleep Comments: complained of nightmares keeping him awake Meal Information Percent Meal Consumed - Breakfast: 100 Percent Meal Consumed - Lunch: 100 Percent Meal Consumed - Dinner: 50 Subjective Subjective Patient was seen & assessed and interval progress reviewed with treatment team nursing and social work. Declined all but one group, isolative except for meals. Reported hip pain. Woke up at 3am and got a Vistaril. Today he attended most of the morning groups, was slightly dominating of the conversation and required redirection at times. Tells me his mood today is "ok". Did not sleep as well with olanzapine but found Vistaril prn very helpful for falling back to sleep. He would like to try a higher dose of olanzapine tonight. Physical Exam Psychiatric Orientation: alert and oriented x 3 Apperance: appropriately dressed and appropriately groomed Eye Contact: + fair eye contact Motor Behavior: no abnormal motor movements (but does have significant posture issues) Speech: normal rate/rhythm/volume of speech Affect: + labile affect Mood: + depressed mood and + anxious mood Thought Process: + circumstantial thought process Thought Content: reality based without delusions Suicidal Thoughts: denies suicidal intent; + reports suicidal thoughts (intermittent, denies today) and + reports suicidal plan (none for in the hospital, s/p attempt) Homicidal Thoughts: denies homicidal thoughts Hallucinations: no auditory hallucinations and no visual hallucinations Cognition: recent memory grossly intact, remote memory grossly intact, attention grossly intact and language grossly intact Estimated Intelligence: consistent with education level Insight: + limited insight Judgment: + limited judgement Vital Signs (Past 24 Hours) Last Vital Signs Temp 36.6 C 08/16/23 06:45 Pulse 78 08/16/23 06:46 Resp 16 08/16/23 06:45 BP 154/91 H 08/16/23 06:46 Pulse Ox 98 08/14/23 16:55 O2 Del Method Room Air 08/14/23 16:55 Results & Data ([facility]) Laboratory Results Laboratory Results - last 24 hr 08/16/23 07:25 Fasting Glucose 94 Triglycerides 73 Cholesterol 144 LDL Cholesterol, Calc 88 VLDL Cholesterol, Calc 15 HDL Cholesterol 41 Cholesterol/HDL Ratio 3.5 Current Inpatient Medications Current Inpatient Medications: Current Inpatient Medications Acetaminophen (Acetaminophen 325 Mg Tab) 650 mg PO Q4H PRN PRN Reason: Headache or Minor Fever Stop: 09/13/23 14:51 Al Hydrox/Mg Hydrox/Simethicone (Aluminum/Magnesium Susp 30 Ml Udc) 30 ml PO Q4H PRN PRN Reason: GI Upset Stop: 09/13/23 14:51 Atorvastatin Calcium (Atorvastatin 40 Mg Tab) 40 mg PO QAM [facility] Stop: 09/14/23 08:59 Last Admin: 08/16/23 09:14 Dose: 40 mg Bismuth Subsalicylate (Bismuth Subsalicylate Liqd 236 Ml) 15 ml PO PRN PRN PRN Reason: Loose Stool Stop: 09/13/23 14:51 Calcium/Vitamin D (Calcium 600mg + Vit D 400 Iu Tab) 1 tab PO BID [facility] Stop: 09/13/23 20:59 Last Admin: 08/16/23 09:14 Dose: 1 tab Diclofenac Sodium (Diclofenac Sod 1% Gel 100 Gm Tube) 2 gm EXT QID [facility]; Protocol Stop: 09/13/23 20:59 Last Admin: 08/15/23 20:50 Dose: 2 gm Escitalopram Oxalate (Escitalopram Oxalate 10 Mg Tab) 15 mg PO QAM [facility] Stop: 09/14/23 08:59 Last Admin: 08/16/23 09:15 Dose: 15 mg Folic Acid (Folic Acid 1 Mg Tab) 1 mg PO QAM [facility] Stop: 09/14/23 08:59 Last Admin: 08/16/23 09:15 Dose: 1 mg Hydroxyzine HCl (Hydroxyzine Hcl 25 Mg Tab) 50 mg PO HSZ PRN PRN Reason: Insomnia Stop: 09/13/23 14:51 Last Admin: 08/16/23 02:56 Dose: 50 mg Hydroxyzine HCl (Hydroxyzine Hcl 25 Mg Tab) 25 mg PO Q4H PRN PRN Reason: Anxiety Stop: 09/13/23 14:51 Lisinopril (Lisinopril 20 Mg Tab) 20 mg PO QAM [facility] Stop: 09/14/23 08:59 Last Admin: 08/16/23 09:16 Dose: 20 mg Magnesium Hydroxide (Magnesium Hydroxide Susp 30 Ml Udc) 30 ml PO DAILY PRN PRN Reason: Constipation Stop: 09/13/23 14:51 Metoprolol Succinate (Metoprolol Succ 50mg Ext Rel Tab) 50 mg PO QAM [facility] Stop: 09/14/23 08:59 Last Admin: 08/16/23 09:17 Dose: 50 mg Miscellaneous (Remove Nicoderm Patch) 1 each N/A DAILY@0859 [facility] Stop: 09/14/23 08:58 Last Admin: 08/16/23 06:59 Dose: 1 each Nicotine (Nicotine 21 Mg/24 Hr Tdsy) 21 mg TD QAM [facility] Stop: 09/14/23 08:59 Last Admin: 08/15/23 08:37 Dose: 21 mg Nicotine Polacrilex (Nicotine Polacrilex 2 Mg Gum) 2 piece MT PRN PRN PRN Reason: tobacco withdrawal Stop: 09/13/23 17:35 Nitroglycerin (Nitroglycerin Sl 0.4 Mg/Tab Tab) 0.4 mg SL Q5M PRN PRN Reason: Chest Pain Stop: 09/13/23 17:18 Olanzapine (Olanzapine 5 Mg Tablet) 5 mg PO HS [facility] Stop: 09/14/23 21:59 Last Admin: 08/15/23 20:51 Dose: 5 mg Pantoprazole Sodium (Pantoprazole 40 Mg Tab) 40 mg PO DAILY [facility] Stop: 09/13/23 17:59 Last Admin: 08/16/23 09:17 Dose: 40 mg Rivaroxaban (Rivaroxaban 20 Mg Tab) 20 mg PO QDD [facility] Stop: 09/13/23 17:44 Last Admin: 08/15/23 17:29 Dose: 20 mg Sodium Chloride (Sodium Chloride 0.65% Na Soln 45 Ml ([place])) 1 - 2 sprays NA PRN PRN PRN Reason: Nasal Dryness/Congestion Stop: 09/13/23 14:51 Thiamine HCl (Thiamine Hcl 100 Mg Tab) 100 mg PO QAM [facility] Stop: 09/14/23 08:59 Last Admin: 08/16/23 09:18 Dose: 100 mg Vitamin D (Cholecalciferol 5,000 Units 125 Mcg Tab) 5,000 units PO QAM [facility] Stop: 09/14/23 08:59 Last Admin: 08/16/23 09:14 Dose: 5,000 units Mental Health & Subst Abuse Tx Psychiatrist Name of Psychiatrist: Marnie Toledo Psychiatrist's Date Of Appointment With Psychiatric Provider: 08/22/23 Time of Appointment with Psychiatrist: 11:30 AM Psychiatric Appointment Comment: [address], [place] [address] Therapist Name of Therapist: Marnie Counseling Therapist's Date of Therapist Appointment: 10/16/22 Time of Therapist Appointment: 11:00 AM Therapy Appointment Comment: [address], [place] [address] Single Pass Soil Stabilizer Operator Name of Single Pass Soil Stabilizer Operator: Shanna Woodard Phone Number for Single Pass Soil Stabilizer Operator: [phone] Case Management Appointment Comment: Please resume your normal schedule. Post Discharge Appointments Primary Care Physician Name Of Family Doctor/PCP: DAVID Ernst Primary Care Provider Appointment Comment: [address], [address], [place] [address] Contact Information Discharge Discharge Address: N/A (2) Depression, unspecified Depression Type: reactive depression Qualified Code(s): F32.9 - Major depressive disorder, single episode, unspecified
[2023-08-16] MEDS: ACETAMINOPHEN 325 MG TAB PO PRN (10:29)
[2023-08-16] MEDS: DICLOFENAC SOD 1% GEL 100 GM TUBE EXT SCH ×4 (10:30→21:36)
[2023-08-16] MEDS: RIVAROXABAN 20 MG TAB PO SCH (17:49)
[2023-08-16] MEDS: OLANZapine 10 MG TAB PO SCH (21:35)
[2023-08-17 06:44] VITALS: O2SAT 99
--- NOTE | 2023-08-17 08:29 | Psychiatric Progress Note ---
Date of Service August 17, 2023 Impression / Recommendations Impression 62 yo man with long history of chronic intermittent SI, possibly due to childhood trauma/PTSD component versus from cluster B personality traits, anxiety, worsening depression, multiple prior psychiatric hospitalizations (he estimates >100 over the last 10 years), multiple prior suicide attempts and chronic health conditions including afib with suicide attempt via overdose on Seroquel. Diagnostically consistent with unspecified depressive disorder likely combination of worsened depression due to psychosocial stressor of lack of housing and personality traits with significant externalization of blame to oth ers/difficulty taking responsibility for his actions and impulsivity. MNPR due to history of aggression, verbal insults 08/17/2023: Mood improving, even with news that he cannot go to [facility] s[facility] program he is future-oriented. States he has been homeless for many years and reached out to his [id number] and plans to spend Thanksgiving at her home. Sleep improved with increased olanzapine dose. Overall, I spent a total of 25 minutes with this case including review of chart records, direct evaluation of the patient at bedside, counseling the patient, discussion during interdisciplinary treatment rounds, risk assessment,and documentation in the electronic health record. (1) Suicide attempt by drug overdose: (2) Depression, unspecified: (3) Cluster B personality disorder: (4) Trauma and stressor-related disorder: (5) Anxiety disorder, unspecified: Plan 08/17/2023: Continue current medications and tx plan. 08/16/2023: * Increase olanzapine to 10mg HS po * Continue escitalopram 15mg daily 08/15/2023: The patient was admitted to the [facility] ([facility] mental health unit) on q15 min checks (behavioral with suicide precautions) for safety. The patient will participate in group, recreational, and milieu therapies and will be offered additional individual and family sessions as clinically appropriate. -Continue escitalopram 15mg daily -Taper to discontinue Valium started on the medical floor (tapered from 10mg to 5mg last night, will discontinue today) -Start olanzapine 5mg HS po -Discontinued Seroquel (has not gotten since the overdose) -fasting lipid panel and glucose in AM Inventory Assets Strengths: resourceful, seeks medical care when in crisis Needs: safety and stabilization, medication adjustment, additional coping skills, increased outpatient services Suicide Risk Level Suicide Risk Level: Moderate (q15 min suicide checks) (suicide attempt prior to admission but feels safe in the hospital, mood improving, future-oriented, denies SI, and is able to safety contract and agrees to let nursing/staff know should they develop plan, intent or feel unable to remain safe.) Suicide Risk Level Comments: Risk Factors Assessment Male: Yes : Yes Do You Have Access To A Gun?: No Health Problems: Yes Mental Health Diagnoses: Yes Previous Attempt: Yes Family History of Suicide: No Previous Psychiatric Hospitalization: Yes Protective Factors Assessment : No Responsible for Young Children: No Employed: No Stable Relationships: No Supportive Family: No Interval History Identifying Information PAULY THORNTON is a 62-year-old man who is currently homeless, has a history of chronic intermittent SI, childhood trauma/PTSD, likely cluster B personality disorder, anxiety, depression and reports history of various other diagnoses over time including bipolar disorder or schizophrenia (but denies history of psychosis), and was admitted on 08/14/23 16:25 on a 201 voluntary commitment for suicide attempt via overdose of Seroquel 1,800mg. Chief Complaint "I'm feeling good, I slept really well". Review of Systems Sleep Information Total Hours of Sleep: 5.75 Sleep Comments: closer to 8 hours as he napped in the evening before bed Meal Information Percent Meal Consumed - Breakfast: 90 Percent Meal Consumed - Lunch: 0 Percent Meal Consumed - Dinner: 100 Nutrition Comment: Patient stayed in his room from noon on and refused lunch Subjective Subjective Patient was seen & assessed and interval progress reviewed with treatment team nursing and social work. Napped during the evening, no nightmares last night and likely because he took off his nicotine patch. Today reports his mood is good and that he slept well. Denies any side effects from olanzapine. He met with housing transitions but stated he felt going to their fdc would not have been a good match "because they have kids there and I wouldn't want to be at a place with children, I don't have the patience". He states "I didn't get accepted to the program but that's ok I'll go to the streets and be fine". He notes "I'm going to be fine, I always am" and describes his resiliency. He also tells me he called his [id number] who lives in [place] and plans to go to her home for Thanksgiving which he is looking forward to. Reflects on his recent behavior and acknowledges "I was out of control and said some hurtful stuff" noting "I don't usually get like that". 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 Physical Exam Psychiatric Orientation: alert and oriented x 3 Apperance: appropriately dressed and appropriately groomed Eye Contact: good eye contact Motor Behavior: no abnormal motor movements (but does have significant posture issues) Speech: normal rate/rhythm/volume of speech Affect: + constricted affect Mood: + anxious mood; no depressed mood Thought Process: goal directed thought process Thought Content: reality based without delusions Suicidal Thoughts: denies suicidal thoughts, denies suicidal plan and denies suicidal intent Homicidal Thoughts: denies homicidal thoughts Hallucinations: no auditory hallucinations and no visual hallucinations Cognition: recent memory grossly intact, remote memory grossly intact, attention grossly intact and language grossly intact Estimated Intelligence: consistent with education level Insight: + limited insight Judgment: + limited judgement Vital Signs (Past 24 Hours) Last Vital Signs Temp 36.7 C 08/17/23 06:41 Pulse 64 08/17/23 06:43 Resp 20 08/17/23 06:41 BP 111/74 08/17/23 06:43 Pulse Ox 99 08/17/23 06:41 O2 Del Method Room Air 08/17/23 06:41 Results & Data ([facility]) Laboratory Results Laboratory Results - last 24 hr 08/16/23 07:25 Fasting Glucose 94 Triglycerides 73 Cholesterol 144 LDL Cholesterol, Calc 88 VLDL Cholesterol, Calc 15 HDL Cholesterol 41 Cholesterol/HDL Ratio 3.5 Current Inpatient Medications Current Inpatient Medications: Current Inpatient Medications Acetaminophen (Acetaminophen 325 Mg Tab) 650 mg PO Q4H PRN PRN Reason: Headache or Minor Fever Stop: 09/13/23 14:51 Last Admin: 08/16/23 10:29 Dose: 650 mg Al Hydrox/Mg Hydrox/Simethicone (Aluminum/Magnesium Susp 30 Ml Udc) 30 ml PO Q4H PRN PRN Reason: GI Upset Stop: 09/13/23 14:51 Atorvastatin Calcium (Atorvastatin 40 Mg Tab) 40 mg PO QAM [facility] Stop: 09/14/23 08:59 Last Admin: 08/16/23 09:14 Dose: 40 mg Bismuth Subsalicylate (Bismuth Subsalicylate Liqd 236 Ml) 15 ml PO PRN PRN PRN Reason: Loose Stool Stop: 09/13/23 14:51 Calcium/Vitamin D (Calcium 600mg + Vit D 400 Iu Tab) 1 tab PO BID [facility] Stop: 09/13/23 20:59 Last Admin: 08/16/23 21:34 Dose: 1 tab Diclofenac Sodium (Diclofenac Sod 1% Gel 100 Gm Tube) 2 gm EXT QID [facility]; Protocol Stop: 09/13/23 20:59 Last Admin: 08/16/23 21:36 Dose: 2 gm Escitalopram Oxalate (Escitalopram Oxalate 10 Mg Tab) 15 mg PO [facility] Stop: 09/14/23 08:59 Last Admin: 08/16/23 09:15 Dose: 15 mg Folic Acid (Folic Acid 1 Mg Tab) 1 mg PO [facility] Stop: 09/14/23 08:59 Last Admin: 08/16/23 09:15 Dose: 1 mg Hydroxyzine HCl (Hydroxyzine Hcl 25 Mg Tab) 50 mg PO HSZ PRN PRN Reason: Insomnia Stop: 09/13/23 14:51 Last Admin: 08/16/23 02:56 Dose: 50 mg Hydroxyzine HCl (Hydroxyzine Hcl 25 Mg Tab) 25 mg PO Q4H PRN PRN Reason: Anxiety Stop: 09/13/23 14:51 Lisinopril (Lisinopril 20 Mg Tab) 20 mg PO [facility] Stop: 09/14/23 08:59 Last Admin: 08/16/23 09:16 Dose: 20 mg Magnesium Hydroxide (Magnesium Hydroxide Susp 30 Ml Udc) 30 ml PO DAILY PRN PRN Reason: Constipation Stop: 09/13/23 14:51 Metoprolol Succinate (Metoprolol Succ 50mg Ext Rel Tab) 50 mg PO [facility] Stop: 09/14/23 08:59 Last Admin: 08/16/23 09:17 Dose: 50 mg Miscellaneous (Remove Nicoderm Patch) 1 each N/A DAILY@0859 [facility] Stop: 09/14/23 08:58 Last Admin: 08/16/23 06:59 Dose: 1 each Nicotine (Nicotine 21 Mg/24 Hr Tdsy) 21 mg TD [facility] Stop: 09/14/23 08:59 Last Admin: 08/16/23 09:24 Dose: 21 mg Nicotine Polacrilex (Nicotine Polacrilex 2 Mg Gum) 2 piece MT PRN PRN PRN Reason: tobacco withdrawal Stop: 09/13/23 17:35 Nitroglycerin (Nitroglycerin Sl 0.4 Mg/Tab Tab) 0.4 mg SL Q5M PRN PRN Reason: Chest Pain Stop: 09/13/23 17:18 Olanzapine (Olanzapine 10 Mg Tab) 10 mg PO HS [facility] Stop: 09/15/23 21:59 Last Admin: 08/16/23 21:35 Dose: 10 mg Pantoprazole Sodium (Pantoprazole 40 Mg Tab) 40 mg PO DAILY [facility] Stop: 09/13/23 17:59 Last Admin: 08/16/23 09:17 Dose: 40 mg Rivaroxaban (Rivaroxaban 20 Mg Tab) 20 mg PO QDD [facility] Stop: 09/13/23 17:44 Last Admin: 08/16/23 17:49 Dose: 20 mg Sodium Chloride (Sodium Chloride 0.65% Na Soln 45 Ml ([place])) 1 - 2 sprays NA PRN PRN PRN Reason: Nasal Dryness/Congestion Stop: 09/13/23 14:51 Thiamine HCl (Thiamine Hcl 100 Mg Tab) 100 mg PO QAM [facility] Stop: 09/14/23 08:59 Last Admin: 08/16/23 09:18 Dose: 100 mg Vitamin D (Cholecalciferol 5,000 Units 125 Mcg Tab) 5,000 units PO QAM [facility] Stop: 09/14/23 08:59 Last Admin: 08/16/23 09:14 Dose: 5,000 units Mental Health & Subst Abuse Tx Psychiatrist Name of Psychiatrist: Marnie Toledo Psychiatrist's Date Of Appointment With Psychiatric Provider: 08/22/23 Time of Appointment with Psychiatrist: 11:30 AM Psychiatric Appointment Comment: [address], [place] [address] Therapist Name of Therapist: Marnie Counseling Therapist's Date of Therapist Appointment: 10/16/22 Time of Therapist Appointment: 11:00 AM Therapy Appointment Comment: [address], [place] [address] Industrial Roofer Name of Industrial Roofer: Shanna Woodard Phone Number for Industrial Roofer: [phone] Case Management Appointment Comment: Please resume your normal schedule. Post Discharge Appointments Primary Care Physician Name Of Family Doctor/PCP: DAVID Ernst Primary Care Date of Future Appointment with PCP: 08/23/23 Time of Appointment with PCP: 11:30 AM Provider Appointment Comment: [address], [address], [place], [place] [address] Contact Information Discharge Discharge Address: N/A (2) Depression, unspecified Depression Type: reactive depression Qualified Code(s): F32.9 - Major depressive disorder, single episode, unspecified
[2023-08-17] MEDS: ATORVASTATIN 40 MG TAB PO SCH (08:58)
[2023-08-17] MEDS: DICLOFENAC SOD 1% GEL 100 GM TUBE EXT SCH ×4 (08:59→20:21)
[2023-08-17] MEDS: CALCIUM 600MG + VIT D 400 IU TAB PO SCH ×2 (08:59→20:20)
[2023-08-17] MEDS: CHOLECALCIFEROL 5,000 UNITS 125 MCG TAB PO SCH (08:59)
[2023-08-17] MEDS: ESCITALOPRAM OXALATE 10 MG TAB PO SCH (09:00)
[2023-08-17] MEDS: FOLIC ACID 1 MG TAB PO SCH (09:01)
[2023-08-17] MEDS: lisinopril 20 MG TAB PO SCH (09:01)
[2023-08-17] MEDS: METOPROLOL SUCC 50MG EXT REL TAB PO SCH (09:01)
[2023-08-17] MEDS: NICOTINE 21 MG/24 HR TDSY TD SCH (09:01)
[2023-08-17] MEDS: THIAMINE HCL 100 MG TAB PO SCH (09:02)
[2023-08-17] MEDS: PANTOprazole 40 MG TAB PO SCH (09:02)
[2023-08-17] MEDS: ACETAMINOPHEN 325 MG TAB PO PRN ×2 (13:12→20:56)
[2023-08-17] MEDS: RIVAROXABAN 20 MG TAB PO SCH (17:32)
[2023-08-17] MEDS: OLANZapine 10 MG TAB PO SCH (20:22)
[2023-08-18 06:35] VITALS: BP 150/83; RESP 18; TEMP 98.3
--- NOTE | 2023-08-18 08:32 | Discharge Summary ---
Date of Service August 18, 2023 History of Present Illness Timmy was admitted medically following a suicide attempt via overdose of Seroquel 1,800mg in the context of psychosocial stressors particularly being kicked out of his local correction, [facility], after making a racial slur to another resident there. Following medical stability in noted some improvement in his mood but still with periods of SI related to his homelessness noting "when all is said and done I'm going to be back on the street". Describes his suicide attempt occurring the context of feeling "betrayed" by the supervisor grips at [facility] when he was asked to leave and "embarrassment" from an event earlier that day when he tried to buy some medical marijuana paraphernalia and his account was overdrawn and again when he had to "stand on the side of the street with all of my stuff". He remains very frustrated by a peer at the [facility] and feels they are to blame for his departure. He has been struggling with insomnia, found the Valium he got the medical floor to be very helpful. He is currently prescribed psychiatric medications of Seroquel 300mg po HS and escitalopram 15mg daily. Psychiatric ROS notable for no current nor history of symptoms of beatriz nor psychosis. Physical Exam Vital Signs (Past 24 Hours) Last Vital Signs Temp 36.8 C 08/18/23 06:00 Pulse 80 08/18/23 06:00 Resp 18 08/18/23 06:00 BP 150/83 H 08/18/23 06:00 Pulse Ox 99 08/18/23 06:00 O2 Del Method Room Air 08/18/23 06:00 See admission H&P and DOD summary. Principal Diagnosis Unspecified depressive disorder Psychiatric Data See daily stay summary. In short, safety was maintained and the patient was cooperative with care. At times he required staff redirection to maintain appropriate boundaries with peers. Medication changes included discontinuation of Seroquel (had been held since overdose), discontinuation of Valium (started during his medical admission) and initiation of olanzapine 10mg HS po for unspecified mood disorder and off-label for insomnia and they tolerated this well. Baseline labs of fasting glucose, fasting lipid profile, and weight were preformed and normal. Recommend repeat weight in one month. Recommend repeat fasting glucose, HbA1c (if indicated) and fasting lipid profile every 12 weeks and then annually. If symptoms arise recommend checking BP, EKG, prolactin level as clinically indicated or relevant. A safety plan was completed prior to discharge. Leading up to discharge he consistently denied any SI. On the day of discharge he stated his mood was "good", continued to deny SI, made jokes with staff and peers, and remained future-oriented including seeing his family for Thanksgiving, booking himself a motel "once I have my chromebook back I can book myself a hotel till I see my family", retrieving some items from [facility]'s storage, and working to remove his rep payee "I can manage my own money" and engaging in aftercare appointments for psychiatry, therapy and meeting with his pillowcase sewer. Day of Discharge Assessment Today the patient voices readiness for discharge. They note improvement in mood and anxiety. They deny thoughts of harm to self or others. Thoughts are organized and they are clinically improved from admission. There is no evidence of psychosis. They improved in the hospital with support and medication adjustments. They agree to take medications as prescribed and keep follow-up appointments. At the time of the discharge they are deemed to be stable and appropriate for outpatient level of care. They are not deemed to be at imminent risk of harm to self or others. They are aware of emergency and crisis services. Knows to call 911 or go to nearest emergency care center if in a crisis which cannot be handled as an outpatient. Overall, I spent a total of 36 minutes with this discharge including review of chart records, direct evaluation of the patient at bedside, counseling the patient, discussion during interdisciplinary treatment rounds, risk assessment and safety planning, disposition planning, and documentation in the electronic health record. Transition of Care Transition Of Care Record: was reviewed with the patient Advance Directives Advance Directives Information Provided: Yes Advance Directives: No Mental Health Advance Directive: No Advance Directives on File: No Living Will: No Power of Embalmer Apprentice: No Advance Directives Reason:: Declines as Mental Health Visit. Suicide Risk Level Suicide Risk Level Comments: Acute risk is low given improvement in mood and denial of SI, lack of access to lethal means, improvement in sleep, hopefulness and future-oriented. Chronic risk is moderate to high given multiple non-modifiable risk factors: psychiatric co-morbid diagnoses, periods of impulsivity, prior attempts, emotional reactivity, chronic illness, prior psychiatric hospitalizations, poor social support, homelessness, mood disorder, likely antisocial personality disorder, childhood trauma, but also with protective factors including: high resiliency/knowledge of utilizing resources to meet his needs, sense of responsibility to family and social supports, outpatient care in place, and positive problem solving. Counseled on ways to reduce acute and chronic risk including engaging with outpatient providers, using safety plan if needed, utilizing supports, taking medication, and using coping skills. Modifiable risk factors of SI and depression were addressed during hospitalization through development of new coping skills, safety planning, and medication adjustments. Risk Factors Assessment Male: Yes : Yes Do You Have Access To A Gun?: No Health Problems: Yes Mental Health Diagnoses: Yes Previous Attempt: Yes Family History of Suicide: No Previous Psychiatric Hospitalization: Yes Hopelessness: No Protective Factors Assessment : No Responsible for Young Children: No Employed: No Stable Relationships: No Supportive Family: No (but in contact w/[id number] and plans to celebrate Thanksgiving together) Good Rapport with Provider: Yes (MAYDA and Marnie providers) Discharge Data Lab Results 08/16/23 07:25 Fasting Glucose 94 Triglycerides 73 Cholesterol 144 LDL Cholesterol, Calc 88 VLDL Cholesterol, Calc 15 HDL Cholesterol 41 Cholesterol/HDL Ratio 3.5 Hospital Course (1) Suicide attempt by drug overdose: (2) Depression, unspecified: (3) Cluster B personality disorder: (4) Trauma and stressor-related disorder: (5) Anxiety disorder, unspecified: Plan 08/17/2023: Continue current medications and tx plan. 08/16/2023: * Increase olanzapine to 10mg HS po * Continue escitalopram 15mg daily 08/15/2023: The patient was admitted to the [facility] ([facility]) on q15 min checks (behavioral with suicide precautions) for safety. The patient will participate in group, recreational, and milieu therapies and will be offered additional individual and family sessions as clinically appropriate. -Continue escitalopram 15mg daily -Taper to discontinue Valium started on the medical floor (tapered from 10mg to 5mg last night, will discontinue today) -Start olanzapine 5mg HS po -Discontinued Seroquel (has not gotten since the overdose) -fasting lipid panel and glucose in AM Mental Health & Subst Abuse Tx Psychiatrist Name of Psychiatrist: Marnie - Dr. [place] Psych[facility] Date Of Appointment With Psychiatric Provider: 08/22/23 Time of Appointment with Psychiatrist: 11:30 AM Psychiatric Appointment Comment: [address], [place] [address] Therapist Name of Therapist: [facility] Date of Therapist Appointment: 10/16/22 Time of Therapist Appointment: 11:00 AM Therapy Appointment Comment: [address], [place] [address] Dairy Farm Worker Name of Dairy Farm Worker: Shanna Woodard Phone Number for Dairy Farm Worker: [phone] Case Management Appointment Comment: Please resume your normal schedule. Post Discharge Appointments Primary Care Physician Name Of Family Doctor/PCP: [facility] Date of Future Appointment with PCP: 08/23/23 Time of Appointment with PCP: 11:30 AM Provider Appointment Comment: [address], [address], [place] [address] Other #1: Name of Aftercare Appointment: Housing Transitions - [address] Line Phone Number of Aftercare Appointment: [phone] Aftercare Appointment Comment: Please call for additional resources for assistance with housing. Contact Information Discharge Discharge Address: N/A Discharge Plan Discharge Items Patient Disposition: Home - Self-Care Reason For Visit: UNSPECIFIED DEPRESSIVE DISORDER Discharge Diagnosis: Unspecified Depressive Disorder Activity: Resume your previous activity Non-emergency contact: Primary Care Provider, Psychiatrist, Therapist and Pharmacy Intake Technician Call non-emergency contact if: you have any medication questions and your symptoms worsen Follow-up/Referrals: Riley Ernst DO [Primary Care Provider] - Diet: Regular Addtl Attending Provider Instructions: SPECIAL CARE INSTRUCTIONS: 1. Follow through with your scheduled aftercare appointments. If unable to keep an appointment, please call to reschedule. 2. Take your medication only as prescribed. Medication should not be changed or stopped without the approval of your doctor. In the event of worsening symptoms or concerns about side effects, contact your doctor immediately. 3. Utilize new healthy coping skills, anger management skills, and stress management skills learned during your hospitalization. Journal feelings and process them with a support person. Identify stressors or situations that may result in relapse, deterioration or inappropriate behaviors and develop a plan to deal with those issues. 4. If your coping skills are ineffective and you are in crisis, contact your outpatient providers for direction. If unable to reach your providers, please call the [facility] CRISIS LINE AT , go to the [facility] walk-in center at [address], [address], [place], or go to the closest Emergency Room. 5. Avoid alcohol and un-prescribed drugs. 6. You have been provided with the Mental Health Advance Directives Pamphlet for your review. 7. Your condition is stable for discharge to outpatient level of care, but recovery is an ongoing process. Ifthoughts to harm yourself or others return, follow the safety plan developed during your stay. Planning for a safe return home includes securing weapons. Our treatment team recommends weaponsbe removed from the home until your outpatient provider reassesses your progress. In rare cases where the items themselvescannot be removed, guns and ammunitionshould be secured separatelyand keys stored by a reliable personoutside of the home. If you were admitted on an involuntary commitment, the police or other legal authorities may be involved in this process. AFTERCARE APPOINTMENTS: * Please call your insurance company prior to your scheduled appointment to confirm your aftercare providers are covered. Take your insurance information to your appointments. WHO TO CALL AND WHEN: Medical Emergencies: For questions or emergencies related to your hospital stay, please contact the Inpatient Behavioral Health Unit at [phone]. A paper roller is on-call 24/04 for the Behavioral Health Unit for emergencies At any time you feel your situation is an emergency, you may also call 911 immediately. National Crisis Line: 985 Pending Studies at Discharge: No Stand-Alone Forms: [facility], Smoking Cessation Medications and DC Order Prescriptions: New olanzapine 10 mg Tablet 10 mg PO HS 30 Days Qty: 30 0RF Continued pantoprazole 40 mg tablet,delayed release (DR/EC) 40 mg PO DAILY Qty: 90 3RF lisinopril 20 mg tablet 20 mg PO QAM Qty: 90 3RF metoprolol succinate 50 mg tablet extended release 24 hr 50 mg PO QAM Qty: 180 3RF nitroglycerin 0.4 mg tablet, sublingual 0.4 mg sublingual Q5M PRN (Reason: Chest Pain) Rx Instructions: do not exceed 3 doses per episode atorvastatin 40 mg tablet 40 mg PO QAM escitalopram oxalate 10 mg tablet 15 mg PO QAM Rx Instructions: TAKE 1 & 1/2 TABLETS BY MOUTH EVERY MORNING Xarelto 20 mg tablet 20 mg PO QPM Rx Instructions: TAKE 1 TABLET ORALLY DAILY FOR 30 DAYS MUST ADMINISTER WITH EVENING MEAL thiamine HCl (vitamin B1) 100 mg Tablet 100 mg PO QAM Qty: 30 0RF folic acid 1 mg Tablet 1 mg PO QAM Qty: 30 0RF diclofenac sodium [Voltaren Arthritis Pain] 1 % Gel 2 g EXT QID Qty: 25 0RF cholecalciferol (vitamin D3) 125 mcg (5,000 unit) Tablet 5,000 unit PO QAM Qty: 30 0RF Caltrate 600-D Plus Minerals 600 mg calcium- 800 unit-50 mg Tablet 1 tab PO BID Qty: 30 0RF Medical Marijuana 1 dose inhalation UD Discontinued quetiapine [Seroquel] 300 mg tablet 300 mg PO HS Qty: 30 2RF Discharge Orders: Discharge Order (Routine); Ordered 08/18/23 Ordered By: Blossom Vanessa Admission Data Admit Date/Time: 08/14/23 16:25 Attending Provider: Blossom Vanessa Admit Provider: Blossom Vanessa Primary Care Provider: Riley Ernst Other Interventions: Discharge Summary Assessment (RN) Last Done: 08/18/23 13:55 Coding Level of Care Code 50027 D/C day mgmt > 30 min Diagnoses Suicide attempt by drug overdose T50.902A Reactive depression F32.9 Depression Type: reactive depression Cluster B personality disorder F60.89 Trauma and stressor-related disorder F43.9 Anxiety disorder, unspecified F41.9
[2023-08-18] MEDS: FOLIC ACID 1 MG TAB PO SCH (08:33)
[2023-08-18] MEDS: PANTOprazole 40 MG TAB PO SCH (08:33)
[2023-08-18] MEDS: CALCIUM 600MG + VIT D 400 IU TAB PO SCH (08:33)
[2023-08-18] MEDS: ATORVASTATIN 40 MG TAB PO SCH (08:33)
[2023-08-18] MEDS: CHOLECALCIFEROL 5,000 UNITS 125 MCG TAB PO SCH (08:33)
[2023-08-18] MEDS: lisinopril 20 MG TAB PO SCH (08:33)
[2023-08-18] MEDS: ESCITALOPRAM OXALATE 10 MG TAB PO SCH (08:33)
[2023-08-18] MEDS: THIAMINE HCL 100 MG TAB PO SCH (08:33)
[2023-08-18] MEDS: DICLOFENAC SOD 1% GEL 100 GM TUBE EXT SCH ×2 (08:34→12:52)
[2023-08-18] MEDS: ACETAMINOPHEN 325 MG TAB PO PRN (08:35)
[2023-08-18] MEDS: METOPROLOL SUCC 50MG EXT REL TAB PO SCH (08:35)
[2023-08-18] MEDS: NICOTINE 21 MG/24 HR TDSY TD SCH (08:36)
[2023-08-18] MEDS ORDERED: DESTROY THIS MEDICATION ONE (13:58)
[2023-08-18 13:59] VITALS: PULSE 59
== END 2023-08-18 14:25 | disposition home or self-care (01) | DRG 881 ==
LOC: 3S 16:25
DX: F17.210 Nicotine dependence, cigarettes, uncomplicated; F43.9 Reaction to severe stress, unspecified; Z88.8 Allergy status to other drugs, medicaments and biological substances; F32.9 Major depressive disorder, single episode, unspecified; Z59.00 Homelessness unspecified; I25.2 Old myocardial infarction; F41.9 Anxiety disorder, unspecified; T50.992A Poisoning by other drugs, medicaments and biological substances, intentional self-harm, initial encounter

== ENCOUNTER 2023-08-21 00:23 | Observation (INO) ==
[2023-08-21] MEDS ORDERED: NICOTINE 21 MG/24 HR TDSY TD STA (00:36)
--- NOTE | 2023-08-21 00:36 | Emergency Department Note ---
History of Present Illness General Chief complaint: Chest Pain Time Seen by Provider: 08/21/23 00:31 History of Present Illness This 62-year-old gentleman presents ER complaining of chest pain that is exertional for the past few hours. He states he had a prior heart attack many years ago. He continues to smoke and uses medical marijuana. Patient is fever, chills, abdominal pain, flulike illness. Patient is currently unhomed. Home Medications Medication Instructions Recorded Confirmed Type nitroglycerin 0.4 mg sublingual 0.4 mg sublingual Q5M PRN Chest 12/23/22 08/21/23 History tablet Pain Medical Marijuana 1 dose inhalation UD 02/02/23 08/21/23 History atorvastatin 40 mg tablet 40 mg PO QAM 07/11/23 08/21/23 History escitalopram oxalate 10 mg tablet 15 mg PO QAM 08/10/23 08/21/23 History rivaroxaban 20 mg tablet (Xarelto) 20 mg PO QPM 08/10/23 08/21/23 History calcium 600 mg-D3 800 unit-mag11 1 tab PO BID #30 tabs 08/14/23 08/21/23 Rx 50 lg-ksnm-fcogri-irvin-s.borat tablet (Caltrate 600-D Plus Minerals) cholecalciferol (vitamin D3) 125 5,000 unit PO QAM #30 tabs 08/14/23 08/21/23 Rx mcg (5,000 unit) tablet diclofenac sodium 1 % topical gel 2 g EXT QID #25 grams 08/14/23 08/21/23 Rx (Voltaren Arthritis Pain) folic acid 1 mg tablet 1 mg PO QAM #30 tabs 08/14/23 08/21/23 Rx thiamine HCl (vitamin B1) 100 mg 100 mg PO QAM #30 tabs 08/14/23 08/21/23 Rx tablet lisinopril 20 mg tablet 20 mg PO QAM #90 tabs 08/18/23 08/21/23 Rx metoprolol succinate 50 mg 50 mg PO QAM #180 tabs 08/18/23 08/21/23 Rx tablet,extended release 24 hr olanzapine 10 mg tablet 10 mg PO HS unspecified mood 08/18/23 08/21/23 Rx disorder 30 days #30 tabs pantoprazole 40 mg tablet,delayed 40 mg PO DAILY #90 tabs 08/18/23 08/21/23 Rx release bupropion HCl 150 mg 24 hr tablet, 150 mg PO QAM 08/21/23 08/21/23 History extended release Allergies Allergy/AdvReac Type Severity Reaction Status Date / Time haloperidol [From Haldol] AdvReac Intermediate muscle Verified 08/02/23 08:56 cramping Past Med/Surg History Medical History Medical marijuana use Lives in homeless prison History of COVID-19 11/2022- [facility]- no symptoms Seasonal allergies COPD (chronic obstructive pulmonary disease) Hx of myocardial infarction 2013 Poor historian Dyslipidemia Depression GERD (gastroesophageal reflux disease) Trauma and stressor-related disorder Anxiety disorder, unspecified HTN (hypertension) Atrial fibrillation managed w/ xarelto- unsure who cardio is Surgical History Hx of colonoscopy History of open reduction and internal fixation (ORIF) procedure elbow Hx of cardiac catheterization x2 stents - unsure when; sometime after 2013 in [place], [place] S/P CABG x 3 2014- unsure who cardio is- done in [place], [place] Family History Mother Cancer Myocardial infarction Ovarian cancer Father Prostate cancer Myocardial infarction Denies family history of Diabetes Breast cancer Lung cancer Colorectal cancer Stroke Social History Smoking Status: Current every day smoker Tobacco Type: Cigarettes packs per day: 1; Cigarettes Per Day: 20; Second Hand Exposure: Yes; Do You Dip or Chew Tobacco: No; Hx Alcohol Use: No Hx Substance Use: Yes Prescribed Medications: Marijuana Last Used Substance: Unknown Substance Use Type Other:: medical marijuana Preferred Language: [place] Communication Ability: Effective Visual Impairment: Diminished Hearing Ability: Normal 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 Beliefs That Will Affect Care: None marital status: Single Current Living Situation: Other Current Living Situation Comment: out of the cold current occupational status: disabled How many Children do You have: 0 Feels Safe at Home: Yes Childhood Exposure to Second-Hand Smoke: Yes caffeine: Yes Dental Care, Regularly: No Physical Activity Frequency: Daily Seatbelt Use: always Sunscreen Use: Yes Gender Identity: Male Assistive Devices: Denture - Upper, Denture - Lower and Glasses Review of Systems A total of 10 systems reviewed and were otherwise negative Physical Exam Vital Signs Vital Signs - 24 hr 08/21/23 00:30 08/21/23 00:30 08/21/23 00:30 Pulse Rate 93 H Respiratory Rate 14 Respiratory Effort / Characteristics Non-Labored Spontaneous Non-Labored Spontaneous Respiratory Depth Normal Normal Blood Pressure 135/84 Blood Pressure Mean 101 Pulse Oximetry 95 95 Oxygen Delivery Method Room Air Room Air Sepsis New/Unexplained Change in Mental Status No Sepsis Action Taken by Nursing No Action Required 08/21/23 00:30 08/21/23 00:31 08/21/23 00:46 Pulse Rate 82 Respiratory Rate Respiratory Effort / Characteristics Respiratory Depth Blood Pressure Blood Pressure Mean Pulse Oximetry 95 95 Oxygen Delivery Method Room Air Room Air Sepsis New/Unexplained Change in Mental Status Sepsis Action Taken by Nursing VITALS: Vitals are noted on the nurse's note and reviewed by myself. Vital signs stable. GENERAL: white male, in no acute distress, nondiaphoretic, well-developed well- nourished. SKIN: The skin was without rashes, erythema, edema, or bruising. There is no tenting of the skin. Capillary reflex less than 2 seconds. HEAD: Normocephalic atraumatic. EARS: External auditory canals clear, EYES: Pupils equal round and reactive to light and accommodation. Conjunctivae without injection, sclerae without icterus. Extraocular movements intact. NOSE: Patent, turbinates without inflammation or discharge. MOUTH: Mucous membranes moist. Pharynx without erythema or exudate. Uvula midline. Airway patent. Tongue does not deviate. NECK: Supple without nuchal rigidity. No lymphadenopathy. No thyromegaly. Cervical spine is nontender. No JVD. HEART: Regular rate and rhythm LUNGS: Clear to auscultation bilaterally without wheezes, rales or rhonchi. No retractions or accessory muscle use. ABDOMEN: Positive bowel sounds x 4. Normal tympanic percussion. Soft, nontender, without masses or organomegaly. Olmstead sign negative. No guarding or rebound tenderness. No CVA tenderness MUSCULOSKELETAL: No muscle atrophy, erythema, or edema noted. NEURO: Patient was alert and oriented to person place and time. Normal sensation to light and sharp touch. No focal neurological deficits. Course Administered Medications Discontinued Medications Nicotine (Nicotine 21 Mg/24 Hr Tdsy) 21 mg TD NOW STA Stop: 08/21/23 00:37 Last Admin: 08/21/23 01:15 Dose: 21 mg Documented By: ESTELA Medical Decision Making Medical Records Attestation: I reviewed the patient's medical records. Home Medications Current Medication List: was personally reviewed by me Laboratory Data Attestation: I reviewed the patient's lab results. 08/21/23 00:36 08/21/23 00:36 Lab Results 08/21/23 Range/Units 00:36 WBC 8.14 (4.8-10.8) K/ul RBC 4.09 L (4.70-6.10) M/uL Hgb 13.6 L (14.0-18.0) g/dl Hct 40.3 L (42.0-52.0) % MCV 98.5 (80.0-100.0) fL MCH 33.3 (25.0-34.0) pg MCHC 33.7 (32.0-36.0) g/dL RDW Std Deviation 53.3 H (36.4-46.3) fL RDW Coeff of Spencer 14.6 H (11.5-14.5) % Plt Count 197 (130-400) K/uL MPV 10.5 (9.4-12.4) fL Immature Gran % (Auto) 0.2 % Neut % (Auto) 66.3 % Lymph % (Auto) 17.0 % [place] % (Auto) 12.4 % Eos % (Auto) 3.9 % Baso % (Auto) 0.2 % Neut # (Auto) 5.39 (1.40-6.50) K/uL Lymph # (Auto) 1.38 (1.20-3.40) K/uL [place] # (Auto) 1.01 H (0.11-0.59) K/uL Eos # (Auto) 0.32 (0.00-0.50) K/uL Baso # (Auto) 0.02 (0.00-0.20) K/uL Immature Gran # (Auto) 0.02 (0.01-0.20) K/uL Sodium 136 (136-145) mmol/L Potassium 3.5 (3.5-5.1) mmol/L Chloride 103 (98-107) mmol/L Carbon Dioxide 26 (21-32) mmol/L Anion Gap 7 (3-11) BUN 24 H (6-23) mg/dl Creatinine 0.99 (0.6-1.4) mg/dl Est Cr Clr Drug Dosing 82.4 ml/min Est GFR ( Amer) 94.2 ml/min Est GFR (Non-Af Amer) 81.3 ml/min BUN/Creatinine Ratio 24.2 H (10-20) Glucose 97 (70-99(Fasting)) mg/dl Calcium 9.0 (8.6-10.3) mg/dl Magnesium 2.0 (1.7-2.4) mg/dl Total Bilirubin 0.5 (0.2-1.0) mg/dl AST 33 (13-39) U/L ALT 21 (7-52) U/L Alkaline Phosphatase 79 (34-104) U/L Troponin I High Sens 23.4 H (0-20) pg/ml Total Protein 7.8 (6.0-8.3) gm/dl Albumin 4.0 (3.4-5.0) gm/dl Globulin 3.8 (2.5-4.0) gm/dl Albumin/Globulin Ratio 1.1 (0.9-2) Lipase 31 (11-82) U/L Ethyl Alcohol mg/dL < 10.0 (<10.0) mg/dl Imaging Data Attestation: I personally reviewed and interpreted this imaging study as follows: MDM Narrative Prior records/ancillary studies reviewed. Triage Nursing notes reviewed. Additional history obtained from EMS. The patient's history was concerning for chest pain. Differential diagnosis: Etiologies such as cardiac ischemia, aortic dissection, pulmonary embolism, pneumonia, pneumothorax, musculoskeletal, infections, pericarditis, myocarditis, esophageal rupture, gastrointestinal, as well as others were entertained. Physical examination: As above. ER treatment provided: An order was placed for continuous cardiac monitoring. The monitor shows a rate of 60-100 with a sinus rhythm per my interpretation. Nicotine patch Patient is on Xarelto On reassessment the patient felt better. Diagnostic interpretation by me: The electrocardiogram was Ordered for chest pain EKG: Irregularly irregular with a left posterior fascicular block, poor baseline, ventricular rate 84. Impression rate controlled A-fib independently interpreted by myself The labs Independently Interpreted by myself revealed no worrisome leukocytosis, minimally elevated troponin and repeat was ordered Imaging studies: Chest x-ray with no acute consolidation, pneumothorax or free air per my independent interpretation HEART SCORE: Hx: high/mod/low suspicion: 1 ECG: ST depression/nonspecific changes/normal: 0 Age: Greater than 65/45-64/less than 45: 1 Risk factors: (Hypertension, hyperlipidemia, diabetes, coronary disease, tobacco use, cocaine use): 2 Troponin: Greater than 2 times normal limits/1-2 times normal limits/normal: 1 Total: 5 Consultation: A consultation was placed with the hospitalist. The case was discussed and diagnostics were reviewed. The patient was evaluated in the ER for further treatment. Exam and history seem consistent with chest pain with concerns for cardiac in etiology. Symptoms were exertional per patient. Medicine was consulted and case was discussed. He will be evaluated by the medical service for possible admission. Moderate heart score. Unchanged EKG. Negative troponin.By the evaluation outlined above emergent etiologies such as aortic dissection, pulmonary embolism, pneumonia, pneumothorax, infections, pericarditis, myocarditis, gastrointestinal, as well as others were deemed relatively unlikely. The pt informed about the findings as listed above. All questions were answered and pleased with the treatment. The chart was completed utilizing [employer] Speech voice recognition software. Grammatical errors, random word insertions, pronoun errors, and incomplete sentences are an occassional consequence of this system due to software limitations, ambient noise, and hardware issues. Any formal questions or concerns about the content, text, or information contained within the body of this dictation should be directly addressed to the physician res habilitation assistant for clarification. Impression & Plan Chest pain Discharge Plan Visit Data Chief Complaint: Chest Pain ED Provider: Gloria Chávez ED Midlevel Provider: Anne Rajput Discharge Problem: Chest pain Patient Disposition: Being Evaluated by Hospitalist Condition: Good Forms Stand Alone Forms: My [employer] Prescriptions Prescriptions: No Action pantoprazole 40 mg tablet,delayed release (DR/EC) 40 mg PO DAILY Qty: 90 3RF lisinopril 20 mg tablet 20 mg PO QAM Qty: 90 3RF metoprolol succinate 50 mg tablet extended release 24 hr 50 mg PO QAM Qty: 180 3RF nitroglycerin 0.4 mg tablet, sublingual 0.4 mg sublingual Q5M PRN (Reason: Chest Pain) Rx Instructions: do not exceed 3 doses per episode atorvastatin 40 mg tablet 40 mg PO QAM escitalopram oxalate 10 mg tablet 15 mg PO QAM Rx Instructions: TAKE 1 & 1/2 TABLETS BY MOUTH EVERY MORNING Xarelto 20 mg tablet 20 mg PO QPM Rx Instructions: TAKE 1 TABLET ORALLY DAILY FOR 30 DAYS MUST ADMINISTER WITH EVENING MEAL thiamine HCl (vitamin B1) 100 mg Tablet 100 mg PO QAM Qty: 30 0RF folic acid 1 mg Tablet 1 mg PO QAM Qty: 30 0RF diclofenac sodium [Voltaren Arthritis Pain] 1 % Gel 2 g EXT QID Qty: 25 0RF cholecalciferol (vitamin D3) 125 mcg (5,000 unit) Tablet 5,000 unit PO QAM Qty: 30 0RF Caltrate 600-D Plus Minerals 600 mg calcium- 800 unit-50 mg Tablet 1 tab PO BID Qty: 30 0RF bupropion HCl 150 mg tablet extended release 24 hr 150 mg PO QAM Medical Marijuana 1 dose inhalation UD olanzapine 10 mg Tablet 10 mg PO HS 30 Days Qty: 30 0RF Referrals Referrals: Riley Ernst DO [Primary Care Provider] - Discharge Problem: Chest pain Qualifiers: Chest pain type: unspecified Qualified Code(s): R07.9 - Chest pain, unspecified
[2023-08-21 01:29] LABS: Bilirubin,Total 0.5 mg/dl (0.2-1.0); Potassium 3.5 mmol/L (3.5-5.1)
[2023-08-21 01:30] LABS: Basophils # (auto) 0.02 K/uL (0.00-0.20); Basophils % (auto) 0.2 %; Eosinophils # (auto) 0.32 K/uL (0.00-0.50); Eosinophils % (auto) 3.9 %; Hematocrit (blood only) 40.3 % (42.0-52.0); Hemoglobin 13.6 g/dl (14.0-18.0); Immature Granulocytes # (auto) 0.02 K/uL (0.01-0.20); Immature Granulocytes % (auto) 0.2 %; Lymphocytes # (auto) 1.38 K/uL (1.20-3.40); Mean Corpuscular Hemoglobin 33.3 pg (25.0-34.0); Mean Corpuscular Hgb Conc 33.7 g/dL (32.0-36.0); Mean Corpuscular Volume 98.5 fL (80.0-100.0); Mean Platelet Volume 10.5 fL (9.4-12.4); Monocytes # (auto) 1.01 K/uL (0.11-0.59); Monocytes % (auto) 12.4 %; Neutrophils # (auto) 5.39 K/uL (1.40-6.50); Neutrophils % (auto) 66.3 %; Platelet Count 197 K/uL (130-400); RDW Coefficient of Variation 14.6 % (11.5-14.5); RDW Standard Deviation 53.3 fL (36.4-46.3); Red Blood Count 4.09 M/uL (4.70-6.10); White Blood Count 8.14 K/ul (4.8-10.8)
[2023-08-21 01:35] LABS: Albumin Globulin Ratio 1.1 (0.9-2); BUN Creatinine Ratio 24.2 (10-20); Creatinine Clr Calc Pharmacy 82.4 ml/min; Est GFR (African American) 94.2 ml/min; Est GFR (Non-African American) 81.3 ml/min; Globulin 3.8 gm/dl (2.5-4.0); Total Protein 7.8 gm/dl (6.0-8.3)
[2023-08-21 01:38] LABS: Troponin I High Sensitivity 23.4 pg/ml (0-20)
[2023-08-21 02:05] LABS: Amphetamines+Metham, Urine Neg (Neg); Barbiturates, Urine Neg (Neg); Benzodiazepine, Urine Pos (Neg); Cocaine, Urine Neg (Neg); MDMA (Ecstacy), Urine Pos (Neg); Methadone, Urine Neg (Neg); Opiate, Urine Neg (Neg); Phencyclidine, Urine Neg (Neg)
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
[2023-08-21] MEDS ORDERED: NITROGLYCERIN SL 0.4 MG/TAB TAB SL PRN (03:23)
[2023-08-21] MEDS: ACETAMINOPHEN 325 MG TAB PO PRN ×2 (03:51→08:29)
--- NOTE | 2023-08-21 07:39 | XRay Report ---
XR chest 1V portable HISTORY: Chest pain, nonspecific COMPARISON: Chest 08/10/2023. FINDINGS: No pneumothorax. No pleural effusions. The heart remains enlarged. Chronic interstitial thi ckening persists. No new focal lung consolidations to suggest a pneumonia. No evidence for pulmonary edema. There are poststernotomy changes. No acute fractures. IMPRESSION: No significant change compared to the prior study. No acute process. ACT 112: Negative or not required by law. Electronically signed by: Douglas Velasquez M.D. 08/21/2023 7:38 AM
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
[2023-08-21] MEDS: FOLIC ACID 1 MG TAB PO SCH (10:51)
[2023-08-21] MEDS: NICOTINE 21 MG/24 HR TDSY TD SCH (10:51)
[2023-08-21] MEDS: THIAMINE HCL 100 MG TAB PO SCH (10:51)
[2023-08-21] MEDS: CHOLECALCIFEROL 5,000 UNITS 125 MCG TAB PO SCH (10:51)
[2023-08-21] MEDS: METOPROLOL SUCC 50MG EXT REL TAB PO SCH (10:51)
[2023-08-21] MEDS: CALCIUM 600MG + VIT D 400 IU TAB PO SCH ×2 (10:51→22:10)
[2023-08-21] MEDS: PANTOprazole 40 MG TAB PO SCH (10:52)
[2023-08-21] MEDS: ESCITALOPRAM OXALATE 10 MG TAB PO SCH (10:52)
[2023-08-21] MEDS: ATORVASTATIN 40 MG TAB PO SCH (10:52)
[2023-08-21] MEDS: DICLOFENAC SOD 1% GEL 100 GM TUBE EXT SCH ×4 (10:53→22:10)
[2023-08-21] MEDS: buPROPion XL 150 MG TABCR PO SCH (10:53)
[2023-08-21] MEDS: lisinopril 20 MG TAB PO SCH (11:06)
--- NOTE | 2023-08-21 19:02 | Billing Data ---
Date of Service August 21, 2023 Coding Level of Care Code 98137 SUB INP/OBS CARE
[2023-08-21] MEDS ORDERED: RIVAROXABAN 20 MG TAB PO SCH (21:00)
[2023-08-21] MEDS ORDERED: OLANZapine 10 MG TAB PO SCH (21:00)
[2023-08-21] MEDS ORDERED: MELATONIN 3 MG TAB PO PRN (22:03)
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
[2023-08-22] MEDS: FOLIC ACID 1 MG TAB PO SCH (07:53)
[2023-08-22] MEDS: ESCITALOPRAM OXALATE 10 MG TAB PO SCH (07:53)
[2023-08-22] MEDS: THIAMINE HCL 100 MG TAB PO SCH (07:54)
[2023-08-22] MEDS: CALCIUM 600MG + VIT D 400 IU TAB PO SCH (07:54)
[2023-08-22] MEDS: lisinopril 20 MG TAB PO SCH (07:54)
[2023-08-22] MEDS: METOPROLOL SUCC 50MG EXT REL TAB PO SCH (07:54)
[2023-08-22] MEDS: CHOLECALCIFEROL 5,000 UNITS 125 MCG TAB PO SCH (07:54)
[2023-08-22] MEDS: buPROPion XL 150 MG TABCR PO SCH (07:55)
[2023-08-22] MEDS: PANTOprazole 40 MG TAB PO SCH (07:55)
[2023-08-22] MEDS: ATORVASTATIN 40 MG TAB PO SCH (07:55)
[2023-08-22] MEDS: DICLOFENAC SOD 1% GEL 100 GM TUBE EXT SCH ×2 (07:56→12:38)
[2023-08-22] MEDS: NICOTINE 21 MG/24 HR TDSY TD SCH (08:03)
[2023-08-22] MEDS ORDERED: REGADENOSON 0.4 MG/5 ML SYR IV ONE (09:58)
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
--- NOTE | 2023-08-22 16:47 | Myocardial Perfusion Study ---
Date of Service August 22, 2023 Myocardial Perfusion Study [facility] Myocardial Perfusion Study Report Procedure: 1. Myocardial perfusion study performed in multiple views/images 2. Lexiscan pharmacologic stress ECG Indications: 1. Chest pain 2. CABG Ordering provider: Dr. Wynne Procedural details: For the stress portion of the study, Lexiscan 0.4 mg was intravenously administered followed by a saline flush. This was followed by 30 mCi of technetium 99m Cardiolite, injected at 11:20 AM on 08/22/2023. 30 minutes following the injection, imaging of the heart was performed in multiple projections. For the rest portion of the study, 10.5 mCi technetium 99m Cardiolite was injected intravenously at 9:25 AM on 08/22/2023. 1 hour following the injection, imaging of the heart was performed in the same projections. Lexiscan stress ECG: Resting ECG demonstrated: Atrial fibrillation with slow ventricular response 44 bpm. Maximum heart rate: 82 bpm Maximal, age-predicted heart rate: 51% Resting blood pressure: 130/97 mmHg Maximum blood pressure: 152/[address] changes: None Arrhythmia: Atrial fibrillation throughout Symptoms: Nausea Findings: Rotating raw imaging demonstrated no significant lung uptake. There is no significant motion artifact. Heart size appeared normal. Myocardial perfusion demonstrated a small area of mildly reduced uptake involving the mid to distal anterior wall and apex. This defect was fixed in rest and poststress imaging. There were no reversible defects to suggest significant ischemia. Ejection fraction: 59% Wall motion: Normal (gated images are difficult in the setting of atrial fibrillation and may limit EF and wall motion analysis) No significant transient ischemic dilation. Impression: 1. Negative myocardial perfusion study for ischemia. 2. Small fixed anterior and apical defect may be due to artifact given normal wall motion but cannot exclude small infarct. 3. Normal wall motion and LV systolic function. EF 59%. 4. Lexiscan induced nausea. 5. Nondiagnostic Lexiscan ECG. [facility] Myocardial perfusion code Procedure Code Procedure 1: Myocardial Perfusion Codes: 27769 Cardiovascular Stress Test, multiple Procedure 2: Myocardial Perfusion Codes: 81262 Cardiovascular Stress Test, supervision only Procedure 3: Myocardial Perfusion Codes: 03316 Cardiovascular Stress Test, interpretation and report
--- NOTE | 2023-08-22 17:55 | Billing Data ---
Date of Service August 22, 2023 Coding Level of Care Code 51966 IN/OBS DISCH 30 MIN/LESS
--- NOTE | 2023-08-23 23:17 | Electrocardiogram Report ---
Test Reason : Blood Pressure : / mmHG Vent. Rate : 084 BPM Atrial Rate : 000 BPM P-R Int : 000 ms QRS Dur : 088 ms QT Int : 392 ms P-R-T Axes : 000 121 -17 degrees QTc Int : 463 ms Atrial fibrillation Nonspecific ST and T wave abnormality Abnormal ECG When compared with ECG of 12-AUG-2023 08:32, QRS axis Shifted right T wave inversion now evident in Inferior leads Confirmed by Alejandro Ruvalcaba ([id number]) on 08/23/2023 11:17:17 PM Referred By: REFERRED SELF Confirmed By:Alejandro Ruvalcaba
== END 2023-08-22 04:30 | disposition home or self-care (01) ==
LOC: ED 00:23 → EDINP 00:23 → SUATTDRO 02:14 → 2S 20:35